=== PATIENT | male | born 1980 | race African-American/Black ===

== ENCOUNTER 2020-06-30 10:59 | Inpatient (IN) | payer MEDICAID, OTHER ==
[2020-06-30] VITALS (15 sets, daily range): BP systolic 133–197; BP diastolic 79–120
[~2020-06-30] VITALS: Ht 172.7 cm; Wt 91.9 kg
[2020-06-30] MEDS ORDERED: SODIUM CHLORIDE 0.9% 1,000 ML IVB ONE (11:30)
[2020-06-30 12:03] LABS: Basophils # (auto) 0 10 ^3/uL (0-0.2); Basophils % (auto) 0.1 % (0.0-2.0); Eosinophils # (auto) 0 10 ^3/uL (0-0.8); Eosinophils % (auto) 0.2 % (0.0-7.0); Hematocrit 36.7 % (41.0-53.0); Hemoglobin 12.2 g/dL (13.5-17.5); Lymphocytes # (auto) 0.4 10 ^3/uL (0.4-5.4); Lymphocytes % (auto) 3.5 % (10.0-50.0); Mean Corpuscular Hemoglobin 22.8 pg (28.0-32.0); Mean Corpuscular Hgb Conc. 33.2 g/dL (32.0-36.0); Mean Corpuscular Volume 68.7 fL (80.0-100.0); Monocytes # (auto) 1.3 10 ^3/uL (0-1.3); Monocytes % (auto) 10.7 % (0.0-12.0); Neutrophils # (auto) 10.6 10 ^3/uL (1.6-8.6); Neutrophils % (auto) 85.5 % (37.0-80.0); Nucleated Red Blood Cells % 0.1 %; Red Blood Cells 5.35 10^6/uL (4.5-5.90); Red Cell Distribution Width 16.8 % (11.8-14.3); White Blood Cell 12.5 10^3/uL (4.4-10.8)
[2020-06-30 12:05] LABS: Platelet Count (auto) 128 10^3/uL (140-450)
[2020-06-30 12:17] LABS: Albumin 3.8 g/dL (3.4-5.0); Calcium 7.8 mg/dL (8.5-10.1); Magnesium 3.8 mg/dL (1.6-2.6)
[2020-06-30 12:23] LABS: Bilirubin, Total 0.6 mg/dL (0.2-1.0)
[2020-06-30] MEDS ORDERED: hydrALAZINE HCL 20 MG/ML VL IV ONE ×2 (12:45→15:15)
[2020-06-30] MEDS ORDERED: ONDANSETRON HCL 4 MG/2 ML VIAL IV ONE (12:45)
[2020-06-30 12:49] LABS: BUN/Creatinine Ratio 6.5
[2020-06-30 12:54] LABS: Potassium 2.8 mmol/L (3.5-5.1)
[2020-06-30] MEDS ORDERED: SODIUM CHL 3% 500 ML IV ONE (13:00)
[2020-06-30] MEDS ORDERED: MORPHINE SULF INJ 2 MG/ML SYRINGE 1ML IV ONE (13:45)
[2020-06-30] MEDS: POTASSIUM CHL 20MEQ/100ML 100 ML IV SCH ×2 (13:57→15:28)
[2020-06-30 14:17] LABS: INR 1.06 (0.9-1.15); Partial Thromboplastin Time 29.3 sec (23.0-31.2)
[2020-06-30] MEDS ORDERED: cefTRIAXone 1GM/50ML D5W 50 ML IV ONE (15:15)
[2020-06-30] MEDS ORDERED: NITROGLYCERIN 0.4 MG SL TAB SL PRN (16:15)
[2020-06-30] MEDS ORDERED: ALPRAZolam 0.5 MG TAB PO PRN (16:15)
[2020-06-30] MEDS ORDERED: ACETAMINOPHEN 325 MG TAB PO PRN (16:15)
[2020-06-30] MEDS ORDERED: MORPHINE SULF INJ 2 MG/ML SYRINGE 1ML IV PRN (16:15)
[2020-06-30 16:43] LABS: Urine Bacteria FEW /hpf (None Seen); Urine Blood 2+ /uL (Negative); Urine Specific Gravity 1.011 (1.001-1.035); Urine WBC 1 /hpf (0 - 3)
[2020-06-30 16:59] LABS: Alcohol, Urine < 3.0 mg/dL (0-10); Amphetamine Screen, Urine NEGATIVE (NEGATIVE); Barbiturate Scree,Urine NEGATIVE (NEGATIVE); Benzodiazephine Screen, Urine NEGATIVE (NEGATIVE); Cannabinoid Screen, Urine POSITIVE (NEGATIVE); Cocaine Screen, Urine NEGATIVE (NEGATIVE); Opiate Scree,Urine NEGATIVE (NEGATIVE); Phencyclidine Screen, Urine NEGATIVE (NEGATIVE)
[2020-06-30] MEDS: HYDROmorphone HCL 2 MG/ML VL IV PRN ×3 (17:01→23:18)
[2020-06-30] MEDS ORDERED: PIPERACILLIN-TAZOB 2.25GM 50 ML IV SCH (18:00)
[2020-06-30 18:09] LABS: Calcium 7.5 mg/dL (8.5-10.1)
[2020-06-30] MEDS ORDERED: LABETALOL HCL 5 MG/ML 4ML SYRINGE IV ONE (18:15)
[2020-06-30 18:18] LABS: BUN/Creatinine Ratio 6.6
[2020-06-30 18:25] LABS: Potassium 2.7 mmol/L (3.5-5.1)
[2020-06-30] MEDS ORDERED: amLODIPine BESYLATE 5 MG TAB PO ONE (18:45)
[2020-06-30] MEDS ORDERED: POTASSIUM CHLORIDE 40 MEQ, LIDOCAINE 1% (LOCAL ANESTH.) 4 ML in SODIUM CHL 0.9% 250 ML IV ONE (18:45)
[2020-06-30] MEDS: hydrALAZINE HCL 20 MG/ML VL IV PRN (20:34)
[2020-06-30] MEDS: HYDROcodone-ACET 10/325MG TAB PO PRN (21:34)
[2020-06-30] MEDS: PIPERACILLIN-TAZOB 2.25GM 50 ML IV SCH (21:54)
[2020-06-30 21:59] LABS: Calcium 7.6 mg/dL (8.5-10.1)
[2020-06-30 22:07] LABS: BUN/Creatinine Ratio 7.1
[2020-07-01] VITALS (38 sets, daily range): BP systolic 110–183; BP diastolic 70–119
[2020-07-01] MEDS: HYDROmorphone HCL 2 MG/ML VL IV PRN ×5 (02:08→23:16)
[2020-07-01 02:35] LABS: Calcium 7.4 mg/dL (8.5-10.1)
[2020-07-01] MEDS: HYDROcodone-ACET 10/325MG TAB PO PRN ×2 (03:34→12:01)
[2020-07-01] MEDS ORDERED: SODIUM CHL 3% 500 ML IV ONE (03:45)
[2020-07-01 04:31] LABS: Basophils # (auto) 0.1 10 ^3/uL (0-0.2); Eosinophils # (auto) 0 10 ^3/uL (0-0.8); Eosinophils % (auto) 0.1 % (0.0-7.0); Lymphocytes # (auto) 0.4 10 ^3/uL (0.4-5.4); Neutrophils # (auto) 12.1 10 ^3/uL (1.6-8.6)
[2020-07-01 04:32] LABS: Basophils % (auto) 0.7 % (0.0-2.0); Hematocrit 31.5 % (41.0-53.0); Hemoglobin 10.5 g/dL (13.5-17.5); Lymphocytes % (auto) 3.1 % (10.0-50.0); Mean Corpuscular Hemoglobin 22.5 pg (28.0-32.0); Mean Corpuscular Hgb Conc. 33.4 g/dL (32.0-36.0); Mean Corpuscular Volume 67.4 fL (80.0-100.0); Monocytes # (auto) 1.6 10 ^3/uL (0-1.3); Monocytes % (auto) 11.1 % (0.0-12.0); Nucleated Red Blood Cells % 0.2 %; Platelet Count (auto) 139 10^3/uL (140-450); Red Blood Cells 4.67 10^6/uL (4.5-5.90); Red Cell Distribution Width 16.3 % (11.8-14.3); White Blood Cell 14.3 10^3/uL (4.4-10.8)
[2020-07-01 04:45] LABS: Calcium 7.6 mg/dL (8.5-10.1); Magnesium 3.2 mg/dL (1.6-2.6)
[2020-07-01 05:12] LABS: BUN/Creatinine Ratio 6.6; Potassium 2.8 mmol/L (3.5-5.1)
[2020-07-01] MEDS ORDERED: POTASSIUM CHL 20MEQ/100ML 100 ML IV ONE (05:30)
[2020-07-01] MEDS ORDERED: POTASSIUM CHL 20MEQ/100ML 200 ML IV ONE (05:32)
[2020-07-01] MEDS: PIPERACILLIN-TAZOB 2.25GM 50 ML IV SCH ×3 (05:53→21:43)
[2020-07-01] MEDS ORDERED: LIDOCAINE 2%HCL (LOCAL ANESTH.) INJ 20ML MDV ONE (09:35)
[2020-07-01] MEDS ORDERED: MIDAZOLAM HCL 1MG/1ML-2 ML VIAL ONE (09:43)
[2020-07-01] MEDS ORDERED: fentaNYL CITRATE 100 MCG/2 ML VL ONE (09:43)
[2020-07-01] MEDS ORDERED: HEPARIN SODIUM (PORCINE) 5000 UNITS/ML 1ML VIAL ONE (09:43)
[2020-07-01] MEDS: hydrALAZINE HCL 20 MG/ML VL IV PRN ×2 (09:59→23:15)
[2020-07-01] MEDS ORDERED: hydrALAZINE HCL 20 MG/ML VL ONE (10:21)
[2020-07-01] MEDS ORDERED: LIDOCAINE W/ EPINEPHRINE 2% INJ 20ML VIAL ONE (10:43)
[2020-07-01] MEDS: ASPirin 81 mg TAB PO SCH (12:00)
[2020-07-01] MEDS: amLODIPine BESYLATE 5 MG TAB PO SCH (12:00)
[2020-07-01] MEDS ORDERED: HEPARIN SODIUM (PORCINE) 5000 UNITS/ML 1ML VIAL IV ONE (12:00)
[2020-07-01] MEDS ORDERED: CALCIUM GLUC 1,000mg/50ml-NS 50 ML IV ONE (14:00)
[2020-07-01 16:10] LABS: Calcium 7.7 mg/dL (8.5-10.1)
[2020-07-01 16:17] LABS: BUN/Creatinine Ratio 6.8
[2020-07-01 16:21] LABS: Potassium 2.9 mmol/L (3.5-5.1)
[2020-07-01] MEDS: POTASSIUM CHL 20MEQ/100ML 100 ML IV SCH ×2 (17:27→19:00)
[2020-07-01] MEDS: ONDANSETRON HCL 4 MG/2 ML VIAL IV PRN (20:53)
[2020-07-01 21:13] LABS: Protein, Urine 381.4 mg/dL (0.0-11.9)
[2020-07-01 21:44] LABS: Urine Bacteria FEW /hpf (None Seen); Urine Blood 2+ /uL (Negative); Urine Mucus FEW (None Seen); Urine Specific Gravity 1.011 (1.001-1.035); Urine WBC 24 /hpf (0 - 3)
[2020-07-02] VITALS (13 sets, daily range): BP systolic 142–175; BP diastolic 85–104
[2020-07-02] MEDS: HYDROmorphone HCL 2 MG/ML VL IV PRN ×5 (02:33→20:23)
[2020-07-02] MEDS: PIPERACILLIN-TAZOB 2.25GM 50 ML IV SCH ×3 (05:17→21:29)
[2020-07-02] MEDS: hydrALAZINE HCL 20 MG/ML VL IV PRN (05:17)
[2020-07-02 06:00] LABS: Calcium 7.7 mg/dL (8.5-10.1); Potassium 3.1 mmol/L (3.5-5.1)
[2020-07-02 06:08] LABS: BUN/Creatinine Ratio 6.4; Uric Acid 10.4 mg/dL (3.5-7.2)
[2020-07-02] MEDS: ASPirin 81 mg TAB PO SCH (10:05)
[2020-07-02] MEDS: amLODIPine BESYLATE 5 MG TAB PO SCH (10:09)
[2020-07-02 11:28] LABS: Calcium 8.3 mg/dL (8.5-10.1)
[2020-07-02 11:37] LABS: BUN/Creatinine Ratio 6.2
[2020-07-02] MEDS: POTASSIUM CHL 20 Meq TABLET PO ONE ×3 (12:15→18:05)
[2020-07-02 14:26] LABS: Calcium 8.2 mg/dL (8.5-10.1)
[2020-07-02 14:58] LABS: BUN/Creatinine Ratio 6.5
[2020-07-02] MEDS: HYDROcodone-ACET 10/325MG TAB PO PRN (17:26)
[2020-07-02 18:17] LABS: Calcium 7.8 mg/dL (8.5-10.1)
[2020-07-02 18:25] LABS: BUN/Creatinine Ratio 6.4
[2020-07-02 22:33] LABS: Calcium 7.8 mg/dL (8.5-10.1); Potassium 3.1 mmol/L (3.5-5.1)
[2020-07-02 22:44] LABS: BUN/Creatinine Ratio 6.3
[2020-07-02] MEDS ORDERED: DOCUSATE SOD 100 MG CAP PO PRN ×2 (22:45→23:00)
[2020-07-02] MEDS ORDERED: TEMAZEPAM 15 MG CAP PO ONE (22:45)
[2020-07-03] MEDS: HYDROmorphone HCL 2 MG/ML VL IV PRN ×6 (04:49→23:10)
[2020-07-03] MEDS: hydrALAZINE HCL 20 MG/ML VL IV PRN ×2 (05:04→17:19)
[2020-07-03] MEDS: PIPERACILLIN-TAZOB 2.25GM 50 ML IV SCH ×3 (06:13→21:50)
[2020-07-03] MEDS: ASPirin 81 mg TAB PO SCH (08:18)
[2020-07-03 09:00] VITALS: BP 148/91
[2020-07-03 09:59] LABS: Hematocrit 28.2 % (41.0-53.0); Hemoglobin 9.1 g/dL (13.5-17.5); Red Cell Distribution Width 16.6 % (11.8-14.3)
[2020-07-03 10:00] LABS: Mean Corpuscular Hemoglobin 22.1 pg (28.0-32.0); Mean Corpuscular Hgb Conc. 32.2 g/dL (32.0-36.0); Mean Corpuscular Volume 68.6 fL (80.0-100.0); Platelet Count (auto) 138 10^3/uL (140-450); Red Blood Cells 4.11 10^6/uL (4.5-5.90); White Blood Cell 13.2 10^3/uL (4.4-10.8)
[2020-07-03] MEDS: amLODIPine BESYLATE 5 MG TAB PO SCH (10:00)
[2020-07-03 10:08] LABS: Albumin 3.3 g/dL (3.4-5.0); Calcium 8.4 mg/dL (8.5-10.1); Potassium 3.3 mmol/L (3.5-5.1)
[2020-07-03 10:16] LABS: BUN/Creatinine Ratio 6.2; Bilirubin, Total 0.6 mg/dL (0.2-1.0)
[2020-07-03 10:17] LABS: Basophils % (manual) 0 (0.0-2.0); Blast Cells 0; Metamyelocytes % 0; Myelocytes % 0; Promyelocytes % 0; Reactive Lymphocytes 0
[2020-07-03 12:01] LABS: Band Neutrophils % (manual) 1; Eosinophils % (manual) 1 (0-7); Lymphocytes % (manual) 7 (10.0-50.0); Monocytes % (manual) 9 (0-12)
[2020-07-03 16:55] VITALS: BP 166/100
[2020-07-03] MEDS ORDERED: SODIUM CHL 0.9% 1000 ML BAG XX ONE (17:30)
[2020-07-03] MEDS: ALBUTEROL SULF 2.5 MG/0.5ML(0.5%) NEB SOLN NEB PRN (18:00)
[2020-07-03 20:37] VITALS: BP 194/110
[2020-07-03] MEDS ORDERED: EPOETIN ALFA-EPBX 10,000 UNIT/1ML VIAL SC ONE (21:00)
[2020-07-03 22:00] VITALS: BP 153/91
[2020-07-04] MEDS: HYDROmorphone HCL 2 MG/ML VL IV PRN ×6 (02:25→23:53)
[2020-07-04 05:00] VITALS: BP 148/90
[2020-07-04] MEDS: PIPERACILLIN-TAZOB 2.25GM 50 ML IV SCH (05:13)
[2020-07-04 07:43] LABS: Basophils # (auto) 0.1 10 ^3/uL (0-0.2); Basophils % (auto) 0.6 % (0.0-2.0); Eosinophils # (auto) 0.1 10 ^3/uL (0-0.8); Eosinophils % (auto) 1.2 % (0.0-7.0); Hemoglobin 7.7 g/dL (13.5-17.5); Lymphocytes # (auto) 0.6 10 ^3/uL (0.4-5.4); Mean Corpuscular Hemoglobin 22.4 pg (28.0-32.0); Monocytes # (auto) 1.5 10 ^3/uL (0-1.3); Neutrophils # (auto) 9.1 10 ^3/uL (1.6-8.6)
[2020-07-04 07:44] LABS: Hematocrit 23.1 % (41.0-53.0); Lymphocytes % (auto) 5.4 % (10.0-50.0); Mean Corpuscular Hgb Conc. 33.2 g/dL (32.0-36.0); Mean Corpuscular Volume 67.5 fL (80.0-100.0); Neutrophils % (auto) 79.8 % (37.0-80.0); Nucleated Red Blood Cells % 0.2 %; Platelet Count (auto) 118 10^3/uL (140-450); Red Blood Cells 3.42 10^6/uL (4.5-5.90); Red Cell Distribution Width 16.9 % (11.8-14.3); White Blood Cell 11.3 10^3/uL (4.4-10.8)
[2020-07-04 08:17] LABS: Albumin 2.9 g/dL (3.4-5.0); BUN/Creatinine Ratio 5.7; Calcium 8.2 mg/dL (8.5-10.1); Potassium 3.1 mmol/L (3.5-5.1)
[2020-07-04 08:20] LABS: Bilirubin, Total 0.5 mg/dL (0.2-1.0); Total Protein 6.2 g/dL (6.4-8.2)
[2020-07-04 09:00] VITALS: BP_SYST 106; BP_SYST 163; BP_DIAS 107; BP_DIAS 71
[2020-07-04] MEDS: amLODIPine BESYLATE 5 MG TAB PO SCH (10:00)
[2020-07-04] MEDS: ASPirin 81 mg TAB PO SCH (10:00)
[2020-07-04] MEDS ORDERED: LIDOCAINE 2%HCL (LOCAL ANESTH.) INJ 20ML MDV ONE (11:25)
[2020-07-04 13:00] VITALS: BP 163/107
[2020-07-04 13:02] LABS: Hepatitis A Ab IgM Negative; Hepatitis B Core IgM Negative; Hepatitis B Surface Antigen Negative (Negative); Hepatitis C Antibody Negative (Negative)
[2020-07-04 17:00] VITALS: BP 157/98
[2020-07-04] MEDS: ALBUTEROL SULF 2.5 MG/0.5ML(0.5%) NEB SOLN NEB PRN (19:21)
[2020-07-04] MEDS: CALCIUM ACETATE 667 MG CAP PO SCH (19:25)
[2020-07-04] MEDS: AMPICILLIN & SULBACTAM SODIUM 3 GM in SODIUM CHL 0.9% 100 ML IV SCH (19:25)
[2020-07-04 22:00] VITALS: BP 141/104
[2020-07-05] MEDS: HYDROmorphone HCL 2 MG/ML VL IV PRN ×4 (03:03→12:44)
[2020-07-05 05:00] VITALS: BP 168/115
[2020-07-05] MEDS: HYDROcodone-ACET 10/325MG TAB PO PRN ×2 (05:19→12:29)
[2020-07-05] MEDS: hydrALAZINE HCL 20 MG/ML VL IV PRN (05:58)
[2020-07-05 05:59] LABS: Basophils # (auto) 0.1 10 ^3/uL (0-0.2); Eosinophils # (auto) 0.2 10 ^3/uL (0-0.8); Nucleated Red Blood Cells % 0.1 %
[2020-07-05 06:01] LABS: Basophils % (auto) 0.5 % (0.0-2.0); Hemoglobin 7.6 g/dL (13.5-17.5); Lymphocytes % (auto) 8.8 % (10.0-50.0); Mean Corpuscular Hemoglobin 22.6 pg (28.0-32.0); Mean Corpuscular Hgb Conc. 32.8 g/dL (32.0-36.0); Mean Corpuscular Volume 68.8 fL (80.0-100.0); Neutrophils % (auto) 79.7 % (37.0-80.0); Platelet Count (auto) 118 10^3/uL (140-450); Red Blood Cells 3.35 10^6/uL (4.5-5.90); White Blood Cell 11.3 10^3/uL (4.4-10.8)
[2020-07-05 06:23] LABS: BUN/Creatinine Ratio 5.2; Calcium 7.8 mg/dL (8.5-10.1); Magnesium 2.5 mg/dL (1.6-2.6)
[2020-07-05 06:25] LABS: Potassium 2.8 mmol/L (3.5-5.1)
[2020-07-05] MEDS ORDERED: SODIUM CHL 0.9% 1000 ML BAG XX ONE (07:00)
[2020-07-05] MEDS: CALCIUM ACETATE 667 MG CAP PO SCH ×3 (08:00→18:00)
[2020-07-05] MEDS: ONDANSETRON HCL 4 MG/2 ML VIAL IV PRN (08:42)
[2020-07-05 09:00] VITALS: BP 160/103
[2020-07-05] MEDS: ALBUTEROL SULF 2.5 MG/0.5ML(0.5%) NEB SOLN NEB PRN (10:29)
[2020-07-05] MEDS: ASPirin 81 mg TAB PO SCH (12:29)
[2020-07-05] MEDS: amLODIPine BESYLATE 5 MG TAB PO SCH (12:31)
[2020-07-05 13:00] VITALS: BP 138/74
[2020-07-05 16:17] VITALS: BP 150/100
[2020-07-05] MEDS: AMPICILLIN & SULBACTAM SODIUM 3 GM in SODIUM CHL 0.9% 100 ML IV SCH (16:45)
[2020-07-05] MEDS ORDERED: EPOETIN ALFA-EPBX 10,000 UNIT/1ML VIAL SC ONE (21:00)
[2020-07-06] MEDS ORDERED: LOSARTAN POTASSIUM 50 MG TAB PO SCH (10:00)
== END 2020-07-05 17:00 | disposition home health service (06) | DRG 469 ==
LOC: ER 10:59 → EDBD 10:59 → TELE 16:23 → ICU WEST 19:53 → TELE-WESTW 07-02 12:13
PROVIDERS: ADMIT Internal Medicine; ATTEND Internal Medicine
PROC: 0JH63XZ Insertion of Tunneled Vascular Access Device into Chest Subcutaneous Tissue and Fascia, Percutaneous Approach (ICD-10-PCS; principal; 2020-07-01)
PROC: 02H633Z Insertion of Infusion Device into Right Atrium, Percutaneous Approach (ICD-10-PCS; 2020-07-01)
PROC: B5181ZA Fluoroscopy of Superior Vena Cava using Low Osmolar Contrast, Guidance (ICD-10-PCS; 2020-07-01)
PROC: B548ZZA Ultrasonography of Superior Vena Cava, Guidance (ICD-10-PCS; 2020-07-01)
PROC: 5A1D70Z Performance of Urinary Filtration, Intermittent, Less than 6 Hours Per Day (ICD-10-PCS; 2020-07-01)
PROC: 5A1D70Z Performance of Urinary Filtration, Intermittent, Less than 6 Hours Per Day (ICD-10-PCS; 2020-07-03)
PROC: 5A1D70Z Performance of Urinary Filtration, Intermittent, Less than 6 Hours Per Day (ICD-10-PCS; 2020-07-05)
DX: N17.9 Acute kidney failure, unspecified (principal); E87.2 Acidosis; D69.6 Thrombocytopenia, unspecified; E87.4 Mixed disorder of acid-base balance; F11.20 Opioid dependence, uncomplicated; E87.1 Hypo-osmolality and hyponatremia; E86.0 Dehydration; I12.0 Hypertensive chronic kidney disease with stage 5 chronic kidney disease or end stage renal disease; N18.6 End stage renal disease; E86.1 Hypovolemia; T82.838A Hemorrhage due to vascular prosthetic devices, implants and grafts, initial encounter; K04.7 Periapical abscess without sinus; E87.6 Hypokalemia; M48.061 Spinal stenosis, lumbar region without neurogenic claudication; D50.0 Iron deficiency anemia secondary to blood loss (chronic); D63.1 Anemia in chronic kidney disease; E55.9 Vitamin D deficiency, unspecified; F12.90 Cannabis use, unspecified, uncomplicated; I16.1 Hypertensive emergency; M54.5 Low back pain; Z20.822 Contact with and (suspected) exposure to COVID-19; D72.829 Elevated white blood cell count, unspecified; A49.02 Methicillin resistant Staphylococcus aureus infection, unspecified site; K82.8 Other specified diseases of gallbladder; Z74.01 Bed confinement status; Z82.49 Family history of ischemic heart disease and other diseases of the circulatory system; Z91.19 Patient's noncompliance with other medical treatment and regimen; Z83.3 Family history of diabetes mellitus; Y84.1 Kidney dialysis as the cause of abnormal reaction of the patient, or of later complication, without mention of misadventure at the time of the procedure; Y92.238 Other place in hospital as the place of occurrence of the external cause
CPT/HCPCS: 36415; 36561; 70486; 71045; 72131; 74176; 76000; 76700; 76942; 77001; 80048; 80053; 80074; 80307; 81001; 82306; 82550; 82570; 83735; 83880; 84100; 84156; 84300; 84484; 84550; 85007; 85025; 85027; 85610; 85730; 87040; 87081; 87426; 90935; 93306; 94640; 96361; 96365; 96375; 99152; 99291; G0378; J0696; J1642; J2001; J2250; J2405; J2543; J3480; J3490

== ENCOUNTER 2020-07-19 05:21 | Inpatient (IN) | payer MEDICAID ==
[~2020-07-19] VITALS: Ht 172.7 cm; Wt 80.8 kg
[2020-07-19] MEDS ORDERED: ONDANSETRON HCL 4 MG/2 ML VIAL ONE (06:32)
[2020-07-19 06:42] LABS: Hematocrit 25.7 % (41.0-53.0); Hemoglobin 8.2 g/dL (13.5-17.5); Monocytes # (auto) 0.6 10 ^3/uL (0-1.3)
[2020-07-19 06:52] LABS: Basophils # (auto) 0.2 10 ^3/uL (0-0.2); Basophils % (auto) 2.3 % (0.0-2.0); Eosinophils # (auto) 0.1 10 ^3/uL (0-0.8); Eosinophils % (auto) 0.9 % (0.0-7.0); Lymphocytes # (auto) 0.8 10 ^3/uL (0.4-5.4); Lymphocytes % (auto) 11.5 % (10.0-50.0); Mean Corpuscular Hemoglobin 22.4 pg (28.0-32.0); Mean Corpuscular Hgb Conc. 31.8 g/dL (32.0-36.0); Mean Corpuscular Volume 70.6 fL (80.0-100.0); Monocytes % (auto) 9.1 % (0.0-12.0); Neutrophils # (auto) 5.4 10 ^3/uL (1.6-8.6); Neutrophils % (auto) 76.2 % (37.0-80.0); Nucleated Red Blood Cells % 0.2 %; Platelet Count (auto) 429 10^3/uL (140-450); Red Blood Cells 3.65 10^6/uL (4.5-5.90); Red Cell Distribution Width 19.7 % (11.8-14.3)
[2020-07-19 06:55] LABS: INR 1.09 (0.9-1.15); Partial Thromboplastin Time 28.8 sec (23.0-31.2)
[2020-07-19] MEDS ORDERED: LABETALOL HCL 5 MG/ML 4ML SYRINGE IV ONE ×2 (07:00→07:02)
[2020-07-19] MEDS ORDERED: MORPHINE SULFATE 4 MG/ML SYR/VIAL IV ONE (07:00)
[2020-07-19 07:05] LABS: Albumin 3.3 g/dL (3.4-5.0); Calcium 8.9 mg/dL (8.5-10.1); Magnesium 2.3 mg/dL (1.6-2.6)
[2020-07-19 07:11] LABS: BUN/Creatinine Ratio 1.9; Bilirubin, Total 0.4 mg/dL (0.2-1.0); Total Protein 7.2 g/dL (6.4-8.2)
[2020-07-19] MEDS ORDERED: HYDROmorphone HCL 2 MG/ML VL IV ONE (08:00)
[2020-07-19] MEDS ORDERED: ENOXAPARIN SOD 80 MG/0.8ML SYRINGE SC ONE (08:00)
[2020-07-19] MEDS ORDERED: ALBUTEROL SULF 2.5 MG/0.5ML(0.5%) NEB SOLN NEB ONE (08:00)
[2020-07-19] MEDS ORDERED: IPRATROPIUM BROM 0.5 MG/2.5ML INH SOL NEB ONE (08:00)
[2020-07-19] MEDS ORDERED: FUROSEMIDE 40 MG/4 ML VIAL IV ONE (08:00)
[2020-07-19] MEDS ORDERED: LORazepam 2MG/ML-1ML VIAL IV ONE (08:00)
[2020-07-19] MEDS ORDERED: amLODIPine BESYLATE 5 MG TAB PO ONE (10:30)
[2020-07-19] MEDS ORDERED: NITROGLYCERIN 0.4 MG SL TAB SL PRN (10:45)
[2020-07-19] MEDS ORDERED: HYDROcodone-ACET 5/325MG TAB PO PRN (10:45)
[2020-07-19] MEDS ORDERED: MORPHINE SULF INJ 2 MG/ML SYRINGE 1ML IV PRN (10:45)
[2020-07-19] MEDS ORDERED: ONDANSETRON HCL 4 MG/2 ML VIAL IV PRN (10:45)
[2020-07-19 10:51] VITALS: BP 192/139
[2020-07-19] MEDS: METOPROLOL TARTRATE 25 MG TAB PO SCH ×2 (10:53→22:01)
[2020-07-19] MEDS: POTASSIUM CHL 20 Meq TABLET PO ONE ×2 (10:53→11:00)
[2020-07-19] MEDS: hydrALAZINE HCL 20 MG/ML VL IV ONE ×2 (10:54→11:30)
[2020-07-19] MEDS: amLODIPine BESYLATE 5 MG TAB PO SCH (10:55)
[2020-07-19] MEDS ORDERED: SODIUM CHL 0.9% 1000 ML BAG XX ONE (12:30)
[2020-07-19] MEDS: MORPHINE SULF INJ 2 MG/ML SYRINGE 1ML IV PRN ×2 (13:38→20:45)
[2020-07-19] MEDS: hydrALAZINE HCL 20 MG/ML VL IV PRN ×3 (13:52→22:34)
[2020-07-19] MEDS: CARVEDILOL 3.125 MG TAB PO SCH ×2 (14:00→22:01)
[2020-07-19] MEDS ORDERED: hydrALAZINE HCL 20 MG/ML VL ONE (14:00)
[2020-07-19] MEDS ORDERED: CARVEDILOL 3.125 MG TAB ONE (14:00)
[2020-07-19] MEDS ORDERED: hydrALAZINE HCL 20 MG/ML VL IV ONE (14:15)
[2020-07-19] MEDS ORDERED: ENALAPRILAT 1.25 MG/ML-1ML VIAL IV PRN (14:30)
[2020-07-19] MEDS ORDERED: HEPARIN SODIUM (PORCINE) 5000 UNITS/ML 1ML VIAL ONE (14:31)
[2020-07-19] MEDS: ALBUTEROL SULF 2.5 MG/0.5ML(0.5%) NEB SOLN NEB PRN (14:42)
[2020-07-19] MEDS ORDERED: IOHEXOL 350 MG/ML 100ML IJ ONE (16:10)
[2020-07-19] MEDS: HYOSCYAMINE SULF 0.125 MG ODT TAB PO PRN (16:39)
[2020-07-19] MEDS: hydrALAZINE HCL 10 MG TAB PO SCH ×2 (16:49→18:14)
[2020-07-19] MEDS: HYDROcodone-ACET 10/325MG TAB PO PRN (18:13)
[2020-07-19 18:20] LABS: Basophils # (auto) 0.2 10 ^3/uL (0-0.2); Basophils % (auto) 2.1 % (0.0-2.0); Eosinophils # (auto) 0.1 10 ^3/uL (0-0.8); Eosinophils % (auto) 0.9 % (0.0-7.0); Hematocrit 27.1 % (41.0-53.0); Hemoglobin 8.5 g/dL (13.5-17.5); Lymphocytes # (auto) 1.2 10 ^3/uL (0.4-5.4); Lymphocytes % (auto) 13.6 % (10.0-50.0); Mean Corpuscular Hemoglobin 22.5 pg (28.0-32.0); Mean Corpuscular Hgb Conc. 31.6 g/dL (32.0-36.0); Mean Corpuscular Volume 71.3 fL (80.0-100.0); Monocytes # (auto) 0.9 10 ^3/uL (0-1.3); Monocytes % (auto) 9.7 % (0.0-12.0); Neutrophils # (auto) 6.5 10 ^3/uL (1.6-8.6); Neutrophils % (auto) 73.7 % (37.0-80.0); Nucleated Red Blood Cells % 0.1 %; Platelet Count (auto) 455 10^3/uL (140-450); Red Cell Distribution Width 19.5 % (11.8-14.3); White Blood Cell 8.8 10^3/uL (4.4-10.8)
[2020-07-19 18:27] LABS: Albumin 3.2 g/dL (3.4-5.0); Calcium 8.6 mg/dL (8.5-10.1); Potassium 3.8 mmol/L (3.5-5.1)
[2020-07-19] MEDS: ALBUTEROL SULF 2.5 MG/0.5ML(0.5%) NEB SOLN NEB SCH (18:31)
[2020-07-19 18:32] LABS: BUN/Creatinine Ratio 1.6; Bilirubin, Total 0.6 mg/dL (0.2-1.0); Total Protein 7.4 g/dL (6.4-8.2)
[2020-07-19] MEDS: METOPROLOL TARTRATE 1MG/1ML-5ML VIAL IV PRN (19:05)
[2020-07-19] MEDS ORDERED: EPOETIN ALFA-EPBX 10,000 UNIT/1ML VIAL SC ONE (21:00)
[2020-07-19] MEDS ORDERED: MORPHINE SULF INJ 2 MG/ML SYRINGE 1ML IV ONE (21:15)
[2020-07-19] MEDS ORDERED: ONDANSETRON HCL 4 MG/2 ML VIAL IV ONE (21:15)
[2020-07-19] MEDS ORDERED: CARVEDILOL 3.125 MG TAB PO SCH (22:00)
[2020-07-20] MEDS: hydrALAZINE HCL 10 MG TAB PO SCH ×4 (00:30→23:41)
[2020-07-20] MEDS: HYDROcodone-ACET 10/325MG TAB PO PRN ×3 (00:44→20:41)
[2020-07-20] MEDS: ALBUTEROL SULF 2.5 MG/0.5ML(0.5%) NEB SOLN NEB PRN (02:18)
[2020-07-20 03:17] LABS: Urine Bacteria FEW /hpf (None Seen); Urine Blood TRACE /uL (Negative); Urine WBC 97 /hpf (0 - 3)
[2020-07-20] MEDS: METOPROLOL TARTRATE 1MG/1ML-5ML VIAL IV PRN (03:28)
[2020-07-20] MEDS: MORPHINE SULF INJ 2 MG/ML SYRINGE 1ML IV PRN ×2 (03:45→15:45)
[2020-07-20] MEDS: HYOSCYAMINE SULF 0.125 MG ODT TAB PO PRN (05:27)
[2020-07-20] MEDS: ALBUTEROL SULF 2.5 MG/0.5ML(0.5%) NEB SOLN NEB SCH ×4 (06:40→19:05)
[2020-07-20] MEDS ORDERED: LACTULOSE 20Gm/30ML SOLN ONE (08:26)
[2020-07-20] MEDS: cefTRIAXone 1GM/50ML D5W 50 ML IV SCH (08:39)
[2020-07-20] MEDS: AZITHROMYCIN 500MG/ 250ML 250 ML IV SCH (08:40)
[2020-07-20] MEDS: METOPROLOL TARTRATE 25 MG TAB PO SCH (08:41)
[2020-07-20] MEDS: CARVEDILOL 3.125 MG TAB PO SCH ×2 (08:41→21:45)
[2020-07-20] MEDS: LACTULOSE 20Gm/30ML SOLN PO PRN ×2 (08:43→21:45)
[2020-07-20 17:00] VITALS: BP 145/99
[2020-07-20] MEDS: HYDROmorphone HCL 2 MG TAB PO PRN (21:53)
[2020-07-20 22:00] VITALS: BP 152/93
[2020-07-20] MEDS ORDERED: AMOX250C3 PO (23:34)
[2020-07-20] MEDS ORDERED: CLON0.1T PO (23:34)
[2020-07-20] MEDS ORDERED: ALBU1TAB2 IN (23:34)
[2020-07-20] MEDS ORDERED: POTA10TA51 PO (23:34)
[2020-07-20] MEDS ORDERED: OMEP20TA PO (23:34)
[2020-07-20] MEDS ORDERED: POLY33504 PO (23:34)
[2020-07-20] MEDS ORDERED: HYDR1TAB97 PO (23:34)
[2020-07-20] MEDS ORDERED: AMLO-489 PO (23:34)
[2020-07-21] MEDS: HYDROmorphone HCL 2 MG TAB PO PRN ×4 (02:27→13:29)
[2020-07-21 05:00] VITALS: BP 172/103
[2020-07-21] MEDS: hydrALAZINE HCL 10 MG TAB PO SCH ×2 (05:10→12:08)
[2020-07-21] MEDS ORDERED: SODIUM CHLORIDE 0.9 % NEB SOLN 3ML NEB ONE ×2 (05:59→11:36)
[2020-07-21] MEDS: HYOSCYAMINE SULF 0.125 MG ODT TAB PO PRN ×2 (06:23→12:08)
[2020-07-21] MEDS ORDERED: SODIUM CHL 0.9% 1000 ML BAG XX ONE (07:15)
[2020-07-21] MEDS ORDERED: ALBUAER3 IN (07:35)
[2020-07-21] MEDS ORDERED: NALO1TAB PO (07:35)
[2020-07-21] MEDS ORDERED: AMLO-489 PO (07:35)
[2020-07-21] MEDS ORDERED: DOXY-338 PO (07:35)
[2020-07-21] MEDS ORDERED: HYDR10TA26 PO (07:35)
[2020-07-21] MEDS ORDERED: CAR125T PO (07:35)
[2020-07-21] MEDS: ALBUTEROL SULF 2.5 MG/0.5ML(0.5%) NEB SOLN NEB SCH ×2 (07:56→11:52)
[2020-07-21 08:26] VITALS: BP 184/120
[2020-07-21 08:42] LABS: Basophils # (auto) 0.1 10 ^3/uL (0-0.2); Hemoglobin 9.2 g/dL (13.5-17.5); Nucleated Red Blood Cells % 0.2 %; White Blood Cell 8.4 10^3/uL (4.4-10.8)
[2020-07-21 08:44] LABS: Basophils % (auto) 1.3 % (0.0-2.0); Eosinophils # (auto) 0.1 10 ^3/uL (0-0.8); Eosinophils % (auto) 1.7 % (0.0-7.0); Hematocrit 28.5 % (41.0-53.0); Lymphocytes # (auto) 1.4 10 ^3/uL (0.4-5.4); Lymphocytes % (auto) 16.5 % (10.0-50.0); Mean Corpuscular Hemoglobin 22.7 pg (28.0-32.0); Mean Corpuscular Hgb Conc. 32.2 g/dL (32.0-36.0); Mean Corpuscular Volume 70.5 fL (80.0-100.0); Monocytes % (auto) 11.5 % (0.0-12.0); Neutrophils # (auto) 5.8 10 ^3/uL (1.6-8.6); Platelet Count (auto) 546 10^3/uL (140-450); Red Blood Cells 4.05 10^6/uL (4.5-5.90)
[2020-07-21 08:50] LABS: Red Cell Distribution Width 20.1 % (11.8-14.3)
[2020-07-21] MEDS: cefTRIAXone 1GM/50ML D5W 50 ML IV SCH (09:43)
[2020-07-21] MEDS: amLODIPine BESYLATE 5 MG TAB PO SCH (09:43)
[2020-07-21] MEDS: AZITHROMYCIN 500MG/ 250ML 250 ML IV SCH (09:46)
[2020-07-21] MEDS ORDERED: CARVEDILOL 12.5 MG TAB PO SCH (10:00)
[2020-07-21 12:43] VITALS: BP 153/102
[2020-07-21 13:16] VITALS: BP 153/102
[2020-07-21] MEDS ORDERED: EPOETIN ALFA-EPBX 10,000 UNIT/1ML VIAL SC ONE (21:00)
== END 2020-07-21 16:37 | disposition home health service (06) | DRG 254 ==
LOC: EDBD 05:21 → ER 05:21 → TELE 10:33 → TELE-EAST 07-20 16:00
PROVIDERS: ADMIT Internal Medicine; ATTEND Internal Medicine
PROC: 5A1D70Z Performance of Urinary Filtration, Intermittent, Less than 6 Hours Per Day (ICD-10-PCS; principal; 2020-07-19)
PROC: 05HF33Z Insertion of Infusion Device into Left Cephalic Vein, Percutaneous Approach (ICD-10-PCS; 2020-07-19)
PROC: B54NZZA Ultrasonography of Left Upper Extremity Veins, Guidance (ICD-10-PCS; 2020-07-19)
PROC: 5A1D70Z Performance of Urinary Filtration, Intermittent, Less than 6 Hours Per Day (ICD-10-PCS; 2020-07-21)
DX: K59.09 Other constipation (principal); I13.2 Hypertensive heart and chronic kidney disease with heart failure and with stage 5 chronic kidney disease, or end stage renal disease; J18.9 Pneumonia, unspecified organism; N18.6 End stage renal disease; I50.9 Heart failure, unspecified; F11.20 Opioid dependence, uncomplicated; I16.1 Hypertensive emergency; Z20.822 Contact with and (suspected) exposure to COVID-19; G89.4 Chronic pain syndrome; G40.909 Epilepsy, unspecified, not intractable, without status epilepticus; J45.909 Unspecified asthma, uncomplicated; N40.0 Benign prostatic hyperplasia without lower urinary tract symptoms; Z80.42 Family history of malignant neoplasm of prostate; Z82.49 Family history of ischemic heart disease and other diseases of the circulatory system; Z68.27 Body mass index [BMI] 27.0-27.9, adult; Z83.3 Family history of diabetes mellitus; Z91.19 Patient's noncompliance with other medical treatment and regimen; Z99.2 Dependence on renal dialysis
CPT/HCPCS: 36415; 71045; 71275; 74176; 76775; 80053; 81001; 82784; 83516; 83735; 84154; 84484; 85025; 85610; 85730; 86255; 87081; 87086; 87426; 90935; 93005; 93306; 94640; 96372; 96374; 96375; G0378; J0696; J1642; J2405; J3490

== ENCOUNTER 2020-08-16 13:53 | Inpatient (IN) | payer MEDICAID ==
[~2020-08-16] VITALS: Ht 172.7 cm; Wt 77.1 kg
[~2020-08-16 13:53] MED LIST: ALBU1TAB2 IN; ALBUAER3 IN; AMLO-489 PO; CAR125T PO; CLON0.1T PO; DOXY-338 PO; HYDR10TA26 PO; HYDR1TAB97 PO; NALO1TAB PO; OMEP20TA PO; POLY33504 PO; POTA10TA51 PO
[2020-08-16] MEDS ORDERED: ONDANSETRON HCL 4 MG/2 ML VIAL IV ONE (14:15)
[2020-08-16] MEDS ORDERED: PIPERACILLIN-TAZOB 3.375GM 100 ML IV ONE (16:15)
[2020-08-16] MEDS ORDERED: MORPHINE SULFATE 4 MG/ML SYR/VIAL IV ONE (16:45)
[2020-08-16] MEDS ORDERED: MORPHINE SULFATE 4 MG/ML SYR/VIAL ONE (16:45)
[2020-08-16 16:55] LABS: Basophils # (auto) 0.1 10 ^3/uL (0-0.2); Basophils % (auto) 0.6 % (0.0-2.0); Eosinophils # (auto) 0 10 ^3/uL (0-0.8); Eosinophils % (auto) 0.1 % (0.0-7.0); Hematocrit 27.5 % (41.0-53.0); Monocytes # (auto) 1.1 10 ^3/uL (0-1.3); Nucleated Red Blood Cells % 0.2 %
[2020-08-16 16:58] LABS: Hemoglobin 9.1 g/dL (13.5-17.5); Lymphocytes # (auto) 3.4 10 ^3/uL (0.4-5.4); Mean Corpuscular Hemoglobin 22.9 pg (28.0-32.0); Mean Corpuscular Volume 69.3 fL (80.0-100.0); Neutrophils # (auto) 13.3 10 ^3/uL (1.6-8.6); Neutrophils % (auto) 74.3 % (37.0-80.0); Platelet Count (auto) 135 10^3/uL (140-450); Red Blood Cells 3.97 10^6/uL (4.5-5.90); White Blood Cell 17.9 10^3/uL (4.4-10.8)
[2020-08-16 17:04] LABS: Red Cell Distribution Width 23.9 % (11.8-14.3)
[2020-08-16 17:11] LABS: Albumin 2.9 g/dL (3.4-5.0); Calcium 8.1 mg/dL (8.5-10.1); Potassium 4.2 mmol/L (3.5-5.1)
[2020-08-16 17:15] LABS: Bilirubin, Total 1.2 mg/dL (0.2-1.0); Total Protein 6.4 g/dL (6.4-8.2)
[2020-08-16] MEDS ORDERED: HYDROmorphone HCL 2 MG/ML VL IV ONE (17:30)
[2020-08-16] MEDS ORDERED: ENOXAPARIN SOD 80 MG/0.8ML SYRINGE SC ONE (17:30)
[2020-08-16] MEDS ORDERED: NITROGLYCERIN 0.4 MG SL TAB SL PRN (18:00)
[2020-08-16] MEDS ORDERED: ACETAMINOPHEN 325 MG TAB PO PRN (18:00)
[2020-08-16] MEDS: ENOXAPARIN SOD 80 MG/0.8ML SYRINGE SC SCH (18:30)
[2020-08-16] MEDS ORDERED: METOPROLOL TARTRATE 25 MG TAB PO ONE (19:30)
[2020-08-16] MEDS: HYDROmorphone HCL 2 MG/ML VL IV PRN (19:54)
[2020-08-16] MEDS: ONDANSETRON HCL 4 MG/2 ML VIAL IV PRN (19:55)
[2020-08-16] MEDS: METOPROLOL TARTRATE 25 MG TAB PO SCH (22:42)
[2020-08-16] MEDS: ATORVASTATIN 20 MG TAB PO SCH (22:42)
[2020-08-16] MEDS: HYDROcodone-ACET 10/325MG TAB PO PRN (22:43)
[2020-08-17] VITALS (75 sets, daily range): BP systolic 114–195; BP diastolic 10–123
[2020-08-17] MEDS: ONDANSETRON HCL 4 MG/2 ML VIAL IV PRN (01:38)
[2020-08-17] MEDS: HYDROmorphone HCL 2 MG/ML VL IV PRN ×6 (01:39→22:01)
[2020-08-17 04:22] LABS: Hematocrit 23.9 % (41.0-53.0); Hemoglobin 7.8 g/dL (13.5-17.5); Mean Corpuscular Hemoglobin 22.3 pg (28.0-32.0); Mean Corpuscular Hgb Conc. 32.4 g/dL (32.0-36.0); Mean Corpuscular Volume 68.9 fL (80.0-100.0); Platelet Count (auto) 138 10^3/uL (140-450); Red Blood Cells 3.47 10^6/uL (4.5-5.90)
[2020-08-17 04:27] LABS: Red Cell Distribution Width 23.2 % (11.8-14.3)
[2020-08-17 04:29] LABS: Basophils % (manual) 0 (0.0-2.0); Blast Cells 0; Eosinophils % (manual) 0 (0-7); Metamyelocytes % 0; Myelocytes % 0; Promyelocytes % 0; Reactive Lymphocytes 0
[2020-08-17 04:36] LABS: Albumin 2.5 g/dL (3.4-5.0); Calcium 7.9 mg/dL (8.5-10.1); Magnesium 2.2 mg/dL (1.6-2.6); Potassium 4.8 mmol/L (3.5-5.1)
[2020-08-17 04:42] LABS: BUN/Creatinine Ratio 5.4; Bilirubin, Total 0.7 mg/dL (0.2-1.0); Total Protein 5.3 g/dL (6.4-8.2)
[2020-08-17 05:23] LABS: Band Neutrophils % (manual) 1; Lymphocytes % (manual) 7 (10.0-50.0); Monocytes % (manual) 4 (0-12)
[2020-08-17] MEDS: MORPHINE SULF INJ 2 MG/ML SYRINGE 1ML IV PRN ×2 (08:44→17:00)
[2020-08-17] MEDS: HYDROcodone-ACET 10/325MG TAB PO PRN ×2 (09:11→20:03)
[2020-08-17] MEDS ORDERED: diphenhdrAMINE HCL 50 MG/1 ML VL IV ONE (09:30)
[2020-08-17] MEDS ORDERED: SODIUM CHL 0.9% 1000 ML BAG XX ONE (09:30)
[2020-08-17] MEDS: ASPirin 81 mg TAB PO SCH (09:31)
[2020-08-17] MEDS ORDERED: amLODIPine BESYLATE 5 MG TAB PO SCH (10:00)
[2020-08-17] MEDS ORDERED: PIPERACILLIN-TAZOB 2.25GM 50 ML IV SCH (12:00)
[2020-08-17] MEDS: amLODIPine BESYLATE 5 MG TAB PO SCH (12:27)
[2020-08-17] MEDS: METOPROLOL TARTRATE 25 MG TAB PO SCH ×2 (12:27→22:02)
[2020-08-17] MEDS: hydrALAZINE HCL 25 MG TAB PO SCH ×2 (13:46→22:02)
[2020-08-17] MEDS ORDERED: FLEET ENEMA(ADULT) 135 ML PR ONE (17:15)
[2020-08-17] MEDS: ENOXAPARIN SOD 80 MG/0.8ML SYRINGE SC SCH (17:36)
[2020-08-17] MEDS: hydrALAZINE HCL 20 MG/ML VL IV PRN (18:34)
[2020-08-17] MEDS: PIPERACILLIN-TAZOB 2.25GM 50 ML IV SCH (20:06)
[2020-08-17] MEDS ORDERED: EPOETIN ALFA-EPBX 10,000 UNIT/1ML VIAL SC ONE (21:00)
[2020-08-17] MEDS: ATORVASTATIN 20 MG TAB PO SCH (22:01)
[2020-08-18] VITALS (11 sets, daily range): BP systolic 127–168; BP diastolic 79–107
[2020-08-18] MEDS: HYDROcodone-ACET 10/325MG TAB PO PRN ×2 (00:06→04:29)
[2020-08-18] MEDS: HYDROmorphone HCL 2 MG/ML VL IV PRN ×5 (02:08→23:01)
[2020-08-18 04:13] LABS: BUN/Creatinine Ratio 5.3; Calcium 7.8 mg/dL (8.5-10.1); Potassium 3.9 mmol/L (3.5-5.1)
[2020-08-18] MEDS: PIPERACILLIN-TAZOB 2.25GM 50 ML IV SCH ×3 (04:29→14:00)
[2020-08-18] MEDS: hydrALAZINE HCL 25 MG TAB PO SCH ×3 (06:16→22:13)
[2020-08-18] MEDS ORDERED: GASTROGRAFIN 120 ML SOL ONE (09:15)
[2020-08-18] MEDS: amLODIPine BESYLATE 5 MG TAB PO SCH (10:00)
[2020-08-18] MEDS: ASPirin 81 mg TAB PO SCH (10:00)
[2020-08-18] MEDS: METOPROLOL TARTRATE 25 MG TAB PO SCH ×2 (10:00→22:13)
[2020-08-18] MEDS ORDERED: SEVE800T8 PO (10:58)
[2020-08-18] MEDS ORDERED: PANTOPRAZOLE 40 MG/10 ML VIAL INJ IV ONE (13:30)
[2020-08-18] MEDS: ENOXAPARIN SOD 80 MG/0.8ML SYRINGE SC SCH (17:56)
[2020-08-18] MEDS: hydrALAZINE HCL 20 MG/ML VL IV PRN (18:36)
[2020-08-18] MEDS: ONDANSETRON HCL 4 MG/2 ML VIAL IV PRN (19:41)
[2020-08-18] MEDS: ATORVASTATIN 20 MG TAB PO SCH (22:13)
[2020-08-19] MEDS: PIPERACILLIN-TAZOB 2.25GM 50 ML IV SCH ×3 (03:28→13:00)
[2020-08-19] MEDS: HYDROmorphone HCL 2 MG/ML VL IV PRN ×2 (04:26→09:15)
[2020-08-19 05:00] VITALS: BP 160/110
[2020-08-19] MEDS: hydrALAZINE HCL 25 MG TAB PO SCH ×2 (05:17→14:00)
[2020-08-19 05:21] LABS: Hemoglobin 7.2 g/dL (13.5-17.5); Mean Corpuscular Hemoglobin 22.9 pg (28.0-32.0); Mean Corpuscular Volume 67.5 fL (80.0-100.0); Platelet Count (auto) 147 10^3/uL (140-450); Red Blood Cells 3.12 10^6/uL (4.5-5.90); White Blood Cell 15.3 10^3/uL (4.4-10.8)
[2020-08-19 05:33] LABS: Red Cell Distribution Width 23.5 % (11.8-14.3)
[2020-08-19 05:35] LABS: Basophils % (manual) 0 (0.0-2.0); Blast Cells 0; Eosinophils % (manual) 0 (0-7); Metamyelocytes % 0; Myelocytes % 0; Promyelocytes % 0; Reactive Lymphocytes 0
[2020-08-19 05:38] LABS: Potassium 3.9 mmol/L (3.5-5.1)
[2020-08-19 05:43] LABS: BUN/Creatinine Ratio 5.8
[2020-08-19 07:52] LABS: Band Neutrophils % (manual) 2; Lymphocytes % (manual) 10 (10.0-50.0); Monocytes % (manual) 4 (0-12)
[2020-08-19] MEDS: ONDANSETRON HCL 4 MG/2 ML VIAL IV PRN (08:09)
[2020-08-19 08:42] VITALS: BP 149/91
[2020-08-19] MEDS: amLODIPine BESYLATE 5 MG TAB PO SCH (09:13)
[2020-08-19] MEDS: ASPirin 81 mg TAB PO SCH (09:13)
[2020-08-19] MEDS: METOPROLOL TARTRATE 25 MG TAB PO SCH (09:14)
[2020-08-19] MEDS ORDERED: SODIUM CHL 0.9% 1000 ML BAG XX ONE (09:45)
[2020-08-19] MEDS ORDERED: PANTOPRAZOLE 40 MG/10 ML VIAL INJ IV SCH (10:00)
[2020-08-19] MEDS ORDERED: METOPROLOL TARTRATE 25 MG TAB PO SCH ×2 (10:00→22:00)
[2020-08-19 12:15] VITALS: BP 149/91
[2020-08-19 12:30] VITALS: BP 150/94
[2020-08-19] MEDS: HYDROcodone-ACET 10/325MG TAB PO PRN (13:25)
[2020-08-19] MEDS ORDERED: EPOETIN ALFA-EPBX 10,000 UNIT/1ML VIAL SC ONE (21:00)
== END 2020-08-19 14:10 | disposition home health service (06) | DRG 199 ==
LOC: ER 13:53 → EDBD 13:53 → TELE 17:50 → ICU WEST 23:15 → TELE-CENTR 08-18 20:05
PROVIDERS: ADMIT Internal Medicine; ATTEND Internal Medicine
PROC: 05HA33Z Insertion of Infusion Device into Left Brachial Vein, Percutaneous Approach (ICD-10-PCS; principal; 2020-08-16)
PROC: 5A1D70Z Performance of Urinary Filtration, Intermittent, Less than 6 Hours Per Day (ICD-10-PCS; 2020-08-17)
PROC: 5A1D70Z Performance of Urinary Filtration, Intermittent, Less than 6 Hours Per Day (ICD-10-PCS; 2020-08-19)
DX: I16.1 Hypertensive emergency (principal); I50.43 Acute on chronic combined systolic (congestive) and diastolic (congestive) heart failure; N18.6 End stage renal disease; R18.8 Other ascites; K50.90 Crohn's disease, unspecified, without complications; K52.9 Noninfective gastroenteritis and colitis, unspecified; I13.2 Hypertensive heart and chronic kidney disease with heart failure and with stage 5 chronic kidney disease, or end stage renal disease; Z91.013 Allergy to seafood; Z20.822 Contact with and (suspected) exposure to COVID-19; D63.1 Anemia in chronic kidney disease; G89.29 Other chronic pain; I25.10 Atherosclerotic heart disease of native coronary artery without angina pectoris; J45.909 Unspecified asthma, uncomplicated; K59.00 Constipation, unspecified; Z80.0 Family history of malignant neoplasm of digestive organs; Z82.49 Family history of ischemic heart disease and other diseases of the circulatory system; Z83.3 Family history of diabetes mellitus; Z91.14 Patient's other noncompliance with medication regimen; Z99.2 Dependence on renal dialysis; D72.829 Elevated white blood cell count, unspecified
CPT/HCPCS: 36415; 36600; 71045; 74176; 74250; 80048; 80053; 82805; 83605; 83690; 83735; 83880; 84484; 85007; 85025; 85027; 87040; 87081; 87426; 96365; 96375; 99291; C9113; G0378; J1642; J2405; J2543

== ENCOUNTER 2020-10-07 06:41 | Inpatient (IN) | payer MEDICAID ==
[~2020-10-07] VITALS: Ht 172.7 cm; Wt 81.2 kg
[~2020-10-07 06:41] MED LIST changes: -DOXY-338 PO; -HYDR10TA26 PO; -POTA10TA51 PO; +SEVE800T8 PO
[2020-10-07] MEDS ORDERED: LABETALOL HCL 5 MG/ML 4ML SYRINGE IV ONE (07:00)
[2020-10-07] MEDS ORDERED: FUROSEMIDE 40 MG/4 ML VIAL IV ONE (07:00)
[2020-10-07 07:37] LABS: Hemoglobin 11.9 g/dL (13.5-17.5); Mean Corpuscular Hemoglobin 23.9 pg (28.0-32.0); Mean Corpuscular Volume 72.5 fL (80.0-100.0); Red Blood Cells 4.96 10^6/uL (4.5-5.90); Red Cell Distribution Width 19.8 % (11.8-14.3); White Blood Cell 11.4 10^3/uL (4.4-10.8)
[2020-10-07 07:39] LABS: Band Neutrophils % (manual) 0; Basophils % (manual) 0 (0.0-2.0); Blast Cells 0; Metamyelocytes % 0; Myelocytes % 0; Promyelocytes % 0; Reactive Lymphocytes 0
[2020-10-07 07:53] LABS: Albumin 4.1 g/dL (3.4-5.0); Calcium 9.3 mg/dL (8.5-10.1); Potassium 4.3 mmol/L (3.5-5.1)
[2020-10-07 07:57] LABS: BUN/Creatinine Ratio 2.9; Bilirubin, Total 0.6 mg/dL (0.2-1.0); Total Protein 8.1 g/dL (6.4-8.2)
[2020-10-07] MEDS ORDERED: MORPHINE SULFATE 4 MG/ML SYR/VIAL IV ONE (08:00)
[2020-10-07] MEDS ORDERED: ONDANSETRON HCL 4 MG/2 ML VIAL IV ONE ×2 (08:00→11:45)
[2020-10-07 09:06] LABS: Eosinophils % (manual) 1 (0-7); Lymphocytes % (manual) 7 (10.0-50.0); Monocytes % (manual) 7 (0-12)
[2020-10-07] MEDS ORDERED: cloNIDine HCL 0.1 MG TAB PO PRN (10:00)
[2020-10-07] MEDS ORDERED: amLODIPine BESYLATE 5 MG TAB PO SCH (10:00)
[2020-10-07] MEDS: METOPROLOL TARTRATE 25 MG TAB PO SCH ×2 (10:14→23:37)
[2020-10-07] MEDS ORDERED: SODIUM CHL 0.9% 1000 ML BAG XX ONE (10:45)
[2020-10-07] MEDS ORDERED: LORazepam 2MG/ML-1ML VIAL IV ONE (12:45)
[2020-10-07] MEDS ORDERED: HYDROmorphone HCL 2 MG/ML VL IV ONE (12:45)
[2020-10-07] MEDS ORDERED: ASPirin 81 mg TAB PO SCH (13:15)
[2020-10-07] MEDS ORDERED: NITROGLYCERIN 0.4 MG SL TAB SL PRN (13:15)
[2020-10-07] MEDS ORDERED: ACETAMINOPHEN 325 MG TAB PO PRN (13:15)
[2020-10-07] MEDS ORDERED: HYDROcodone-ACET 5/325MG TAB PO PRN (13:15)
[2020-10-07] MEDS ORDERED: ONDANSETRON HCL 4 MG/2 ML VIAL IV PRN (13:15)
[2020-10-07] MEDS ORDERED: MORPHINE SULF INJ 2 MG/ML SYRINGE 1ML IV PRN ×2 (13:15)
[2020-10-07] MEDS ORDERED: ATORVASTATIN 20 MG TAB PO SCH (22:00)
[2020-10-08] VITALS: BP 191/131
== END 2020-10-08 00:01 | disposition left against medical advice (07) | DRG 425 ==
LOC: ER 06:41 → EDBD 06:41 → TELE 13:09
PROVIDERS: ADMIT Internal Medicine; ATTEND Internal Medicine
PROC: 5A1D70Z Performance of Urinary Filtration, Intermittent, Less than 6 Hours Per Day (ICD-10-PCS; principal; 2020-10-07)
DX: E87.70 Fluid overload, unspecified (principal); J96.01 Acute respiratory failure with hypoxia; I13.2 Hypertensive heart and chronic kidney disease with heart failure and with stage 5 chronic kidney disease, or end stage renal disease; I16.0 Hypertensive urgency; J45.909 Unspecified asthma, uncomplicated; F12.90 Cannabis use, unspecified, uncomplicated; Z53.29 Procedure and treatment not carried out because of patient's decision for other reasons; I50.9 Heart failure, unspecified; Z20.822 Contact with and (suspected) exposure to COVID-19; N18.6 End stage renal disease; Z80.0 Family history of malignant neoplasm of digestive organs; Z82.49 Family history of ischemic heart disease and other diseases of the circulatory system; Z83.3 Family history of diabetes mellitus; Z91.15 Patient's noncompliance with renal dialysis; Z91.19 Patient's noncompliance with other medical treatment and regimen; Z99.2 Dependence on renal dialysis; Z91.013 Allergy to seafood
CPT/HCPCS: 36415; 71045; 80053; 83880; 84484; 85007; 85027; 87426; 90935; 93005; 96374; 96375; 96376; 99291; G0378; J1642; J2405; J3490

== ENCOUNTER 2020-12-14 19:00 | Emergency (ER) | payer MEDICAID ==
[~2020-12-14] VITALS: Ht 172.7 cm; Wt 81.6 kg
[2020-12-14] MEDS ORDERED: ACETAMINOPHEN 325 MG TAB PO ONE (20:00)
[2020-12-14] MEDS ORDERED: HEPARIN DRIP/D5W 100UNITS/ML 250 ML IV SCH (20:15)
[2020-12-14] MEDS ORDERED: HEPARIN SODIUM (PORCINE) 5000 UNITS/ML 1ML VIAL IV ONE (21:00)
[2020-12-14 21:08] LABS: Basophils # (auto) 0.1 10 ^3/uL (0-0.2); Basophils % (auto) 0.8 % (0.0-2.0); Eosinophils # (auto) 0.1 10 ^3/uL (0-0.8); Eosinophils % (auto) 1.8 % (0.0-7.0); Hematocrit 33.6 % (41.0-53.0); Hemoglobin 10.7 g/dL (13.5-17.5); Lymphocytes # (auto) 1.3 10 ^3/uL (0.4-5.4); Lymphocytes % (auto) 20.2 % (10.0-50.0); Mean Corpuscular Hemoglobin 22.3 pg (28.0-32.0); Mean Corpuscular Volume 69.8 fL (80.0-100.0); Monocytes % (auto) 15.8 % (0.0-12.0); Neutrophils % (auto) 61.4 % (37.0-80.0); Red Blood Cells 4.82 10^6/uL (4.5-5.90); White Blood Cell 6.4 10^3/uL (4.4-10.8)
[2020-12-14 21:11] LABS: Albumin 3.2 g/dL (3.4-5.0); Calcium 8.6 mg/dL (8.5-10.1); Magnesium 2.8 mg/dL (1.6-2.6); Potassium 3.4 mmol/L (3.5-5.1)
[2020-12-14 21:15] LABS: Red Cell Distribution Width 21.6 % (11.8-14.3)
[2020-12-14 21:19] LABS: BUN/Creatinine Ratio 2.9; Bilirubin, Total 0.4 mg/dL (0.2-1.0); Total Protein 7.1 g/dL (6.4-8.2)
[2020-12-14 21:24] LABS: Partial Thromboplastin Time 25.3 sec (23.6-33.0)
[2020-12-14 21:45] VITALS: BP 161/93
[2020-12-14] MEDS ORDERED: KETOROLAC TROMETH 30 MG/ML 1ML VIAL IV ONE (22:15)
[2020-12-14] MEDS ORDERED: OMEPRAZOLE 20MG/10ML ORAL SUSP PO ONE (22:15)
[2020-12-15] MEDS ORDERED: ACETAMINOPHEN 325 MG TAB PO ONE (00:45)
[2020-12-15] MEDS ORDERED: LABETALOL HCL 200 MG TAB PO ONE (01:00)
[2020-12-15] MEDS ORDERED: diphenhdrAMINE HCL 25 MG CAP PO ONE (01:30)
== END 2020-12-15 02:30 | disposition left against medical advice (07) ==
LOC: EDBD 19:00 → EDUNIT# 19:00 → ER 19:03
DX: I16.0 Hypertensive urgency (principal); R07.89 Other chest pain; I12.0 Hypertensive chronic kidney disease with stage 5 chronic kidney disease or end stage renal disease; N18.6 End stage renal disease; J45.909 Unspecified asthma, uncomplicated; I25.10 Atherosclerotic heart disease of native coronary artery without angina pectoris; Z99.2 Dependence on renal dialysis; Z86.73 Personal history of transient ischemic attack (TIA), and cerebral infarction without residual deficits; Z79.899 Other long term (current) drug therapy; Z91.013 Allergy to seafood; Z20.822 Contact with and (suspected) exposure to COVID-19
CPT/HCPCS: 36415; 71045; 80053; 83735; 83880; 84443; 84484; 85025; 85379; 85610; 85730; 87426; 93005; 96365; 96366; 96368; 96376; 99285; J1644; J1885

== ENCOUNTER 2021-02-09 07:59 | Emergency (ER) | payer MEDICAID ==
[~2021-02-09] VITALS: Ht 172.7 cm; Wt 72.6 kg
[2021-02-09 08:45] LABS: Basophils # (auto) 0.1 10 ^3/uL (0-0.2); Eosinophils # (auto) 0.2 10 ^3/uL (0-0.8); Hematocrit 19.8 % (41.0-53.0); Lymphocytes # (auto) 1.1 10 ^3/uL (0.4-5.4); Mean Corpuscular Hemoglobin 22.6 pg (28.0-32.0); Mean Corpuscular Hgb Conc. 32.2 g/dL (32.0-36.0); Monocytes # (auto) 0.8 10 ^3/uL (0-1.3)
[2021-02-09 08:47] LABS: Basophils % (auto) 1.4 % (0.0-2.0); Eosinophils % (auto) 2.6 % (0.0-7.0); Lymphocytes % (auto) 12.2 % (10.0-50.0); Mean Corpuscular Volume 70.3 fL (80.0-100.0); Monocytes % (auto) 8.6 % (0.0-12.0); Neutrophils # (auto) 6.6 10 ^3/uL (1.6-8.6); Neutrophils % (auto) 75.2 % (37.0-80.0); Nucleated Red Blood Cells % 0.2 %; Red Blood Cells 2.81 10^6/uL (4.5-5.90); White Blood Cell 8.8 10^3/uL (4.4-10.8)
[2021-02-09 08:58] LABS: Red Cell Distribution Width 20.7 % (11.8-14.3)
[2021-02-09 09:00] LABS: Hemoglobin 6.4 g/dL (13.5-17.5)
[2021-02-09 09:01] LABS: Calcium 8.9 mg/dL (8.5-10.1); Potassium 4.3 mmol/L (3.5-5.1)
[2021-02-09 09:10] LABS: BUN/Creatinine Ratio 2.7; Bilirubin, Total 0.5 mg/dL (0.2-1.0); Total Protein 7.4 g/dL (6.4-8.2)
[2021-02-09 09:36] LABS: INR 1.12 (0.9-1.15)
[2021-02-09] MEDS ORDERED: ONDANSETRON HCL 4 MG/2 ML VIAL IV ONE (09:45)
[2021-02-09] MEDS ORDERED: HYDROmorphone HCL 2 MG/ML VL IV ONE ×2 (09:45→12:30)
[2021-02-09 14:25] VITALS: BP 183/118
[2021-02-09 14:40] VITALS: BP 201/126
[2021-02-09 14:55] VITALS: BP 198/130
[2021-02-09] MEDS ORDERED: amLODIPine BESYLATE 5 MG TAB PO ONE (15:00)
[2021-02-09 15:30] VITALS: BP 166/128
[2021-02-09 16:53] VITALS: BP 197/125
[2021-02-09 16:55] VITALS: BP 197/125
== END 2021-02-09 16:52 | disposition home or self-care (01) ==
LOC: ER 07:59
DX: D64.9 Anemia, unspecified (principal); I12.0 Hypertensive chronic kidney disease with stage 5 chronic kidney disease or end stage renal disease; N18.6 End stage renal disease; Z99.2 Dependence on renal dialysis; Z20.822 Contact with and (suspected) exposure to COVID-19
CPT/HCPCS: 36415; 36430; 71045; 80053; 84484; 85025; 85610; 86850; 86900; 86901; 86920; 87426; 93005; 96374; 96375; 96376; 99285; J1170; J2405; P9016

== ENCOUNTER 2021-04-24 09:16 | Inpatient (IN) | payer MEDICARE, MEDICAID ==
[~2021-04-24] VITALS: Ht 172.7 cm; Wt 77.7 kg
[2021-04-24] MEDS ORDERED: amLODIPine BESYLATE 5 MG TAB PO ONE (13:30)
[2021-04-24] MEDS ORDERED: FUROSEMIDE 40 MG/4 ML VIAL IV ONE (15:15)
[2021-04-24 17:01] LABS: Basophils # (auto) 0.1 10 ^3/uL (0-0.2); Eosinophils # (auto) 0.1 10 ^3/uL (0-0.8); Mean Corpuscular Volume 74.1 fL (80.0-100.0); Monocytes # (auto) 0.7 10 ^3/uL (0-1.3); Monocytes % (auto) 13.9 % (0.0-12.0); Neutrophils # (auto) 3.1 10 ^3/uL (1.6-8.6)
[2021-04-24 17:03] LABS: Basophils % (auto) 1.5 % (0.0-2.0); Hematocrit 20.4 % (41.0-53.0); Lymphocytes % (auto) 20.4 % (10.0-50.0); Mean Corpuscular Hemoglobin 23.9 pg (28.0-32.0); Mean Corpuscular Hgb Conc. 32.2 g/dL (32.0-36.0); Neutrophils % (auto) 62.2 % (37.0-80.0); Nucleated Red Blood Cells % 0.1 %; Red Blood Cells 2.76 10^6/uL (4.5-5.90); Red Cell Distribution Width 18.3 % (11.8-14.3)
[2021-04-24 17:13] LABS: Hemoglobin 6.6 g/dL (13.5-17.5)
[2021-04-24 17:21] LABS: Albumin 3.1 g/dL (3.4-5.0); Calcium 7.9 mg/dL (8.5-10.1); Potassium 3.5 mmol/L (3.5-5.1)
[2021-04-24 17:26] LABS: BUN/Creatinine Ratio 3.2; Bilirubin, Total 0.3 mg/dL (0.2-1.0); Total Protein 6.2 g/dL (6.4-8.2)
[2021-04-24] MEDS ORDERED: FERROUS SULFATE 325mg EC TAB PO ONE (17:30)
[2021-04-24] MEDS ORDERED: IOHEXOL 350 MG/ML 100ML IJ ONE (17:32)
[2021-04-24] MEDS ORDERED: NITROGLYCERIN 0.4 MG SL TAB SL PRN (17:45)
[2021-04-24] MEDS ORDERED: MORPHINE SULFATE INJECTION 2 MG/ML SYRG IV PRN (17:45)
[2021-04-24] MEDS ORDERED: B-COMPLEX W/ C & FOLIC ACID(NEPHROVITE TAB) PO ONE (19:15)
[2021-04-24] MEDS ORDERED: ONDANSETRON HCL 4 MG/2 ML VIAL IV PRN (19:15)
[2021-04-24] MEDS ORDERED: IPRATROPIUM BROM 0.5 MG/2.5ML INH SOL NEB ONE (19:15)
[2021-04-24] MEDS ORDERED: LABETALOL HCL 5 MG/ML 4ML SYRINGE IV PRN (19:15)
[2021-04-24] MEDS ORDERED: HYDROcodone-ACET 5/325MG TAB PO ONE (19:15)
[2021-04-24] MEDS ORDERED: LACTULOSE 20Gm/30ML SOLN PO PRN (19:15)
[2021-04-24] MEDS ORDERED: DOCUSATE SOD 100 MG CAP PO PRN (19:15)
[2021-04-24] MEDS ORDERED: HYDROcodone-ACET 5/325MG TAB PO PRN (19:15)
[2021-04-24] MEDS ORDERED: LORazepam 0.5 MG TAB PO PRN (19:15)
[2021-04-24 20:09] LABS: Magnesium 1.9 mg/dL (1.6-2.6); Phosphorus 5.6 mg/dL (2.5-4.90)
[2021-04-24] MEDS: hydrALAZINE HCL 20 MG/ML VL IV PRN (21:23)
[2021-04-24 22:00] VITALS: BP 160/100
[2021-04-24] MEDS ORDERED: IPRATROPIUM BROM 0.5 MG/2.5ML INH SOL NEB SCH (22:00)
[2021-04-24 23:00] VITALS: BP 160/100
[2021-04-24] MEDS: PANTOPRAZOLE 40 MG/10 ML VIAL INJ IV SCH (23:18)
[2021-04-24] MEDS: ATORVASTATIN 20 MG TAB PO SCH (23:19)
[2021-04-24] MEDS: MORPHINE SULFATE INJECTION 2 MG/ML SYRG IV PRN (23:38)
[2021-04-25] VITALS (10 sets, daily range): BP systolic 150–187; BP diastolic 92–119
[2021-04-25] MEDS: LABETALOL HCL 5 MG/ML ML 20ML VIAL IV PRN ×4 (00:14→22:24)
[2021-04-25 02:25] LABS: INR 1.1 (0.9-1.15); Partial Thromboplastin Time 27.5 sec (23.6-33.0)
[2021-04-25] MEDS: hydrALAZINE HCL 20 MG/ML VL IV PRN ×2 (05:05→20:06)
[2021-04-25] MEDS: HYDROcodone-ACET 5/325MG TAB PO PRN ×2 (05:28→14:08)
[2021-04-25] MEDS ORDERED: FUROSEMIDE 20 MG/2 ML VIAL IV SCH (06:00)
[2021-04-25 06:46] LABS: Albumin 3.1 g/dL (3.4-5.0); Basophils # (auto) 0.1 10 ^3/uL (0-0.2); Eosinophils # (auto) 0.2 10 ^3/uL (0-0.8); Lymphocytes # (auto) 1.1 10 ^3/uL (0.4-5.4); Monocytes # (auto) 0.6 10 ^3/uL (0-1.3); Potassium 3.7 mmol/L (3.5-5.1); White Blood Cell 5.7 10^3/uL (4.4-10.8)
[2021-04-25 06:49] LABS: Basophils % (auto) 1.1 % (0.0-2.0); Eosinophils % (auto) 2.7 % (0.0-7.0); Hematocrit 20.2 % (41.0-53.0); Lymphocytes % (auto) 20.1 % (10.0-50.0); Mean Corpuscular Hemoglobin 24.2 pg (28.0-32.0); Mean Corpuscular Hgb Conc. 32.6 g/dL (32.0-36.0); Neutrophils # (auto) 3.7 10 ^3/uL (1.6-8.6); Neutrophils % (auto) 65.1 % (37.0-80.0); Red Blood Cells 2.73 10^6/uL (4.5-5.90)
[2021-04-25 06:55] LABS: % Iron Saturation 15.3 % (20-55)
[2021-04-25 07:16] LABS: BUN/Creatinine Ratio 3.3; Bilirubin, Total 0.3 mg/dL (0.2-1.0); CRP High Sensitivity 0.17 mg/dL (< 0.3); Calcium 8.1 mg/dL (8.5-10.1); Magnesium 1.8 mg/dL (1.6-2.6); Phosphorus 6.4 mg/dL (2.5-4.90); Total Protein 6.1 g/dL (6.4-8.2); Uric Acid 6.6 mg/dL (3.5-7.2)
[2021-04-25 07:56] LABS: Hemoglobin 6.6 g/dL (13.5-17.5); Mean Corpuscular Volume 74.2 fL (80.0-100.0); Red Cell Distribution Width 18.4 % (11.8-14.3)
[2021-04-25 08:27] LABS: INR 1.07 (0.9-1.15); Partial Thromboplastin Time 27.9 sec (23.6-33.0)
[2021-04-25] MEDS: SEVELAMER 800 MG TAB PO SCH ×3 (08:29→17:31)
[2021-04-25] MEDS: cefTRIAXone 1GM/50ML D5W 50 ML IV SCH (08:39)
[2021-04-25] MEDS: MORPHINE SULFATE INJECTION 2 MG/ML SYRG IV PRN ×2 (08:41→20:07)
[2021-04-25] MEDS ORDERED: hydrALAZINE HCL 25 MG TAB PO SCH (10:00)
[2021-04-25] MEDS: PANTOPRAZOLE 40 MG/10 ML VIAL INJ IV SCH ×2 (10:18→21:53)
[2021-04-25] MEDS: B-COMPLEX W/ C & FOLIC ACID(NEPHROVITE TAB) PO SCH (10:19)
[2021-04-25] MEDS: LABETALOL HCL 200 MG TAB PO SCH ×2 (10:20→22:00)
[2021-04-25] MEDS: hydrALAZINE HCL 25 MG TAB PO SCH ×3 (12:56→22:00)
[2021-04-25] MEDS ORDERED: diphenhdrAMINE HCL 25 MG CAP PO PRN (15:45)
[2021-04-25] MEDS: SUCRALFATE 1 GM TAB PO SCH ×2 (17:31→22:00)
[2021-04-25] MEDS: ATORVASTATIN 20 MG TAB PO SCH (22:00)
[2021-04-25] MEDS: IPRATROPIUM BROM 0.5 MG/2.5ML INH SOL NEB PRN (22:20)
[2021-04-25 23:04] LABS: Hemoglobin 7.7 g/dL (13.5-17.5)
[2021-04-25 23:07] LABS: Hematocrit 24.5 % (41.0-53.0)
[2021-04-26] MEDS: LABETALOL HCL 5 MG/ML ML 20ML VIAL IV PRN ×3 (00:44→06:11)
[2021-04-26] MEDS: MORPHINE SULFATE INJECTION 2 MG/ML SYRG IV PRN ×3 (02:58→20:28)
[2021-04-26] MEDS ORDERED: LABETALOL HCL 5 MG/ML ML 20ML VIAL IV ONE (05:48)
[2021-04-26] MEDS: IPRATROPIUM BROM 0.5 MG/2.5ML INH SOL NEB PRN ×3 (05:59→18:07)
[2021-04-26] MEDS: hydrALAZINE HCL 25 MG TAB PO SCH ×3 (06:00→20:17)
[2021-04-26] MEDS ORDERED: SODIUM CHL 0.9% 1000 ML BAG XX ONE (07:00)
[2021-04-26] MEDS: SUCRALFATE 1 GM TAB PO SCH ×4 (07:00→21:09)
[2021-04-26] MEDS: SEVELAMER 800 MG TAB PO SCH ×3 (08:00→17:43)
[2021-04-26] MEDS ORDERED: LIDOCAINE VISCOUS 2% 15ML UD ONE (08:43)
[2021-04-26] MEDS ORDERED: MIDAZOLAM HCL 5 MG/ML-1ML VIAL ONE (08:44)
[2021-04-26] MEDS ORDERED: diphenhdrAMINE HCL 50 MG/1 ML VL ONE (08:44)
[2021-04-26] MEDS ORDERED: fentaNYL CITRATE 100 MCG/2 ML VL ONE (08:44)
[2021-04-26] MEDS ORDERED: SODIUM CHLORIDE LOCK 10 ML ONE (08:45)
[2021-04-26 09:00] VITALS: BP 182/106
[2021-04-26] MEDS ORDERED: NIFE90TA49 PO (09:39)
[2021-04-26] MEDS ORDERED: PANT40T PO (09:39)
[2021-04-26] MEDS ORDERED: SUCR1TAB22 OR (09:39)
[2021-04-26] MEDS ORDERED: FERR-7 PO (09:39)
[2021-04-26] MEDS ORDERED: NIFEdipine ER 30 MG TAB PO SCH (10:00)
[2021-04-26] MEDS: cefTRIAXone 1GM/50ML D5W 50 ML IV SCH (10:20)
[2021-04-26] MEDS: PANTOPRAZOLE 40 MG/10 ML VIAL INJ IV SCH ×2 (10:21→21:10)
[2021-04-26] MEDS: B-COMPLEX W/ C & FOLIC ACID(NEPHROVITE TAB) PO SCH (10:21)
[2021-04-26] MEDS: LABETALOL HCL 200 MG TAB PO SCH ×2 (10:23→21:12)
[2021-04-26 13:00] VITALS: BP 209/120
[2021-04-26 17:00] VITALS: BP 169/103
[2021-04-26] MEDS: hydrALAZINE HCL 20 MG/ML VL IV PRN (17:44)
[2021-04-26] MEDS: HYDROcodone-ACET 5/325MG TAB PO PRN (17:44)
[2021-04-26] MEDS: ATORVASTATIN 20 MG TAB PO SCH (21:10)
[2021-04-26 22:00] VITALS: BP 175/102
[2021-04-27] MEDS: HYDROcodone-ACET 5/325MG TAB PO PRN (01:02)
[2021-04-27] MEDS: hydrALAZINE HCL 25 MG TAB PO SCH (03:56)
[2021-04-27] MEDS: MORPHINE SULFATE INJECTION 2 MG/ML SYRG IV PRN (04:04)
[2021-04-27 05:00] VITALS: BP 150/85
[2021-04-27] MEDS: SUCRALFATE 1 GM TAB PO SCH (07:11)
[2021-04-27 08:39] VITALS: BP 175/103
== END 2021-04-27 10:33 | disposition left against medical advice (07) | DRG 291 ==
LOC: ER 09:24 → TELE 17:35 → TELE-CENTR 22:30
PROVIDERS: ADMIT Hospitalist; ATTEND Family Medicine
PROC: 05H933Z Insertion of Infusion Device into Right Brachial Vein, Percutaneous Approach (ICD-10-PCS; 2021-04-24)
PROC: B54MZZA Ultrasonography of Right Upper Extremity Veins, Guidance (ICD-10-PCS; 2021-04-24)
PROC: 30233N1 Transfusion of Nonautologous Red Blood Cells into Peripheral Vein, Percutaneous Approach (ICD-10-PCS; principal; 2021-04-25)
PROC: 5A1D70Z Performance of Urinary Filtration, Intermittent, Less than 6 Hours Per Day (ICD-10-PCS; 2021-04-26)
DX: I13.2 Hypertensive heart and chronic kidney disease with heart failure and with stage 5 chronic kidney disease, or end stage renal disease (principal); N18.6 End stage renal disease; I50.43 Acute on chronic combined systolic (congestive) and diastolic (congestive) heart failure; K92.2 Gastrointestinal hemorrhage, unspecified; I16.1 Hypertensive emergency; N39.0 Urinary tract infection, site not specified; D63.8 Anemia in other chronic diseases classified elsewhere; E11.22 Type 2 diabetes mellitus with diabetic chronic kidney disease; Z99.2 Dependence on renal dialysis; I25.5 Ischemic cardiomyopathy; J44.9 Chronic obstructive pulmonary disease, unspecified; Z98.61 Coronary angioplasty status; F12.90 Cannabis use, unspecified, uncomplicated; F17.200 Nicotine dependence, unspecified, uncomplicated; E78.5 Hyperlipidemia, unspecified; Z20.822 Contact with and (suspected) exposure to COVID-19; Z53.29 Procedure and treatment not carried out because of patient's decision for other reasons; Z79.899 Other long term (current) drug therapy; Z82.49 Family history of ischemic heart disease and other diseases of the circulatory system; Z83.3 Family history of diabetes mellitus; Z85.038 Personal history of other malignant neoplasm of large intestine; Z86.73 Personal history of transient ischemic attack (TIA), and cerebral infarction without residual deficits; Z80.0 Family history of malignant neoplasm of digestive organs; Z91.013 Allergy to seafood
CPT/HCPCS: 36415; 36600; 71045; 80053; 80061; 82805; 83036; 83540; 83550; 83615; 83735; 83880; 83970; 84100; 84484; 84550; 85014; 85018; 85025; 85379; 85610; 85652; 85730; 86141; 86850; 86900; 86901; 86920; 87040; 87081; 87426; 90935; 93005; 93970; 94640; 96374; C9113; G0378; J0696; J1642; J2250; J2405

== ENCOUNTER 2022-02-26 08:36 | Emergency (ER) | payer MEDICARE, MEDICAID ==
[~2022-02-26] VITALS: Ht 172.7 cm; Wt 74.5 kg
[~2022-02-26 08:36] MED LIST changes: +FERR-7 PO; +NIFE90TA49 PO; +PANT40T PO; +SUCR1TAB22 OR
[2022-02-26 12:07] LABS: Basophils # (auto) 0.1 10 ^3/uL (0-0.2); Eosinophils # (auto) 0.2 10 ^3/uL (0-0.8); Eosinophils % (auto) 1.8 % (0.0-7.0); Hemoglobin 9.4 g/dL (13.5-17.5); Monocytes # (auto) 0.8 10 ^3/uL (0-1.3); Nucleated Red Blood Cells % 0.2 %
[2022-02-26 12:09] LABS: Basophils % (auto) 0.6 % (0.0-2.0); Hematocrit 29.9 % (41.0-53.0); Lymphocytes # (auto) 1.3 10 ^3/uL (0.4-5.4); Lymphocytes % (auto) 14.1 % (10.0-50.0); Mean Corpuscular Hemoglobin 24.3 pg (28.0-32.0); Mean Corpuscular Hgb Conc. 31.4 g/dL (32.0-36.0); Mean Corpuscular Volume 77.3 fL (80.0-100.0); Monocytes % (auto) 8.1 % (0.0-12.0); Neutrophils % (auto) 75.4 % (37.0-80.0); Red Blood Cells 3.87 10^6/uL (4.5-5.90); White Blood Cell 9.3 10^3/uL (4.4-10.8)
[2022-02-26 12:22] LABS: Red Cell Distribution Width 20.2 % (11.8-14.3)
[2022-02-26 12:25] LABS: Albumin 3.8 g/dL (3.4-5.0); BUN/Creatinine Ratio 3.3; Calcium 8.5 mg/dL (8.5-10.1); Potassium 4.2 mmol/L (3.5-5.1)
[2022-02-26 12:28] LABS: Bilirubin, Total 0.4 mg/dL (0.2-1.0); Total Protein 7.2 g/dL (6.4-8.2)
[2022-02-26 13:40] LABS: INR 1.08 (0.9-1.15); Partial Thromboplastin Time 25.4 sec (24.6-33.4)
[2022-02-26 14:45] VITALS: BP 162/99
== END 2022-02-26 16:16 | disposition home or self-care (01) ==
LOC: ER 08:36
DX: I13.2 Hypertensive heart and chronic kidney disease with heart failure and with stage 5 chronic kidney disease, or end stage renal disease (principal); I50.9 Heart failure, unspecified; N18.6 End stage renal disease; D63.1 Anemia in chronic kidney disease; D64.89 Other specified anemias; J45.909 Unspecified asthma, uncomplicated; F12.90 Cannabis use, unspecified, uncomplicated; Z98.890 Other specified postprocedural states; Z91.013 Allergy to seafood; Z79.899 Other long term (current) drug therapy; Z86.73 Personal history of transient ischemic attack (TIA), and cerebral infarction without residual deficits; Z99.2 Dependence on renal dialysis
CPT/HCPCS: 36415; 80053; 85025; 85610; 85730; 86850; 86900; 86901

== ENCOUNTER 2024-03-21 10:15 | Inpatient (IN) | payer MEDICARE, MEDICAID ==
[2024-03-21] VITALS (7 sets, daily range): BP systolic 162–163; BP diastolic 96–141; PULSE 90–110; RESP 18–20; TEMP 97.4; O2SAT 96–100
[~2024-03-21] VITALS: Ht 172.7 cm; Wt 82.2 kg
[~2024-03-21 10:15] MED LIST changes: -AMLO-489 PO; +AMLO1TAB22 PO; -CAR125T PO; +CARV-216 PO; -NIFE90TA49 PO; +NIFE90TA75 PO; -SUCR1TAB22 OR; +SUCR1TAB31 OR
[2024-03-21] MEDS: hydrALAZINE HCL 20 MG/ML VL IV ONE (10:30)
[2024-03-21] MEDS: PANTOPRAZOLE 40 MG in SODIUM CHL 0.9% 100 ML IV ONE (10:30)
--- NOTE | 2024-03-21 10:34 | ED.PDOC ---
History of Present Illness HPI Comments 44 y/o M, with a Hx of anemia, asthma, CHF, COPD, ESRD w/HD T//SAT, HTN, epileptic seizures, TIA, and alcohol and marijuana use, is BIBA for c/o abdominal pain, nausea, vomiting, diarrhea, and blood-streaked stools, today. Per EMS report, patient endorses on having symptoms that have been progressively worsening since unprovoked onset that began, initially, with diarrhea, 3x days ago. Patient reported on pain being diffused and non-radiating and having to use the toilet, frequently, and noticing the blood in his stools being "bright red" in appearance. He was also noted by EMS to have been hypertensive on scene, with a blood pressure of 204/140, that the patient, himself, along with family endorses on being his usual blood pressure range. Patient also reported to have missed his 10AM Saturday HD appointment, today, due to aforementioned symptoms bothering him. He reports no additional relevant or pertinent Hx, such as sick contact, spoiled food intake, or recent substance use. Patient denies having any hematemesis, constipation, urinary symptoms, fever, chills, or other associated symptoms or modifiers at this time. Time Seen by MD: 10:20 Primary Care Provider: JASWANT Reviewed Notes: Nurses Notes, [employer] Resource Teacher Notes, Medications, Allergies Allergies: Coded Allergies: Shellfish Allergy (Verified Allergy, Unknown, 07/20/20) Home Meds Active Scripts Pantoprazole Sodium Sesquihydr (Pantoprazole Sodium) 40 Mg Tab, 40 MG PO DAILY, #30 TAB Prov:NANO COELHO MD 04/26/21 Sucralfate (CARAFATE) 1 Gm Tab, 1 GM OR QID for 14 Days, #56 TAB Prov:NANO COELHO MD 04/26/21 Ferrous Sulfate (Iron) 325 Mg Tab, 325 MG PO BID, #180 TAB Prov:NANO COELHO MD 04/26/21 Nifedipine (Nifedipine Er) 90 Mg Tab, 1 TAB PO DAILY, #90 TAB 1 Refill Prov:NANO COELHO MD 04/26/21 Naloxegol Oxalate (Movantik) 12.5 Mg Tab, 12.5 MG PO DAILY, #14 TAB Prov:YOLY GARCIA MD 07/21/20 Carvedilol (COREG) 12.5 Mg Tab, 12.5 MG PO BID, #60 TAB Prov:YOLY GARCIA MD 07/21/20 Albuterol Sulfate (VENTOLIN MDI) 90 Mcg Ih, 90 MCG IN Q6HPRN PRN, #1 INHALER Prov:YOLY GARCIA MD 07/21/20 Amlodipine Besylate (Amlodipine Besylate) 5 Mg Tab, 10 MG PO DAILY for 30 Days, #30 TAB Prov:YOLY GARCIA MD 07/21/20 Reported Medications Sevelamer Carbonate (Renvela) 800 Mg Tab, 2 TAB PO TID, #540 TAB 3 Refills 08/18/20 Albuterol Sulfate (Albuterol) 4 Mg Tab, IN, INHALER 07/20/20 Polyethylene Glycol (MIRALAX 17GM PWD) 17 Gm Pw, 17 GRAMS PO DAILY, #527 GRAMS 07/20/20 Omeprazole (Gnp Omeprazole) 20 Mg Tab, 40 MG PO, TAB 07/20/20 Clonidine Hydrochloride (Clonidine Hcl) 0.1 Mg Tab, 0.1 MG PO BID for 30 Days, MG 07/20/20 Hydrocodone-Acetaminophen (Hydrocodone/Acetaminophen 5-325 mg) 1 Tab Tab, 1 TAB PO Q8HPRN, TAB 07/20/20 Information Source: Patient, Emergency Med Personnel Mode of Arrival: EMS Severity: Moderate Timing: Days Duration: Since onset Prehospital treatment: 12 Lead EKG, Dough [place] Past Medical History PAST MEDICAL HISTORY: Anemia, Asthma, CHF, COPD, ESRD (w/HD T//SAT), HTN, Seizures (epilepsy ), TIA Surgical History (Other): gary catheter Family History Family History: Reviewed,noncontributory to illness, Family hx of HTN Social History Smoker: Non-Smoker Alcohol: Rarely Drugs: Marijuana Lives In: Home Gastrointestinal: reports: abdominal pain, blood streaked bowels, diarrhea, nausea, vomiting All Other Systems: Reviewed and Negative (negative unless otherwise stated above or in HPI) Physical Exam General Appearance: No Apparent Distress, Normal HEENT: Normal ENT Inspection, Pharynx Normal, TMs Normal Neck: Full Range of Motion, Non-Tender, Normal, Normal Inspection Respiratory: Chest Non-Tender, Lungs Clear, No Accessory Muscle Use, No Respiratory Distress, Normal Breath Sounds Cardiovascular: No Edema, No JVD, No Murmur, No Gallop, Normal Peripheral Pulses, Regular Rate/Rhythm Breast Exam: Deferred Gastrointestinal: Diffuse (tenderness to palpation ), No Organomegaly, No Pulsatile Mass, Normal Bowel Sounds, Soft, Tenderness (diffused abdomen ) Genitalia: Deferred Pelvic: Deferred Rectal: Deferred Extremities: No calf tenderness, Normal capillary refill, Normal inspection, Normal range of motion, Non-tender, No pedal edema Musculoskeletal : Apperance: Normal Neurologic: Alert, geriatric social worker II-XII nml as Tested, No Motor Deficits, Normal Affect, Normal Mood, No Sensory Deficits Cerebellar Function: Normal Reflexes: Normal Skin: Dry, Normal Color, Warm Lymphatic: No Adenopathy Was a procedure done? Was a procedure done?: No EKG EKG : Pulse Rate (adult): 100 Lester: Normal Cardiac Rhythm: NSR Block: None Hypertrophy: LVH ST: Normal Differential Dx Considerations may include: gastritis, gastroenteritis, GERD, lower GI bleed, hemorrhoids, dehydration, electrolyte imbalance, acute abdomen X-Ray, Labs, Meds, VS Vital Signs Date Time Temp Pulse Resp B/P (MAP) Pulse Ox O2 Delivery O2 Flow Rate FiO2 03/21/24 12:59 86 160/99 (119) 100 03/21/24 12:39 88 14 171/93 (119) 100 03/21/24 12:25 110 14 213/130 03/21/24 12:00 103 20 98 Room Air* 0 21 03/21/24 12:00 103 16 217/136 (163) 97 03/21/24 11:34 116 19 189/134 03/21/24 10:41 98.7 10 18 184/161 (169) 100 98.7 03/21/24 10:41 119 17 100 Room Air 03/21/24 10:40 Room Air* 0 21 03/21/24 10:33 100 03/21/24 10:30 189/134 03/21/24 10:26 98.0 108 18 204/140 (161) 100 03/21/24 10:26 100 Lab Test 03/21/24 13:55 03/21/24 10:50 Range/Units Troponin I High Sensitivity 405 *H 438 *H </=54 ng/L White Blood Count 16.0 H 4.4-10.8 10^3/uL Red Blood Count 5.18 4.5-5.90 10^6/uL Hemoglobin 12.0 L 13.5-17.5 g/dL Hematocrit 36.8 L 41.0-53.0 % Mean Corpuscular Volume 71.0 L 80.0-100.0 fL Mean Corpuscular Hemoglobin 23.1 L 28.0-32.0 pg Mean Corpuscular Hemoglobin Concent 32.6 32.0-36.0 g/dL Red Cell Distribution Width 16.9 H 11.8-14.3 % Platelet Count 201 140-450 10^3/uL Mean Platelet Volume 9.3 6.9-10.8 fL Neutrophils (%) (Auto) 84.5 H 37.0-80.0 % Lymphocytes (%) (Auto) 8.2 L 10.0-50.0 % Monocytes (%) (Auto) 7.1 0.0-12.0 % Eosinophils (%) (Auto) 0.0 0.0-7.0 % Basophils (%) (Auto) 0.2 0.0-2.0 % Neutrophils # (Auto) 13.5 H 1.6-8.6 10 ^3/uL Lymphocytes # (Auto) 1.3 0.4-5.4 10 ^3/uL Monocytes # (Auto) 1.1 0-1.3 10 ^3/uL Eosinophils # (Auto) 0 0-0.8 10 ^3/uL Basophils # (Auto) 0 0-0.2 10 ^3/uL Nucleated Red Blood Cells 0.4 % Platelet Estimate [place] Large Platelets Few Hypochromasia (manual) Slight Anisocytosis (manual) Slight Microcytosis Slight Prothrombin Time 11.9 H 9.3-11.8 sec Prothrombin Time INR 1.13 0.9-1.15 Activated Partial Thromboplast Time 26.5 24.5-34.5 SEC Sodium Level 138 136-145 mmol/L Potassium Level 3.8 3.5-5.1 mmol/L Chloride Level 93 L 98-107 mmol/L Carbon Dioxide Level 19 L 20-31 mmol/L Anion Gap 26 H 5-15 Blood Urea Nitrogen 78 H 9-23 mg/dL Creatinine 14.78 *H 0.700-1.30 mg/dL Glomerular Filtration Rate Calc 4 >90 mL/min BUN/Creatinine Ratio 5.3 L 10.0-20.0 Serum Glucose 110 H 74-106 mg/dL Calcium Level 9.3 8.7-10.4 mg/dL Total Bilirubin 0.4 0.2-1.0 mg/dL Aspartate Amino Transferase (AST) 36 13-40 U/L Alanine Aminotransferase (ALT) 16 7-40 U/L Alkaline Phosphatase 186 H 46-116 U/L Total Protein 9.9 H 5.7-8.2 g/dL Albumin 6.0 H 3.2-4.8 g/dL Lipase 41 12-53 U/L Current Medications Medications (Trade) Dose Ordered Sig/Ramila Route Start Time Stop Time Status Last Admin Metoclopramide HCl (Reglan Injection) 10 mg ONCE ONCE IV 03/21/24 10:30 03/21/24 10:31 DC 03/21/24 11:34 Hydromorphone HCl (Dilaudid Injection) 1 mg ONCE ONCE IV 03/21/24 10:30 03/21/24 10:31 DC 03/21/24 11:34 Hydromorphone HCl (Dilaudid Injection) 1 mg ONCE ONCE IM 03/21/24 12:30 03/21/24 12:31 DC 03/21/24 12:25 [place] [id number] Ph: [phone] DIAGNOSTIC IMAGING Diagnostic Imaging Report : [id number] Signed PATIENT: LORI TELLO ACCT: [id number] UNIT: [id number] : 1980 LOC: ER ROOM / BED: / AGE / SEX: 44 / M ADM STATUS: REG ER SERVICE 1024 ORDERING PHYSICIAN: JOSE ROBERTO JACKSON MD PROCEDURE(s): ABPLIV - CT AB PEL WITH IV CON ONLY REASON: Abd pain, hematochezia ORDER NUMBER(s): [id number], ACCESSION NUMBER(s): [id number] EXAM: CT Abdomen and Pelvis With Intravenous Contrast CLINICAL INDICATION: Abd pain, hematochezia TECHNIQUE: Axial computed tomography images of the abdomen and pelvis with intravenous contrast. This CT exam was performed using one or more of the following dose reduction techniques: automated exposure control, adjustment of the mA and/or kV according to patient size, and/or use of iterative reconstruction technique. RADIATION DOSE: CTDlvol= 10 mGy, DLP= 468.27 mGy-cm COMPARISON: None FINDINGS: LUNG BASES: Unremarkable. No mass. No consolidation. ABDOMEN: LIVER: Hepatomegaly. GALLBLADDER AND BILE DUCTS: Unremarkable. No calcified stones. No ductal dilation. PANCREAS: Unremarkable. No mass. No ductal dilation. SPLEEN: Unremarkable. No splenomegaly. ADRENALS: Unremarkable. No mass. KIDNEYS AND URETERS: Bilateral renal cysts. No stones within either kidney. No hydronephrosis. STOMACH AND BOWEL: Mild Constipation. No obstruction. No mucosal thickening. PELVIS: APPENDIX: Normal appendix. BLADDER: Unremarkable. No mass. REPRODUCTIVE: Unremarkable as visualized. ABDOMEN and PELVIS: INTRAPERITONEAL SPACE: Unremarkable. No free air. No significant fluid co llection. BONES/JOINTS: No acute fracture. No dislocation. SOFT TISSUES: Umbilical hernia containing fat. VASCULATURE: Scattered calcified atherosclerotic disease of aorta. No abdominal aortic aneurysm. LYMPH NODES: Unremarkable. No enlarged lymph nodes. OTHER FINDINGS: . . IMPRESSION: 1. No obstructive uropathy. 2. Umbilical hernia containing fat. ATED BY: TAMARA STEPHENSON MD DICTATED DATE/TIME: 03/21/24 1156 SIGNED BY: TAMARA STEPHENSON MD SIGNED DATE/TIME: 03/21/24 1156 CC: Time of 1ST Reevaluation: 10:50 Reevaluation 1ST: Unchanged Patient Education/Counseling: Diagnosis, Treatment Family Education/Counseling: No Family Present Departure 1 Departure Time of Disposition: 16:37 Impression: Primary Impression: Abdominal pain Additional Impressions: Hematochezia Accelerated hypertension Chronic kidney disease on chronic dialysis Disposition: ADMITTED INPATIENT Admit to: Tele Condition: Guarded Critical Care Note Critical Care Time?: Yes (45 min-critical care time only) Critical care comment: CRITICAL CARE TIME: 45 minutes Treatments/Evaluations: Close monitoring and treatment of unstable vital signs, cardiorespiratory, and neurologic status, while maintaining tight balance of fluid, respiratory, and cardiac interventions. This time includes discussing the case with the patient and the patients family. This time does not include all procedures stated elsewhere in this record. This time also includes reviewing old records, labs and radiological studies. This time includes examining and re- examining the patient. Additionally, this time also includes arranging care with admitting and consulting physicians. Stability Stability form required: No Heart Score Heart Score: Heart Score Response (Comments) Value History Highly Suspicious 2 EKG Normal 0 Age 45-64 1 Risk Factors >3 or Hx ASHD 2 Troponin N/A 0 Total 5 I personally scribed for JOSE ROBERTO JACKSON MD ([facility] on 03/21/24 at 10:33. Electronically submitted by Rajiv Alfredo ([email or web address]). I personally scribed for JOSE ROBERTO JACKSON MD ([facility]) on 03/21/24 at 13:09. Electronically submitted by Rajiv Alfredo ([email or web address]). I personally scribed for JOSE ROBERTO JACKSON MD ([facility]) on 03/21/24 at 14:12. Electronically submitted by Rajiv Alfredo ([email or web address]). JOSE ROBERTO JACKSON MD Mar 21, 2024 10:33
[2024-03-21] MEDS: IOHEXOL 300 MG/ML 100ML BOTTLE IJ ONE (11:34)
[2024-03-21] MEDS: HYDROmorphone HCL 2 MG/ML VL/or syr IV ONE ×2 (11:34→23:29)
[2024-03-21] MEDS: METOCLOPRAMIDE HCL 5MG/ml INJ 2ml VIAL IV ONE (11:34)
[2024-03-21 11:55] LABS: Basophils # (auto) 0 10 ^3/uL (0-0.2); Basophils % (auto) 0.2 % (0.0-2.0); Eosinophils # (auto) 0 10 ^3/uL (0-0.8); Hematocrit 36.8 % (41.0-53.0); Lymphocytes # (auto) 1.3 10 ^3/uL (0.4-5.4); Lymphocytes % (auto) 8.2 % (10.0-50.0); Mean Corpuscular Hemoglobin 23.1 pg (28.0-32.0); Mean Corpuscular Hgb Conc. 32.6 g/dL (32.0-36.0); Monocytes # (auto) 1.1 10 ^3/uL (0-1.3); Monocytes % (auto) 7.1 % (0.0-12.0); Neutrophils # (auto) 13.5 10 ^3/uL (1.6-8.6); Neutrophils % (auto) 84.5 % (37.0-80.0); Nucleated Red Blood Cells % 0.4 %; Platelet Count (auto) 201 10^3/uL (140-450); Red Blood Cells 5.18 10^6/uL (4.5-5.90); Red Cell Distribution Width 16.9 % (11.8-14.3)
--- NOTE | 2024-03-21 11:58 | DVH ---
EXAM: CT Abdomen and Pelvis With Intravenous Contrast CLINICAL INDICATION: Abd pain, hematochezia TECHNIQUE: Axial computed tomography images of the abdomen and pelvis with intravenous contrast. [facility] CT exam was performed using one or more of the following dose reduction techniques: automated exp osure control, adjustment of the mA and/or kV according to patient size, and/or use of iterative abdirashid nstruction technique. RADIATION DOSE: CTDlvol= 10 mGy, DLP= 468.27 mGy-cm COMPARISON: None FINDINGS: LUNG BASES: Unremarkable. No mass. No consolidation. ABDOMEN: LIVER: Hepatomegaly. GALLBLADDER AND BILE DUCTS: Unremarkable. No calcified stones. No ductal dilation. PANCREAS: Unremarkable. No mass. No ductal dilation. SPLEEN: Unremarkable. No splenomegaly. ADRENALS: Unremarkable. No mass. KIDNEYS AND URETERS: Bilateral renal cysts. No stones within either kidney. No hydronephrosis. STOMACH AND BOWEL: Mild Constipation. No obstruction. No mucosal thickening. PELVIS: APPENDIX: Normal appendix. BLADDER: Unremarkable. No mass. REPRODUCTIVE: Unremarkable as visualized. ABDOMEN and PELVIS: INTRAPERITONEAL SPACE: Unremarkable. No free air. No significant fluid collection. BONES/JOINTS: No acute fracture. No dislocation. SOFT TISSUES: Umbilical hernia containing fat. VASCULATURE: Scattered calcified atherosclerotic disease of aorta. No abdominal aortic aneurysm. LYMPH NODES: Unremarkable. No enlarged lymph nodes. OTHER FINDINGS: . . IMPRESSION: 1. No obstructive uropathy. 2. Umbilical hernia containing fat.
[2024-03-21 12:00] LABS: INR 1.13 (0.9-1.15); Partial Thromboplastin Time 26.5 SEC (24.5-34.5); Prothrombin Time 11.9 sec (9.3-11.8)
[2024-03-21 12:13] LABS: Anisocytosis Slight; Hypochromia Slight; Large Platelets FEW; Platelet Estimate Adequa
[2024-03-21] MEDS: HYDROmorphone HCL 2 MG/ML VL/or syr IM ONE (12:25)
[2024-03-21 12:42] LABS: Anion Gap 26 (5-15); BUN/Creatinine Ratio 5.3 (10.0-20.0); Potassium 3.8 mmol/L (3.5-5.1); Sodium 138 mmol/L (136-145)
[2024-03-21] MEDS: HYDROMORPHONE HCL 1 MG/ML INJ IV ONE (12:43)
[2024-03-21 12:46] LABS: Carbon Dioxide 19 mmol/L (20-31); Chloride 93 mmol/L (98-107)
[2024-03-21 12:47] LABS: Blood Urea Nitrogen 78 mg/dL (9-23); Glucose 110 mg/dL (74-106)
[2024-03-21 12:48] LABS: Alkaline Phosphatase 186 U/L (46-116); Aspartate Aminotransferase 36 U/L (13-40)
[2024-03-21 12:49] LABS: Alanine Aminotransferase 16 U/L (7-40); Bilirubin, Total 0.4 mg/dL (0.2-1.0); Calcium 9.3 mg/dL (8.7-10.4); Lipase 41 U/L (12-53); Total Protein 9.9 g/dL (5.7-8.2)
[2024-03-21] MEDS: FLEET MINERAL OIL ENEMA 133 ML PR ONE (16:45)
[2024-03-21] MEDS ORDERED: NITROGLYCERIN 0.4 MG SL TAB SL PRN (17:30)
[2024-03-21] MEDS ORDERED: SODIUM CHLORIDE 0.9% 1,000 ML IV SCH (17:30)
--- NOTE | 2024-03-21 17:33 | DVHHP2 ---
History of Present Illness Reason for Visit: Abdominal pain History of Present Illness Marbin Buckner is a 44-year-old male with past medical history of hypertension, hyperlipidemia, COPD, asthma, CKD, CHF, TIA, anemia, seizures, and end-stage renal disease on HD (//) who presents to the ED for abdominal pain, nausea, vomiting, diarrhea, blood-streaked stools, constipation x3 days. Patient also reports that he has chest pain 5/10 it pressure-like and constant. Patient reports that it does not radiate anywhere. Patient reports that he missed his dialysis today because of the symptoms. Patient denies shortness of breath, fever, chills, recent sick contacts, recent travels, lightheadedness, dizziness, and headaches. 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 Heme/Onc: Anemia NOS Renal/: Chronic renal failure Past Medical History TIA Past Surgical History: None Family History: Hypertension, Other (Mom with hypertension) Smoke: No ALCOHOL: occassional Drugs: Marijuana Lives: with Family Domestic Violence: Neg Review of Systems Constitutional: No: Fever, Chills, Sweats, Weakness, Malaise, Other Eyes: No: Pain, Vision change, Conjunctivae inflammation, Eyelid inflammation, Other, Redness ENT: No: Ear pain, Ear discharge, Nose pain, Nose discharge, Nose congestion, Mouth pain, Mouth swelling, Throat pain, Throat swelling, Other Respiratory: No: Cough, Dry, Shortness of breath, SOB with excertion, Wheezing, Hemoptysis, Pleuritic Pain, Sputum, Wheezing, Other Cardiovascular: Chest Pain; No: Palpitations, Orthopnea, Paroxysmal Noc. Dyspnea, Edema, Lt Headedness, Other Gastrointestinal: Nausea, Vomiting, Abdominal Pain, Diarrhea, Constipation, Hematochezia; No: Melena, Other Genitourinary: No Dysuria, No Frequency, No Incontinence, No Hematuria, No Retention, No Other Musculoskeletal: No: other, neck pain, shoulder pain, arm pain, back pain, hand pain, leg pain, foot pain Skin: No: Rash, Lesions, Jaundice, Bruising, Other Neurological: No: Weakness, Numbness, Incoordination, Change in speech, Confusion, Seizures, Other Allergies: Coded Allergies: Shellfish Allergy (Verified Allergy, Unknown, 07/20/20) Medications Current Medications Medications Dose Ordered Sig/Ramila Route Start Time Stop Time Status Last Admin Dose Admin Albuterol 2.5 mg Q4HPRN PRN NEB 03/21/24 17:30 UNV Ipratropium [place] 0.5 mg Q4HPRN PRN NEB 03/21/24 17:30 UNV Sodium Chloride 1,000 ml @ 75 mls/hr [id number] IV 03/21/24 17:30 UNV Acetaminophen 650 mg Q6HP PRN PO 03/21/24 17:30 UNV Ondansetron HCl 4 mg Q4HP PRN IV 03/21/24 17:30 UNV Nitroglycerin 0.4 mg Q5MINP PRN SL 03/21/24 17:30 UNV Morphine Sulfate 2 mg Q30M PRN IV 03/21/24 17:30 UNV Exam Vital Signs Vital Signs Date Time Temp Pulse Resp B/P (MAP) Pulse Ox O2 Delivery O2 Flow Rate FiO2 03/21/24 12:59 86 160/99 (119) 100 03/21/24 12:39 14 03/21/24 12:00 Room Air* 0 21 03/21/24 10:41 98.7 98.7 General Appearance: Alert, Oriented X3, Cooperative, No acute distress HEENT: Atraumatic, PERRLA, EOMI, Mucous membr. moist/pink Respiratory: Normal air movement Cardiovascular: Normal S1, Normal S2, No murmurs Abdominal: Soft Extremities: No clubbing, No cyanosis, No edema, Normal pulses, No tenderness/swelling Skin: No rashes, No breakdown, No significant lesion Neuro: Normal gait, Normal speech, Strength at 5/5 X4 ext, Normal tone, Sensation intact Psych/Mental Status: Mental status NL, Mood NL Labs/Xrays Labs Test 03/21/24 13:55 03/21/24 10:50 Range/Units Troponin I High Sensitivity 405 *H </=54 ng/L White Blood Count 16.0 H 4.4-10.8 10^3/uL Red Blood Count 5.18 4.5-5.90 10^6/uL Hemoglobin 12.0 L 13.5-17.5 g/dL Hematocrit 36.8 L 41.0-53.0 % Mean Corpuscular Volume 71.0 L 80.0-100.0 fL Mean Corpuscular Hemoglobin 23.1 L 28.0-32.0 pg Mean Corpuscular Hemoglobin Concent 32.6 32.0-36.0 g/dL Red Cell Distribution Width 16.9 H 11.8-14.3 % Platelet Count 201 140-450 10^3/uL Mean Platelet Volume 9.3 6.9-10.8 fL Neutrophils (%) (Auto) 84.5 H 37.0-80.0 % Lymphocytes (%) (Auto) 8.2 L 10.0-50.0 % Monocytes (%) (Auto) 7.1 0.0-12.0 % Eosinophils (%) (Auto) 0.0 0.0-7.0 % Basophils (%) (Auto) 0.2 0.0-2.0 % Neutrophils # (Auto) 13.5 H 1.6-8.6 10 ^3/uL Lymphocytes # (Auto) 1.3 0.4-5.4 10 ^3/uL Monocytes # (Auto) 1.1 0-1.3 10 ^3/uL Eosinophils # (Auto) 0 0-0.8 10 ^3/uL Basophils # (Auto) 0 0-0.2 10 ^3/uL Nucleated Red Blood Cells 0.4 % Platelet Estimate [place] Large Platelets Few Hypochromasia (manual) Slight Anisocytosis (manual) Slight Microcytosis Slight Prothrombin Time 11.9 H 9.3-11.8 sec Prothrombin Time INR 1.13 0.9-1.15 Activated Partial Thromboplast Time 26.5 24.5-34.5 SEC Sodium Level 138 136-145 mmol/L Potassium Level 3.8 3.5-5.1 mmol/L Chloride Level 93 L 98-107 mmol/L Carbon Dioxide Level 19 L 20-31 mmol/L Anion Gap 26 H 5-15 Blood Urea Nitrogen 78 H 9-23 mg/dL Creatinine 14.78 *H 0.700-1.30 mg/dL Glomerular Filtration Rate Calc 4 >90 mL/min BUN/Creatinine Ratio 5.3 L 10.0-20.0 Serum Glucose 110 H 74-106 mg/dL Calcium Level 9.3 8.7-10.4 mg/dL Total Bilirubin 0.4 0.2-1.0 mg/dL Aspartate Amino Transferase (AST) 36 13-40 U/L Alanine Aminotransferase (ALT) 16 7-40 U/L Alkaline Phosphatase 186 H 46-116 U/L Total Protein 9.9 H 5.7-8.2 g/dL Albumin 6.0 H 3.2-4.8 g/dL Lipase 41 12-53 U/L EXAM: CT Abdomen and Pelvis With Intravenous Contrast CLINICAL INDICATION: Abd pain, hematochezia TECHNIQUE: Axial computed tomography images of the abdomen and pelvis with intravenous contrast. This CT exam was performed using one or more of the following dose reduction techniques: automated exposure control, adjustment of the mA and/or kV according to patient size, and/or use of iterative reconstruction technique. RADIATION DOSE: CTDlvol= 10 mGy, DLP= 468.27 mGy-cm COMPARISON: None FINDINGS: LUNG BASES: Unremarkable. No mass. No consolidation. ABDOMEN: LIVER: Hepatomegaly. GALLBLADDER AND BILE DUCTS: Unremarkable. No calcified stones. No ductal dilation. PANCREAS: Unremarkable. No mass. No ductal dilation. SPLEEN: Unremarkable. No splenomegaly. ADRENALS: Unremarkable. No mass. KIDNEYS AND URETERS: Bilateral renal cysts. No stones within either kidney. No hydronephrosis. STOMACH AND BOWEL: Mild Constipation. No obstruction. No mucosal thickening. PELVIS: APPENDIX: Normal appendix. BLADDER: Unremarkable. No mass. REPRODUCTIVE: Unremarkable as visualized. ABDOMEN and PELVIS: INTRAPERITONEAL SPACE: Unremarkable. No free air. No significant fluid collection. BONES/JOINTS: No acute fracture. No dislocation. SOFT TISSUES: Umbilical hernia containing fat. VASCULATURE: Scattered calcified atherosclerotic disease of aorta. No abdominal aortic aneurysm. LYMPH NODES: Unremarkable. No enlarged lymph nodes. OTHER FINDINGS: . . IMPRESSION: 1. No obstructive uropathy. 2. Umbilical hernia containing fat. Assessment/Plan Assessment/Plan Assessment/Plan: Intractable abdominal pain rule out GI bleed Atypical chest pain rule out ACS End-stage renal disease on HD (T/TH/S) Leukocytosis Elevated creatinine Elevated ALP Anion gap open Elevated troponins Hydralazine given ER UA Sodium phos Dilaudid Protonix Reglan Enema ordered in ED RBC more EKG Type and screen PT/PTT CT abdomen pelvis noted UA Lipase Lipid TCH UDS Echo Respiratory treatments ACS protocol Statin FABIÁN Hold anti coags patient bleeding Last echo on 07/02/20 EF 55-60% IV antibiotics - Zosyn Cardiology consult GI consult Nephro consult Antiemetics Pain management Stool occult Blood cultures Stool bacterial culture A.m. labs Labs Chronic hypertension Continue home meds Chronic hyperlipidemia Continue home medication chronic COPD Chronic asthma Respiratory treatments p.r.n. Chronic CHF Continue home medications History of TIA History of seizure Monitor FEN/PPX NPO Hep-Lock DVT prophylaxis not indicated patient bleeding DVT ppx Protonix Admit to telemetry Discussed plan of care with patient and nurse Home medications reconciled Plan discussed with: Patient My Orders Orders - CARY WALSH DIRECTOR HARDWARE Procedure Category Date Status Time * Cardiology Consult CONS 03/21/24 Transmitted 17:18 Electrocardigram EKG 03/21/24 Transmitted 17:18 *[facility] CONS 03/21/24 Transmitted -[place] 17:18 Albuterol Medneb PHA 03/21/24 Logged (Ventolin Medneb) 17:30 Ipratropium Medneb PHA 03/21/24 Logged (Atrovent Medneb) 17:30 Echo 2d Mode Cardiac US 03/21/24 Transmitted DOP 17:18 * [facility] Legal Adviser CONS 03/21/24 Transmitted 17:18 Lipid Panel LAB 03/21/24 Transmitted 17:18 Thyroid Stimulating LAB 03/21/24 Transmitted Hormone 17:18 Drug Screen LAB 03/21/24 Transmitted 17:18 Admit ADMIT 03/21/24 Transmitted 17:18 Code Status CODE 03/21/24 Transmitted 17:18 Turbinated Bone Grinder SUMANTH 03/21/24 Transmitted 17:18 Sodium Chloride 0.9% PHA 03/21/24 Logged 17:30 Acetaminophen Tablet PHA 03/21/24 Logged (Tylenol Tablet) 17:30 Complete Blood Count LAB 03/22/24 Verified 04:00 Comprehensive LAB 03/22/24 Verified Metabolic Panel 04:00 Ondansetron Hcl PHA 03/21/24 Logged (Zofran) 17:30 Electrocardigram EKG 03/22/24 Transmitted 04:00 Troponin-I Hs LAB 03/21/24 Transmitted 17:18 Cardiac SUMANTH 03/21/24 Transmitted Rehabilitation - Outpa Nitroglycerin PHA 03/21/24 Logged Sublingual (Ntrostat 17:30 Morphine Sulfate PHA 03/21/24 Transmitted Injection 17:30 Stat Ekg For Chest [facility]AN[facility] 03/21/24 Transmitted Pain 17:18 Notify Of Changes [facility]AN[facility] 03/21/24 Transmitted From Base 17:18 Sap Portal Developer For SUMANTH 03/21/24 Transmitted 24 Hours 17:18 Emergency Dysrhythmia [facility]ANTH 03/21/24 Transmitted Protocol 17:18 Rhythm Strips Once [facility]ANTH 03/21/24 Transmitted Every Shift 17:18 Oxygen By Nasal RT 03/21/24 Transmitted Cannula 17:18 Npo (Nothing By DIET 03/21/24 Transmitted Mouth) Diet Dinner Atorvastatin (Lipitor) PHA 03/21/24 Transmitted 22:00 Atorvastatin (Lipitor) PHA 03/21/24 Transmitted 17:30 Date of Service: Mar 21, 2024 Billing Provider: CARY WALSH Common Visit Codes: [id number] INP/OBS CARE (HIGH) CARY WALSH Mar 21, 2024 17:33
[2024-03-21 18:18] LABS: LDL Cholesterol 89 mg/dL (< 100)
[2024-03-21 18:19] LABS: Cholesterol 183 mg/dL (< 200)
[2024-03-21 18:23] LABS: HDL Cholesterol 61 mg/dL (40-59); Triglycerides 174 mg/dL (< 150)
[2024-03-21] MEDS: ATORVASTATIN 20 MG TAB PO ONE (19:02)
[2024-03-21] MEDS: PIPERACILLIN-TAZOB 3.375GM 100 ML IV ONE (19:03)
[2024-03-21] MEDS: ALBUTEROL SULF 2.5 MG/0.5ML(0.5%) NEB SOLN NEB PRN (19:48)
[2024-03-21] MEDS: IPRATROPIUM BROM 0.5 MG/2.5ML INH SOL NEB PRN (19:48)
[2024-03-21] MEDS: MORPHINE SULFATE INJ 2 MG/ml SYRG IV PRN (20:45)
[2024-03-21] MEDS: KETOROLAC TROMETH 30 MG/ML 1ML VIAL IV ONE (20:45)
[2024-03-21] MEDS: ONDANSETRON HCL 4 MG/2 ML VIAL IV PRN (20:47)
[2024-03-21] MEDS: DOCUSATE SOD 100 MG CAP PO ONE (23:25)
[2024-03-21] MEDS: PANTOPRAZOLE 40 MG/10 ML VIAL INJ IV SCH (23:30)
[2024-03-22] VITALS (12 sets, daily range): BP systolic 142–203; BP diastolic 74–120; PULSE 65–113; RESP 17–19; TEMP 97.7–98.4; O2SAT 92–100
[2024-03-22] MEDS: hydrALAZINE HCL 20 MG/ML VL IV PRN (00:03)
[2024-03-22] MEDS: ACETAMINOPHEN 325 MG TAB PO PRN (01:12)
--- NOTE | 2024-03-22 01:50 | ECG ---
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
[2024-03-22] MEDS: PIPERACILLIN-TAZOB 3.375GM 100 ML IV SCH (04:55)
--- NOTE | 2024-03-22 13:34 | DVHPN2 ---
Reviewed: Care Plan, H&P, Labs, Medications, Previous Orders, Radiology Changes from previous H/P or p: No Changes Eyes: No Pain, No Vision change, No Conjunctivae inflammation, No Eyelid inflammation, No Other, No Redness ENT: No Ear pain, No Ear discharge, No Nose pain, No Nose discharge, No Nose congestion, No Mouth pain, No Mouth swelling, No Throat pain, No Throat swelling, No Other Cardiovascular: Chest Pain; No Palpitations, No Orthopnea, No Paroxysmal Noc. Dyspnea, No Edema, No Lt Headedness, No Other Respiratory: No Cough, No Dry, No Shortness of breath, No SOB with excertion, No Wheezing, No Hemoptysis, No Pleuritic Pain, No Sputum, No Other Gastrointestinal: Nausea, Vomiting, Abdominal Pain, Diarrhea, Constipation; No Melena; Hematochezia; No Other Genitourinary: No Dysuria, No Frequency, No Incontinence, No Hematuria, No Retention, No Other Musculoskeletal: No other, No neck pain, No shoulder pain, No arm pain, No back pain, No hand pain, No leg pain, No foot pain Skin: No Rash, No Lesions, No Jaundice, No Bruising, No Other Objective Vitals Vital Signs Date Time Temp Pulse Resp B/P (MAP) Pulse Ox O2 Delivery O2 Flow Rate FiO2 03/22/24 10:00 94 Nasal Cannula* 3 32 03/22/24 08:49 183/87 03/22/24 08:30 97.9 65 17 97.9 Intake/Output Intake and Output 03/22/24 07:00 Intake Total 30 ml Balance 30 ml Intake Oral 30 ml # Voids 1 Medications Current Medications Medications Dose Ordered Sig/Ramila Route Start Time Stop Time Status Last Admin Dose Admin Albuterol 2.5 mg Q4HPRN PRN NEB 03/21/24 17:30 03/21/24 19:48 2.5 MG Ipratropium [place] 0.5 mg Q4HPRN PRN NEB 03/21/24 17:30 03/21/24 19:48 0.5 MG Acetaminophen 650 mg Q6HP PRN PO 03/21/24 17:30 03/22/24 11:22 650 MG Ondansetron HCl 4 mg Q4HP PRN IV 03/21/24 17:30 03/21/24 20:47 4 MG Nitroglycerin 0.4 mg Q5MINP PRN SL 03/21/24 17:30 Morphine Sulfate 2 mg Q30M PRN IV 03/21/24 17:30 03/21/24 20:45 2 MG Atorvastatin Calcium 10 mg HS PO 03/22/24 22:00 Piperacillin Sod/ Tazobactam Sod 100 ml @ 25 mls/hr Q12H IV 03/22/24 06:00 03/22/24 04:55 25 MLS/HR Pantoprazole Sodium 40 mg BID IV 03/21/24 22:00 03/21/24 23:30 40 MG Hydralazine HCl 10 mg Q6HP PRN IV 03/21/24 23:45 03/22/24 08:49 10 MG Laboratory Results Laboratory Tests 03/21/24 10:50 Lipid panel Test 03/21/24 13:55 Cholesterol Level 183 mg/dL (< 200) HDL Cholesterol 61 mg/dL (40-59) H Triglycerides Level 174 mg/dL (< 150) H HgA1c, TSH Test 03/21/24 13:55 Thyroid Stimulating Hormone (TSH) 1.70 uIU/mL (0.55-4.78) Labs and/or images reviewed: Labs reviewed by me, Image(s) reviewed by me Assessment/Plan Assessment/Plan Intractable abdominal pain with the melena: Rule out GI bleed, consult for Dr. Blayne Desir Atypical chest pain rule out acute coronary syndrome ESRD on hemodialysis Sepsis Elevated creatinine Elevated liver function tests Ruled hypertension Hypercholesterolemia COPD exacerbation Asthma Acute CHF exacerbation History of seizures History of TIA Time spent 65 minutes Patient is full code Advanced care planning time 20 minutes Plan discussed with: Patient Date of Service: Mar 22, 2024 Billing Provider: NANO COELHO MD Common Visit Codes: [id number] CARE 30-74 MIN NANO COELHO MD Mar 22, 2024 13:34
--- NOTE | 2024-03-22 13:36 | DVHINCON2 ---
Date of service: Mar 22, [address] To Reason for Consultation Abdominal pain some blood-streaked stools with constipation History of Present Illness This 43-year-old male with a history of hypertension hyperlipidemia COPD asthma renal failure on dialysis presented with complaints of abdominal pain which was severe diffuse with constipation and blood-streaked stools a few spots. Denied any hematemesis or melena patient has some abdominal pain as well as chest pains. Patient has history of marijuana abuse and alcohol abuse. Had colonoscopy done in the same in [facility] a few months ago as per the patient which was negative Past Medical History CHF hypertension hyper lipidemia Past Surgical History None Family History: Colon cancer Grandfather Diabetes mellitus G8 MOTHER Hypertension G8 MOTHER Family History Noncontributory Social History Smoking as well as drinking smokes marijuana also Allergies: Coded Allergies: Shellfish Allergy (Verified Allergy, Unknown, 07/20/20) Home Meds Active Scripts Pantoprazole Sodium Sesquihydr (Pantoprazole Sodium) 40 Mg Tab, 40 MG PO DAILY, #30 TAB Prov:NANO COELHO MD 04/26/21 Sucralfate (CARAFATE) 1 Gm Tab, 1 GM OR QID for 14 Days, #56 TAB Prov:NANO COELHO MD 04/26/21 Ferrous Sulfate (Iron) 325 Mg Tab, 325 MG PO BID, #180 TAB Prov:NANO COELHO MD 04/26/21 Nifedipine (Nifedipine Er) 90 Mg Tab, 1 TAB PO DAILY, #90 TAB 1 Refill Prov:NANO COELHO MD 04/26/21 Naloxegol Oxalate (Movantik) 12.5 Mg Tab, 12.5 MG PO DAILY, #14 TAB Prov:YOLY GARCIA MD 07/21/20 Carvedilol (COREG) 12.5 Mg Tab, 12.5 MG PO BID, #60 TAB Prov:YOLY GARCIA MD 07/21/20 Albuterol Sulfate (VENTOLIN MDI) 90 Mcg Ih, 90 MCG IN Q6HPRN PRN, #1 INHALER Prov:YOLY GARCIA MD 07/21/20 Amlodipine Besylate (Amlodipine Besylate) 5 Mg Tab, 10 MG PO DAILY for 30 Days, #30 TAB Prov:YOLY GARCIA MD 07/21/20 Reported Medications Sevelamer Carbonate (Renvela) 800 Mg Tab, 2 TAB PO TID, #540 TAB 3 Refills 08/18/20 Albuterol Sulfate (Albuterol) 4 Mg Tab, IN, INHALER 07/20/20 Polyethylene Glycol (MIRALAX 17GM PWD) 17 Gm Pw, 17 GRAMS PO DAILY, #527 GRAMS 07/20/20 Omeprazole (Gnp Omeprazole) 20 Mg Tab, 40 MG PO, TAB 07/20/20 Clonidine Hydrochloride (Clonidine Hcl) 0.1 Mg Tab, 0.1 MG PO BID for 30 Days, MG 07/20/20 Hydrocodone-Acetaminophen (Hydrocodone/Acetaminophen 5-325 mg) 1 Tab Tab, 1 TAB PO Q8HPRN, TAB 07/20/20 Current Medications Current Medications Medications (Trade) Dose Ordered Sig/Ramila Route PRN Reason Start Time Stop Time Status Last Admin Albuterol (Ventolin Medneb) 2.5 mg Q4HPRN PRN NEB SHORTNESS OF BREATH 03/21/24 17:30 03/21/24 19:48 Ipratropium [place] (Atrovent Medneb) 0.5 mg Q4HPRN PRN NEB SHORTNESS OF BREATH 03/21/24 17:30 03/21/24 19:48 Sodium Chloride 1,000 ml @ 75 mls/hr [id number] IV 03/21/24 17:30 03/21/24 17:46 DC Acetaminophen (Tylenol Tablet) 650 mg Q6HP PRN PO MILD PAIN (1-3 PAIN SCALE) 03/21/24 17:30 03/22/24 11:22 Ondansetron HCl (Zofran) 4 mg Q4HP PRN IV NAUSEA / VOMITING 03/21/24 17:30 03/21/24 20:47 Nitroglycerin (Ntrostat Sublingual) 0.4 mg Q5MINP PRN SL FOR CHEST PAIN 03/21/24 17:30 Morphine Sulfate 2 mg Q30M PRN IV FOR CHEST PAIN 03/21/24 17:30 03/21/24 20:45 Atorvastatin Calcium (Lipitor) 10 mg HS PO 03/22/24 22:00 Piperacillin Sod/ Tazobactam Sod 100 ml @ 25 mls/hr Q12H IV 03/22/24 06:00 03/22/24 04:55 Pantoprazole Sodium (Protonix) 40 mg BID IV 03/21/24 22:00 03/21/24 23:30 Hydralazine HCl (Apresoline Injection) 10 mg Q6HP PRN IV SBP>150 03/21/24 23:45 03/22/24 08:49 Review of Systems Noncontributory Vital Signs Vital Signs Date Time Temp Pulse Resp B/P (MAP) Pulse Ox O2 Delivery O2 Flow Rate FiO2 03/22/24 10:00 94 Nasal Cannula* 3 32 03/22/24 08:49 183/87 03/22/24 08:30 97.9 65 17 97.9 Physical Exam Originally built and nourished male in no acute distress vital signs stable HEENT examination mild pallor no icterus neck was supple no lymphadenopathy no thyromegaly Lungs clear Cardiovascular examination unremarkable Abdomen is soft but generalized mild tenderness no rigidity no guarding no masses Bowel sounds normal Extremities no edema Neuro grossly intact Labs/Diagnostic Data Labs showed the stool occult blood is negative [place] [id number] lipase and LFTs are unremarkable Labs Test 03/21/24 18:00 03/21/24 13:55 03/21/24 10:50 Range/Units Stool Occult Blood Negative Negative Stool Occult Blood Sample #3 Negative Troponin I High Sensitivity 405 *H </=54 ng/L Triglycerides Level 174 H < 150 mg/dL Cholesterol Level 183 < 200 mg/dL LDL Cholesterol 89 < 100 mg/dL HDL Cholesterol 61 H 40-59 mg/dL Thyroid Stimulating Hormone (TSH) 1.70 0.55-4.78 uIU/mL White Blood Count 16.0 H 4.4-10.8 10^3/uL Red Blood Count 5.18 4.5-5.90 10^6/uL Hemoglobin 12.0 L 13.5-17.5 g/dL Hematocrit 36.8 L 41.0-53.0 % Mean Corpuscular Volume 71.0 L 80.0-100.0 fL Mean Corpuscular Hemoglobin 23.1 L 28.0-32.0 pg Mean Corpuscular Hemoglobin Concent 32.6 32.0-36.0 g/dL Red Cell Distribution Width 16.9 H 11.8-14.3 % Platelet Count 201 140-450 10^3/uL Mean Platelet Volume 9.3 6.9-10.8 fL Neutrophils (%) (Auto) 84.5 H 37.0-80.0 % Lymphocytes (%) (Auto) 8.2 L 10.0-50.0 % Monocytes (%) (Auto) 7.1 0.0-12.0 % Eosinophils (%) (Auto) 0.0 0.0-7.0 % Basophils (%) (Auto) 0.2 0.0-2.0 % Neutrophils # (Auto) 13.5 H 1.6-8.6 10 ^3/uL Lymphocytes # (Auto) 1.3 0.4-5.4 10 ^3/uL Monocytes # (Auto) 1.1 0-1.3 10 ^3/uL Eosinophils # (Auto) 0 0-0.8 10 ^3/uL Basophils # (Auto) 0 0-0.2 10 ^3/uL Nucleated Red Blood Cells 0.4 % Platelet Estimate [place] Large Platelets Few Hypochromasia (manual) Slight Anisocytosis (manual) Slight Microcytosis Slight Prothrombin Time 11.9 H 9.3-11.8 sec Prothrombin Time INR 1.13 0.9-1.15 Activated Partial Thromboplast Time 26.5 24.5-34.5 SEC Sodium Level 138 136-145 mmol/L Potassium Level 3.8 3.5-5.1 mmol/L Chloride Level 93 L 98-107 mmol/L Carbon Dioxide Level 19 L 20-31 mmol/L Anion Gap 26 H 5-15 Blood Urea Nitrogen 78 H 9-23 mg/dL Creatinine 14.78 *H 0.700-1.30 mg/dL Glomerular Filtration Rate Calc 4 >90 mL/min BUN/Creatinine Ratio 5.3 L 10.0-20.0 Serum Glucose 110 H 74-106 mg/dL Calcium Level 9.3 8.7-10.4 mg/dL Total Bilirubin 0.4 0.2-1.0 mg/dL Aspartate Amino Transferase (AST) 36 13-40 U/L Alanine Aminotransferase (ALT) 16 7-40 U/L Alkaline Phosphatase 186 H 46-116 U/L Total Protein 9.9 H 5.7-8.2 g/dL Albumin 6.0 H 3.2-4.8 g/dL Lipase 41 12-53 U/L Assessment 43-year-old with a history of hypertension hyperlipidemia COPD on renal dialysis for seen at chronic kidney disease 69 with complaints of constipation abdominal pain some little blood stool in the stools. To flexor alcohol as well as marijuana physical examination mild nonspecific tenderness stool for occult blood is negative white count is slightly increased Possibility of constipation with possible mild diverticulitis also can not be excluded CT scan CT scan done without contrast showed no gross abnormality except for small umbilical hernia Symptoms are possibly from chronic constipation and possible diverticulosis. Some mild early diverticulitis Plan/Recommendation If symptoms persist may need further evaluation including repeating the CT scan with oral contrast and even endoscopic workup if necessary if significant bleeding. Time being we will recommend symptomatic treatment and some antibiotics as necessary Thank you Dr. Blayne Liang discussed with: Patient KERRY MINOR MD Mar 22, 2024 13:36
--- NOTE | 2024-03-22 14:22 | DVHINCON2 ---
Date Seen: Mar 22, 2024 Referring Physician Zuleika Reason for Consultation Elevated troponin History of Present Illness 44-year-old male with PMH for HTN, COPD, HLD, HFpEF, ESRD on HD presents to the hospital with abdominal pain and lower back pain with nausea and diarrhea. Patient was also stating having constipation for 3 days with some bright red blood noted when he tried to go. Upon evaluation in the ER, troponin noted to be elevated trending 438, 405. Patient after assessing did not note that he did have some chest pain that was substernal, nonradiating, sharp in nature, intermittent. EKG reviewed and shows sinus tachycardia at 100 beats per minute, no acute ST and T-wave abnormality, some early repolarization pattern noted anteriorly. Past Medical History HTN HFpEF ESRD on HD TIA HLD Past Surgical History Denies previous cardiac surgeries Family History: Colon cancer Grandfather Diabetes mellitus G8 MOTHER Hypertension G8 MOTHER Social History Denies alcohol, or tobacco use. Does use marijuana. Denies any other illicit drug use Allergies: Coded Allergies: Shellfish Allergy (Verified Allergy, Unknown, 07/20/20) Home Meds Active Scripts Pantoprazole Sodium Sesquihydr (Pantoprazole Sodium) 40 Mg Tab, 40 MG PO DAILY, #30 TAB Prov:NANO COELHO MD 04/26/21 Sucralfate (CARAFATE) 1 Gm Tab, 1 GM OR QID for 14 Days, #56 TAB Prov:NANO COELHO MD 04/26/21 Ferrous Sulfate (Iron) 325 Mg Tab, 325 MG PO BID, #180 TAB Prov:NANO COELHO MD 04/26/21 Nifedipine (Nifedipine Er) 90 Mg Tab, 1 TAB PO DAILY, #90 TAB 1 Refill Prov:NANO COELHO MD 04/26/21 Naloxegol Oxalate (Movantik) 12.5 Mg Tab, 12.5 MG PO DAILY, #14 TAB Prov:YOLY GARCIA MD 07/21/20 Carvedilol (COREG) 12.5 Mg Tab, 12.5 MG PO BID, #60 TAB Prov:YOLY GARCIA MD 07/21/20 Albuterol Sulfate (VENTOLIN MDI) 90 Mcg Ih, 90 MCG IN Q6HPRN PRN, #1 INHALER Prov:YOLY GARCIA MD 07/21/20 Amlodipine Besylate (Amlodipine Besylate) 5 Mg Tab, 10 MG PO DAILY for 30 Days, #30 TAB Prov:YOLY GARCIA MD 07/21/20 Reported Medications Sevelamer Carbonate (Renvela) 800 Mg Tab, 2 TAB PO TID, #540 TAB 3 Refills 08/18/20 Albuterol Sulfate (Albuterol) 4 Mg Tab, IN, INHALER 07/20/20 Polyethylene Glycol (MIRALAX 17GM PWD) 17 Gm Pw, 17 GRAMS PO DAILY, #527 GRAMS 07/20/20 Omeprazole (Gnp Omeprazole) 20 Mg Tab, 40 MG PO, TAB 07/20/20 Clonidine Hydrochloride (Clonidine Hcl) 0.1 Mg Tab, 0.1 MG PO BID for 30 Days, MG 07/20/20 Hydrocodone-Acetaminophen (Hydrocodone/Acetaminophen 5-325 mg) 1 Tab Tab, 1 TAB PO Q8HPRN, TAB 07/20/20 Current Medications Current Medications Medications (Trade) Dose Ordered Sig/Ramila Route PRN Reason Start Time Stop Time Status Last Admin Albuterol (Ventolin Medneb) 2.5 mg Q4HPRN PRN NEB SHORTNESS OF BREATH 03/21/24 17:30 03/21/24 19:48 Ipratropium [place] (Atrovent Medneb) 0.5 mg Q4HPRN PRN NEB SHORTNESS OF BREATH 03/21/24 17:30 03/21/24 19:48 Sodium Chloride 1,000 ml @ 75 mls/hr [id number] IV 03/21/24 17:30 03/21/24 17:46 DC Acetaminophen (Tylenol Tablet) 650 mg Q6HP PRN PO MILD PAIN (1-3 PAIN SCALE) 03/21/24 17:30 03/22/24 11:22 Ondansetron HCl (Zofran) 4 mg Q4HP PRN IV NAUSEA / VOMITING 03/21/24 17:30 03/21/24 20:47 Nitroglycerin (Ntrostat Sublingual) 0.4 mg Q5MINP PRN SL FOR CHEST PAIN 03/21/24 17:30 Morphine Sulfate 2 mg Q30M PRN IV FOR CHEST PAIN 03/21/24 17:30 03/21/24 20:45 Atorvastatin Calcium (Lipitor) 10 mg HS PO 03/22/24 22:00 Piperacillin Sod/ Tazobactam Sod 100 ml @ 25 mls/hr Q12H IV 03/22/24 06:00 03/22/24 04:55 Pantoprazole Sodium (Protonix) 40 mg BID IV 03/21/24 22:00 03/21/24 23:30 Hydralazine HCl (Apresoline Injection) 10 mg Q6HP PRN IV SBP>150 03/21/24 23:45 03/22/24 08:49 Review of Systems Constitutional: No: Fever, Chills, Sweats, , Other positive: Weakness, Malaise Eyes: No: Pain, Vision change, Conjunctivae inflammation, Eyelid inflammation, Other, Redness ENT: No: Ear pain, Ear discharge, Nose pain, Nose discharge, Nose congestion, Mouth pain, Mouth swelling, Throat pain, Throat swelling, Other Respiratory: No: Cough, Dry, Shortness of breath, SOB with exertion, Wheezing, Hemoptysis, Pleuritic Pain, Sputum, Wheezing, Other Cardiovascular: ; No: Palpitations, Orthopnea, Paroxysmal Noc. Dyspnea, Edema, Lt Headedness, Other positive: Chest Pain Gastrointestinal: No: Nausea, Vomiting, , Hematochezia, Other positive: Abdominal Pain, Diarrhea, Constipation, Melena Genitourinary: No Dysuria, No Frequency, No Incontinence, No Hematuria, No Retention, No Other Musculoskeletal: neck pain; No: other, shoulder pain, arm pain, hand pain, leg pain, foot pain positive: back pain, Skin: No: Rash, Lesions, Jaundice, Bruising, Other Neurological: Other (Dizziness, headache.); No: Weakness, Numbness, Incoordination, Change in speech, Confusion, Seizures Vital Signs Vital Signs Date Time Temp Pulse Resp B/P (MAP) Pulse Ox O2 Delivery O2 Flow Rate FiO2 03/22/24 13:00 98.1 79 19 166/99 (121) 94 98.1 03/22/24 10:00 Nasal Cannula* 3 32 Physical Exam General appearance: Ill-appearing, in mild acute distress. HEENT: Exam shows: Normocephalic, atraumatic, PERRLA, EOMI Neck: Supple, no bruits Chest: Equal chest excursion bilaterally. Breath sounds normal-no rales or wheezes. Heart: Rhythm: Regular rate; no murmur or gallop Abdomen: Exam shows: Soft, nontender, nondistended Musculoskeletal: No clubbing, no cyanosis, no lower extremity edema Dermatology: Skin warm, moist. Neurological: Exam shows: Alert and oriented x3-4, normal speech Available prior records, labs, EKG, rhythm strips reviewed and interpreted Labs/Diagnostic Data Labs Test 03/21/24 18:00 03/21/24 13:55 03/21/24 10:50 Range/Units Stool Occult Blood Negative Negative Stool Occult Blood Sample #3 Negative Troponin I High Sensitivity 405 *H </=54 ng/L Triglycerides Level 174 H < 150 mg/dL Cholesterol Level 183 < 200 mg/dL LDL Cholesterol 89 < 100 mg/dL HDL Cholesterol 61 H 40-59 mg/dL Thyroid Stimulating Hormone (TSH) 1.70 0.55-4.78 uIU/mL White Blood Count 16.0 H 4.4-10.8 10^3/uL Red Blood Count 5.18 4.5-5.90 10^6/uL Hemoglobin 12.0 L 13.5-17.5 g/dL Hematocrit 36.8 L 41.0-53.0 % Mean Corpuscular Volume 71.0 L 80.0-100.0 fL Mean Corpuscular Hemoglobin 23.1 L 28.0-32.0 pg Mean Corpuscular Hemoglobin Concent 32.6 32.0-36.0 g/dL Red Cell Distribution Width 16.9 H 11.8-14.3 % Platelet Count 201 140-450 10^3/uL Mean Platelet Volume 9.3 6.9-10.8 fL Neutrophils (%) (Auto) 84.5 H 37.0-80.0 % Lymphocytes (%) (Auto) 8.2 L 10.0-50.0 % Monocytes (%) (Auto) 7.1 0.0-12.0 % Eosinophils (%) (Auto) 0.0 0.0-7.0 % Basophils (%) (Auto) 0.2 0.0-2.0 % Neutrophils # (Auto) 13.5 H 1.6-8.6 10 ^3/uL Lymphocytes # (Auto) 1.3 0.4-5.4 10 ^3/uL Monocytes # (Auto) 1.1 0-1.3 10 ^3/uL Eosinophils # (Auto) 0 0-0.8 10 ^3/uL Basophils # (Auto) 0 0-0.2 10 ^3/uL Nucleated Red Blood Cells 0.4 % Platelet Estimate [place] Large Platelets Few Hypochromasia (manual) Slight Anisocytosis (manual) Slight Microcytosis Slight Prothrombin Time 11.9 H 9.3-11.8 sec Prothrombin Time INR 1.13 0.9-1.15 Activated Partial Thromboplast Time 26.5 24.5-34.5 SEC Sodium Level 138 136-145 mmol/L Potassium Level 3.8 3.5-5.1 mmol/L Chloride Level 93 L 98-107 mmol/L Carbon Dioxide Level 19 L 20-31 mmol/L Anion Gap 26 H 5-15 Blood Urea Nitrogen 78 H 9-23 mg/dL Creatinine 14.78 *H 0.700-1.30 mg/dL Glomerular Filtration Rate Calc 4 >90 mL/min BUN/Creatinine Ratio 5.3 L 10.0-20.0 Serum Glucose 110 H 74-106 mg/dL Calcium Level 9.3 8.7-10.4 mg/dL Total Bilirubin 0.4 0.2-1.0 mg/dL Aspartate Amino Transferase (AST) 36 13-40 U/L Alanine Aminotransferase (ALT) 16 7-40 U/L Alkaline Phosphatase 186 H 46-116 U/L Total Protein 9.9 H 5.7-8.2 g/dL Albumin 6.0 H 3.2-4.8 g/dL Lipase 41 12-53 U/L Assessment Elevated troponin Atypical chest pain Abdominal pain, lower back pain Suspected GI bleed ESRD on HD Hypertensive urgency Mild acute on chronic HFpEF Plan/Recommendation * Continue trending troponin. Likely demand ischemia in setting of hypertensive urgency. Follow up echo. Atypical chest pain. EKG negative for acute ischemic changes. Continue on statin. Patient not a candidate for continued ischemic workup at this time in setting of possible GI bleed. Ischemic workup likely outpatient once cleared by GI. * HD per Nephrology. * GI on board, continue monitoring H&H. * Continue statin * Restarted on home BP regimen for blood pressure control, if not tolerating p.o. continue IV p.r.n.'s. Case Discussed with Dr Mckeon. Continued blood pressure management. Follow up echo. Continue trending troponin. Not started on anticoagulation therapy setting of possible GI bleed. Follow up GI recs. Critical care, time spent: 42 minutes This medical document was created using an electronic medical record system with voice recognition software and computerized dictation system. Although this document has been carefully reviewed, there might still be some phonetic and typographical errors. Occasional wrong-word or ``sound-alike substitutions may have occurred due to the inherent limitations of voice recognition software. These areas are purely typographical due to imperfections of the software programs and do not reflect any compromise in the patient's medical care. Please read the chart carefully and recognize, using context, where these substitutions have occurred. Thank you for allowing me to participate in the management of this patient. The treatment plan was discussed with and agreed upon by patient/family including requesting consultants and ordering of imaging/procedures. Plan discussed with: Patient NYHA Physical activity limitations: Class2(Slight)fatigue,sob Date of Service: Mar 22, 2024 Billing Provider: ROS KHALIL Cardiology Common Codes: [id number] INP/OBS CARE (High), [id number] CARE 30-74 MIN ROS KHALIL Mar 22, 2024 14:22
[2024-03-22] MEDS: OXYCODONE W/ ACETAMINOPHEN 5/325MG TABLET PO PRN (14:54)
--- NOTE | 2024-03-22 17:10 | DVHINCON2 ---
Date of service: Mar 22, [address] Coelho Reason for Consultation ESRD History of Present Illness Anthony Buckner is a 44-year-old male with known history of ESRD on maintenance hemodialysis presents for further evaluation and management of abdominal pain. He was seen in his room awake alert conversant and was reporting significant abdominal discomfort. He denies recent hematochezia, hemoptysis, fever, oliver rrhea. Past Medical History ESRD Hypertension Anemia Allergies: Coded Allergies: Shellfish Allergy (Verified Allergy, Unknown, 07/20/20) Home Meds Active Scripts Pantoprazole Sodium Sesquihydr (Pantoprazole Sodium) 40 Mg Tab, 40 MG PO DAILY, #30 TAB Prov:NANO COELHO MD 04/26/21 Sucralfate (CARAFATE) 1 Gm Tab, 1 GM OR QID for 14 Days, #56 TAB Prov:NANO COELHO MD 04/26/21 Ferrous Sulfate (Iron) 325 Mg Tab, 325 MG PO BID, #180 TAB Prov:NANO COELHO MD 04/26/21 Nifedipine (Nifedipine Er) 90 Mg Tab, 1 TAB PO DAILY, #90 TAB 1 Refill Prov:NANO COELHO MD 04/26/21 Naloxegol Oxalate (Movantik) 12.5 Mg Tab, 12.5 MG PO DAILY, #14 TAB Prov:YOLY GARCIA MD 07/21/20 Carvedilol (COREG) 12.5 Mg Tab, 12.5 MG PO BID, #60 TAB Prov:YOLY GARCIA MD 07/21/20 Albuterol Sulfate (VENTOLIN MDI) 90 Mcg Ih, 90 MCG IN Q6HPRN PRN, #1 INHALER Prov:YOLY GARCIA MD 07/21/20 Amlodipine Besylate (Amlodipine Besylate) 5 Mg Tab, 10 MG PO DAILY for 30 Days, #30 TAB Prov:YOLY GARCIA MD 07/21/20 Reported Medications Sevelamer Carbonate (Renvela) 800 Mg Tab, 2 TAB PO TID, #540 TAB 3 Refills 08/18/20 Albuterol Sulfate (Albuterol) 4 Mg Tab, IN, INHALER 07/20/20 Polyethylene Glycol (MIRALAX 17GM PWD) 17 Gm Pw, 17 GRAMS PO DAILY, #527 GRAMS 07/20/20 Omeprazole (Gnp Omeprazole) 20 Mg Tab, 40 MG PO, TAB 07/20/20 Clonidine Hydrochloride (Clonidine Hcl) 0.1 Mg Tab, 0.1 MG PO BID for 30 Days, MG 07/20/20 Hydrocodone-Acetaminophen (Hydrocodone/Acetaminophen 5-325 mg) 1 Tab Tab, 1 TAB PO Q8HPRN, TAB 07/20/20 Current Medications Current Medications Medications (Trade) Dose Ordered Sig/Ramila Route PRN Reason Start Time Stop Time Status Last Admin Albuterol (Ventolin Medneb) 2.5 mg Q4HPRN PRN NEB SHORTNESS OF BREATH 03/21/24 17:30 03/21/24 19:48 Ipratropium [place] (Atrovent Medneb) 0.5 mg Q4HPRN PRN NEB SHORTNESS OF BREATH 03/21/24 17:30 03/21/24 19:48 Sodium Chloride 1,000 ml @ 75 mls/hr [id number] IV 03/21/24 17:30 03/21/24 17:46 DC Acetaminophen (Tylenol Tablet) 650 mg Q6HP PRN PO MILD PAIN (1-3 PAIN SCALE) 03/21/24 17:30 03/22/24 11:22 Ondansetron HCl (Zofran) 4 mg Q4HP PRN IV NAUSEA / VOMITING 03/21/24 17:30 03/21/24 20:47 Nitroglycerin (Ntrostat Sublingual) 0.4 mg Q5MINP PRN SL FOR CHEST PAIN 03/21/24 17:30 Morphine Sulfate 2 mg Q30M PRN IV FOR CHEST PAIN 03/21/24 17:30 03/21/24 20:45 Atorvastatin Calcium (Lipitor) 10 mg HS PO 03/22/24 22:00 Piperacillin Sod/ Tazobactam Sod 100 ml @ 25 mls/hr Q12H IV 03/22/24 06:00 03/22/24 04:55 Pantoprazole Sodium (Protonix) 40 mg BID IV 03/21/24 22:00 03/21/24 23:30 Hydralazine HCl (Apresoline Injection) 10 mg Q6HP PRN IV SBP>150 03/21/24 23:45 03/22/24 08:49 Oxycodone/ Acetaminophen (Percocet 5/ 325MG Tablet) 2 tab Q6HP PRN PO SEVERE PAIN (7-10 PAIN SCALE) 03/22/24 15:00 03/22/24 14:54 Family History: Colon cancer Grandfather Diabetes mellitus G8 MOTHER Hypertension G8 MOTHER Review of Systems as per history of present illness otherwise all systems are reviewed and are noncontributory H&P Exam Vital Signs/I&O Vital Sign Date Time Temp Pulse Resp B/P (MAP) Pulse Ox O2 Delivery O2 Flow Rate FiO2 03/22/24 13:00 98.1 79 19 166/99 (121) 94 98.1 03/22/24 10:00 Nasal Cannula 3.0 03/22/24 10:00 32 Intake and Output 03/21/24 03/22/24 19:00 07:00 Intake Total 30 ml Balance 30 ml Intake Oral 30 ml # Voids 1 Physical Exam gen: Speaking complete sentences, reporting abdominal discomfort, grimacing intermittently. heent: mmm lungs: cta cvs: no rub abd: bowel sounds diminished slightly, patient without peritoneal signs ext: no edema skin: no appreciable petechiae neuro: Awake and alert Labs/Diagnostic Data Labs/Diagnostic Data Laboratory Tests Test 03/21/24 18:00 03/21/24 13:55 03/21/24 10:50 Range/Units Stool Occult Blood Negative Negative Stool Occult Blood Sample #3 Negative Troponin I High Sensitivity 405 *H 438 *H </=54 ng/L Triglycerides Level 174 H < 150 mg/dL Cholesterol Level 183 < 200 mg/dL LDL Cholesterol 89 < 100 mg/dL HDL Cholesterol 61 H 40-59 mg/dL Thyroid Stimulating Hormone (TSH) 1.70 0.55-4.78 uIU/mL White Blood Count 16.0 H 4.4-10.8 10^3/uL Red Blood Count 5.18 4.5-5.90 10^6/uL Hemoglobin 12.0 L 13.5-17.5 g/dL Hematocrit 36.8 L 41.0-53.0 % Mean Corpuscular Volume 71.0 L 80.0-100.0 fL Mean Corpuscular Hemoglobin 23.1 L 28.0-32.0 pg Mean Corpuscular Hemoglobin Concent 32.6 32.0-36.0 g/dL Red Cell Distribution Width 16.9 H 11.8-14.3 % Platelet Count 201 140-450 10^3/uL Mean Platelet Volume 9.3 6.9-10.8 fL Neutrophils (%) (Auto) 84.5 H 37.0-80.0 % Lymphocytes (%) (Auto) 8.2 L 10.0-50.0 % Monocytes (%) (Auto) 7.1 0.0-12.0 % Eosinophils (%) (Auto) 0.0 0.0-7.0 % Basophils (%) (Auto) 0.2 0.0-2.0 % Neutrophils # (Auto) 13.5 H 1.6-8.6 10 ^3/uL Lymphocytes # (Auto) 1.3 0.4-5.4 10 ^3/uL Monocytes # (Auto) 1.1 0-1.3 10 ^3/uL Eosinophils # (Auto) 0 0-0.8 10 ^3/uL Basophils # (Auto) 0 0-0.2 10 ^3/uL Nucleated Red Blood Cells 0.4 % Platelet Estimate [place] Large Platelets Few Hypochromasia (manual) Slight Anisocytosis (manual) Slight Microcytosis Slight Prothrombin Time 11.9 H 9.3-11.8 sec Prothrombin Time INR 1.13 0.9-1.15 Activated Partial Thromboplast Time 26.5 24.5-34.5 SEC Sodium Level 138 136-145 mmol/L Potassium Level 3.8 3.5-5.1 mmol/L Chloride Level 93 L 98-107 mmol/L Carbon Dioxide Level 19 L 20-31 mmol/L Anion Gap 26 H 5-15 Blood Urea Nitrogen 78 H 9-23 mg/dL Creatinine 14.78 *H 0.700-1.30 mg/dL Glomerular Filtration Rate Calc 4 >90 mL/min BUN/Creatinine Ratio 5.3 L 10.0-20.0 Serum Glucose 110 H 74-106 mg/dL Calcium Level 9.3 8.7-10.4 mg/dL Total Bilirubin 0.4 0.2-1.0 mg/dL Aspartate Amino Transferase (AST) 36 13-40 U/L Alanine Aminotransferase (ALT) 16 7-40 U/L Alkaline Phosphatase 186 H 46-116 U/L Total Protein 9.9 H 5.7-8.2 g/dL Albumin 6.0 H 3.2-4.8 g/dL Lipase 41 12-53 U/L Assessment IMP: 1) ESRD on dialysis 2) abdominal pain - CT imaging notable for an umbilical hernia, no appreciable free air or signs of perforation. 3) anemia 4) hypertension 5) seizure disorder REC: - Dialysis 03/23 - No heparin - [facility] - Will continue follow as inpatient And evaluate daily for [employer] needs. Thank you for the consultation. Plan discussed with: Patient BENY MICHAUD MD Mar 22, 2024 17:10
[2024-03-22 19:27] LABS: Basophils # (auto) 0 10 ^3/uL (0-0.2); Eosinophils # (auto) 0 10 ^3/uL (0-0.8); Hematocrit 39.6 % (41.0-53.0); Hemoglobin 12.4 g/dL (13.5-17.5); Lymphocytes # (auto) 1.5 10 ^3/uL (0.4-5.4); Lymphocytes % (auto) 7.4 % (10.0-50.0); Mean Corpuscular Hemoglobin 23.3 pg (28.0-32.0); Mean Corpuscular Hgb Conc. 31.3 g/dL (32.0-36.0); Mean Corpuscular Volume 74.4 fL (80.0-100.0); Monocytes # (auto) 1.7 10 ^3/uL (0-1.3); Monocytes % (auto) 8.5 % (0.0-12.0); Neutrophils # (auto) 16.4 10 ^3/uL (1.6-8.6); Neutrophils % (auto) 84.1 % (37.0-80.0); Platelet Count (auto) 198 10^3/uL (140-450); Red Blood Cells 5.32 10^6/uL (4.5-5.90); Red Cell Distribution Width 17.3 % (11.8-14.3); White Blood Cell 19.6 10^3/uL (4.4-10.8)
[2024-03-22 19:37] LABS: Alanine Aminotransferase 25 U/L (7-40); Anion Gap 31 (5-15); Glucose 93 mg/dL (74-106)
[2024-03-22 20:05] LABS: Carbon Dioxide 13 mmol/L (20-31); Chloride 87 mmol/L (98-107); Potassium 5.5 mmol/L (3.5-5.1); Sodium 131 mmol/L (136-145)
[2024-03-22 20:06] LABS: Albumin 5.6 g/dL (3.2-4.8); Alkaline Phosphatase 184 U/L (46-116); Aspartate Aminotransferase 59 U/L (13-40); Bilirubin, Total 0.2 mg/dL (0.2-1.0); Calcium 7.2 mg/dL (8.7-10.4); Total Protein 9.1 g/dL (5.7-8.2)
[2024-03-22 20:08] LABS: Blood Urea Nitrogen 125 mg/dL (9-23)
[2024-03-22] MEDS: DOCUSATE SOD 100 MG CAP PO PRN (22:14)
[2024-03-22] MEDS: ATORVASTATIN 20 MG TAB PO SCH (22:14)
--- NOTE | 2024-03-22 22:20 | DVHINCON2 ---
Date Seen: Mar 22, 2024 Referring Physician Zuleika Reason for Consultation Elevated troponin History of Present Illness This is a 44-year-old male with PMH of HTN, COPD, HLD, HFpEF, ESRD on HD presents to the ED with complaints of abdominal pain and lower back pain with nausea and diarrhea. Patient also reports constipation for 3 days with some bright red blood noted when he tried to have a BM Upon evaluation in the ED, tr oponin noted to be elevated trending 438, 405. Patient after assessing did not note that he did have some chest pain that was substernal, nonradiating, sharp in nature, intermittent. EKG reviewed and shows sinus tachycardia at 100 beats per minute, no acute ST and T-wave abnormality, some early repolarization pattern noted anteriorly. Patient was admitted to the hospital. I am asked to consult on this patient. Family History: Colon cancer Grandfather Diabetes mellitus G8 MOTHER Hypertension G8 MOTHER Allergies: Coded Allergies: Shellfish Allergy (Verified Allergy, Unknown, 07/20/20) Home Meds Active Scripts Pantoprazole Sodium Sesquihydr (Pantoprazole Sodium) 40 Mg Tab, 40 MG PO DAILY, #30 TAB Prov:NANO COELHO MD 04/26/21 Sucralfate (CARAFATE) 1 Gm Tab, 1 GM OR QID for 14 Days, #56 TAB Prov:NANO COELHO MD 04/26/21 Ferrous Sulfate (Iron) 325 Mg Tab, 325 MG PO BID, #180 TAB Prov:NANO COELHO MD 04/26/21 Nifedipine (Nifedipine Er) 90 Mg Tab, 1 TAB PO DAILY, #90 TAB 1 Refill Prov:NANO COELHO MD 04/26/21 Naloxegol Oxalate (Movantik) 12.5 Mg Tab, 12.5 MG PO DAILY, #14 TAB Prov:YOLY GARCIA MD 07/21/20 Carvedilol (COREG) 12.5 Mg Tab, 12.5 MG PO BID, #60 TAB Prov:YOLY GARCIA MD 07/21/20 Albuterol Sulfate (VENTOLIN MDI) 90 Mcg Ih, 90 MCG IN Q6HPRN PRN, #1 INHALER Prov:YOLY GARCIA MD 07/21/20 Amlodipine Besylate (Amlodipine Besylate) 5 Mg Tab, 10 MG PO DAILY for 30 Days, #30 TAB Prov:YOLY GARCIA MD 07/21/20 Reported Medications Sevelamer Carbonate (Renvela) 800 Mg Tab, 2 TAB PO TID, #540 TAB 3 Refills 08/18/20 Albuterol Sulfate (Albuterol) 4 Mg Tab, IN, INHALER 07/20/20 Polyethylene Glycol (MIRALAX 17GM PWD) 17 Gm Pw, 17 GRAMS PO DAILY, #527 GRAMS 07/20/20 Omeprazole (Gnp Omeprazole) 20 Mg Tab, 40 MG PO, TAB 07/20/20 Clonidine Hydrochloride (Clonidine Hcl) 0.1 Mg Tab, 0.1 MG PO BID for 30 Days, MG 07/20/20 Hydrocodone-Acetaminophen (Hydrocodone/Acetaminophen 5-325 mg) 1 Tab Tab, 1 TAB PO Q8HPRN, TAB 07/20/20 Current Medications Current Medications Medications (Trade) Dose Ordered Sig/Ramila Route PRN Reason Start Time Stop Time Status Last Admin Atorvastatin Calcium (Lipitor) 10 mg HS PO 03/22/24 22:00 Piperacillin Sod/ Tazobactam Sod 100 ml @ 25 mls/hr Q12H IV 03/22/24 06:00 03/22/24 04:55 Pantoprazole Sodium (Protonix) 40 mg BID IV 03/21/24 22:00 03/21/24 23:30 Hydralazine HCl (Apresoline Injection) 10 mg Q6HP PRN IV SBP>150 03/21/24 23:45 03/22/24 08:49 Oxycodone/ Acetaminophen (Percocet 5/ 325MG Tablet) 2 tab Q6HP PRN PO SEVERE PAIN (7-10 PAIN SCALE) 03/22/24 15:00 03/22/24 14:54 Review of Systems Constitutional: No: Fever, Chills, Sweats, , Other positive: Weakness, Malaise Eyes: No: Pain, Vision change, Conjunctivae inflammation, Eyelid inflammation, Other, Redness ENT: No: Ear pain, Ear discharge, Nose pain, Nose discharge, Nose congestion, Mouth pain, Mouth swelling, Throat pain, Throat swelling, Other Respiratory: No: Cough, Dry, Shortness of breath, SOB with exertion, Wheezing, Hemoptysis, Pleuritic Pain, Sputum, Wheezing, Other Cardiovascular: ; No: Palpitations, Orthopnea, Paroxysmal Noc. Dyspnea, Edema, Lt Headedness, Other positive: Chest Pain Gastrointestinal: No: Nausea, Vomiting, , Hematochezia, Other positive: Ab dominal Pain, Diarrhea, Constipation, Melena Genitourinary: No Dysuria, No Frequency, No Incontinence, No Hematuria, No Retention, No Other Musculoskeletal: neck pain; No: other, shoulder pain, arm pain, hand pain, leg pain, foot pain positive: back pain, Skin: No: Rash, Lesions, Jaundice, Bruising, Other Neurological: Other (Dizziness, headache.); No: Weakness, Numbness, Incoordination, Change in speech, Confusion, Seizures Vital Signs Vital Signs Date Time Temp Pulse Resp B/P (MAP) Pulse Ox O2 Delivery O2 Flow Rate FiO2 03/22/24 16:45 97.7 67 17 159/88 (111) 93 97.7 03/22/24 10:00 Nasal Cannula 3.0 03/22/24 10:00 32 Physical Exam GENERAL: Awake, alert, oriented. Ill-appearing. LUNGS: Clear. CARDIOVASCULAR: Heart sounds are good. ABDOMEN: Soft. Labs/Diagnostic Data Labs Test 03/21/24 18:00 03/21/24 13:55 03/21/24 10:50 Range/Units Stool Occult Blood Negative Negative Stool Occult Blood Sample #3 Negative Troponin I High Sensitivity 405 *H </=54 ng/L Triglycerides Level 174 H < 150 mg/dL Cholesterol Level 183 < 200 mg/dL LDL Cholesterol 89 < 100 mg/dL HDL Cholesterol 61 H 40-59 mg/dL Thyroid Stimulating Hormone (TSH) 1.70 0.55-4.78 uIU/mL White Blood Count 16.0 H 4.4-10.8 10^3/uL Red Blood Count 5.18 4.5-5.90 10^6/uL Hemoglobin 12.0 L 13.5-17.5 g/dL Hematocrit 36.8 L 41.0-53.0 % Mean Corpuscular Volume 71.0 L 80.0-100.0 fL Mean Corpuscular Hemoglobin 23.1 L 28.0-32.0 pg Mean Corpuscular Hemoglobin Concent 32.6 32.0-36.0 g/dL Red Cell Distribution Width 16.9 H 11.8-14.3 % Platelet Count 201 140-450 10^3/uL Mean Platelet Volume 9.3 6.9-10.8 fL Neutrophils (%) (Auto) 84.5 H 37.0-80.0 % Lymphocytes (%) (Auto) 8.2 L 10.0-50.0 % Monocytes (%) (Auto) 7.1 0.0-12.0 % Eosinophils (%) (Auto) 0.0 0.0-7.0 % Basophils (%) (Auto) 0.2 0.0-2.0 % Neutrophils # (Auto) 13.5 H 1.6-8.6 10 ^3/uL Lymphocytes # (Auto) 1.3 0.4-5.4 10 ^3/uL Monocytes # (Auto) 1.1 0-1.3 10 ^3/uL Eosinophils # (Auto) 0 0-0.8 10 ^3/uL Basophils # (Auto) 0 0-0.2 10 ^3/uL Nucleated Red Blood Cells 0.4 % Platelet Estimate [place] Large Platelets Few Hypochromasia (manual) Slight Anisocytosis (manual) Slight Microcytosis Slight Prothrombin Time 11.9 H 9.3-11.8 sec Prothrombin Time INR 1.13 0.9-1.15 Activated Partial Thromboplast Time 26.5 24.5-34.5 SEC Sodium Level 138 136-145 mmol/L Potassium Level 3.8 3.5-5.1 mmol/L Chloride Level 93 L 98-107 mmol/L Carbon Dioxide Level 19 L 20-31 mmol/L Anion Gap 26 H 5-15 Blood Urea Nitrogen 78 H 9-23 mg/dL Creatinine 14.78 *H 0.700-1.30 mg/dL Glomerular Filtration Rate Calc 4 >90 mL/min BUN/Creatinine Ratio 5.3 L 10.0-20.0 Serum Glucose 110 H 74-106 mg/dL Calcium Level 9.3 8.7-10.4 mg/dL Total Bilirubin 0.4 0.2-1.0 mg/dL Aspartate Amino Transferase (AST) 36 13-40 U/L Alanine Aminotransferase (ALT) 16 7-40 U/L Alkaline Phosphatase 186 H 46-116 U/L Total Protein 9.9 H 5.7-8.2 g/dL Albumin 6.0 H 3.2-4.8 g/dL Lipase 41 12-53 U/L Assessment Elevated troponin. Atypical chest pain. Abdominal pain, lower back pain. Suspected GI bleed. ESRD on HD. Hypertensive urgency. Mild acute on chronic HFpEF. Plan/Recommendation I agree with your ongoing assessment and care of plan. Patient has been seen by Jasvir Gould NP on my behalf, him and I discussed the plan with the patient. Trend troponin. Continued blood pressure management. Follow up echo. Continue on statin. Patient not a candidate for continued ischemic workup at this time in setting of possible GI bleed. Ischemic workup likely outpatient once cleared by GI. Follow up GI recs. EKG negative for acute ischemic changes. HD per Nephrology. Additional plan as per the hospital course. Plan discussed with: Patient NYHA Physical activity limitations: Class2(Slight)fatigue,sob Date of Service: Mar 22, 2024 Billing Provider: PRAVEEN CASTRO MD Cardiology Common Codes: [id number] INP/OBS CARE (High), [id number] CARE 30-74 MIN PRAVEEN CASTRO MD Mar 22, 2024 18:12
[2024-03-23] VITALS (10 sets, daily range): BP systolic 90–201; BP diastolic 60–98; PULSE 75–102; RESP 17–20; TEMP 97–98.7; O2SAT 90–100
[2024-03-23] MEDS: LABETALOL HCL 20 MG/4 ML VL IV ONE (01:04)
[2024-03-23] MEDS ORDERED: SODIUM CHL 0.9% 1000 ML BAG XX ONE (07:00)
--- NOTE | 2024-03-23 13:31 | DVHPN2 ---
Reviewed: Care Plan, H&P, Labs, Medications, Previous Orders, Radiology Changes from previous H/P or p: No Changes Eyes: No Pain, No Vision change, No Conjunctivae inflammation, No Eyelid inflammation, No Other, No Redness ENT: No Ear pain, No Ear discharge, No Nose pain, No Nose discharge, No Nose congestion, No Mouth pain, No Mouth swelling, No Throat pain, No Throat swelling, No Other Cardiovascular: Chest Pain; No Palpitations, No Orthopnea, No Paroxysmal Noc. Dyspnea, No Edema, No Lt Headedness, No Other Respiratory: No Cough, No Dry, No Shortness of breath, No SOB with excertion, No Wheezing, No Hemoptysis, No Pleuritic Pain, No Sputum, No Other Gastrointestinal: Nausea, Vomiting, Abdominal Pain, Diarrhea, Constipation; No Melena; Hematochezia; No Other Genitourinary: No Dysuria, No Frequency, No Incontinence, No Hematuria, No Retention, No Other Musculoskeletal: No other, No neck pain, No shoulder pain, No arm pain, No back pain, No hand pain, No leg pain, No foot pain Skin: No Rash, No Lesions, No Jaundice, No Bruising, No Other Objective Vitals Vital Signs Date Time Temp Pulse Resp B/P (MAP) Pulse Ox O2 Delivery O2 Flow Rate FiO2 03/23/24 13:10 163/93 03/23/24 10:00 100 Nasal Cannula* 3 32 03/23/24 08:00 97.0 89 20 97.0 Intake/Output Intake and Output 03/23/24 07:00 Intake Total 200 ml Output Total 0 ml Balance 200 ml Intake Oral 0 ml IV Total 200 ml Output Urine Total 0 ml Medications Current Medications Medications Dose Ordered Sig/Ramila Route Start Time Stop Time Status Last Admin Dose Admin Albuterol 2.5 mg Q4HPRN PRN NEB 03/21/24 17:30 03/22/24 20:57 2.5 MG Ipratropium [place] 0.5 mg Q4HPRN PRN NEB 03/21/24 17:30 03/22/24 20:57 0.5 MG Acetaminophen 650 mg Q6HP PRN PO 03/21/24 17:30 03/22/24 11:22 650 MG Ondansetron HCl 4 mg Q4HP PRN IV 03/21/24 17:30 03/23/24 04:24 4 MG Nitroglycerin 0.4 mg Q5MINP PRN SL 03/21/24 17:30 Morphine Sulfate 2 mg Q30M PRN IV 03/21/24 17:30 03/21/24 20:45 2 MG Atorvastatin Calcium 10 mg HS PO 03/22/24 22:00 03/22/24 22:14 10 MG Piperacillin Sod/ Tazobactam Sod 100 ml @ 25 mls/hr Q12H IV 03/22/24 06:00 03/23/24 05:33 25 MLS/HR Pantoprazole Sodium 40 mg BID IV 03/21/24 22:00 03/23/24 09:13 40 MG Hydralazine HCl 10 mg Q6HP PRN IV 03/21/24 23:45 03/23/24 13:10 10 MG Oxycodone/ Acetaminophen 2 tab Q6HP PRN PO 03/22/24 15:00 03/23/24 04:25 2 TAB Docusate Sodium 100 mg BIDPRN PRN PO 03/22/24 22:00 03/22/24 22:14 100 MG Laboratory Results Laboratory Tests 03/22/24 19:01 Chemistry Test 03/22/24 19:01 Albumin 5.6 g/dL (3.2-4.8) H Calcium Level 7.2 mg/dL (8.7-10.4) L Total Protein 9.1 g/dL (5.7-8.2) H LFT Test 03/22/24 19:01 Alanine Aminotransferase (ALT) 25 U/L (7-40) Alkaline Phosphatase 184 U/L (46-116) H Aspartate Amino Transferase (AST) 59 U/L (13-40) H Total Bilirubin 0.2 mg/dL (0.2-1.0) Microbiology Microbiology Date/Time Source Procedure Growth Status 03/22/24 08:54 Nose MRSA Screen - Final Methicillin Resistant S.aureus Complete 03/21/24 19:42 Blood Blood Culture - Preliminary NO GROWTH AFTER 24 HOURS OF INCUBATION. Resulted Labs and/or images reviewed: Labs reviewed by me, Image(s) reviewed by me Assessment/Plan Assessment/Plan Intractable abdominal pain with melena: Rule out GI bleed, consult for Dr. Cisneros, myrna Desir Atypical chest pain rule out acute coronary syndrome cardiology consult appreciated ESRD on hemodialysis , Nephrology consult appreciated Sepsis Elevated creatinine Elevated liver function tests Uncontrolled hypertension Hypercholesterolemia COPD exacerbation Asthma Acute CHF exacerbation History of seizures History of TIA at the bedside Time spent 65 minutes Patient is full code Advanced care planning time 20 minutes Plan discussed with: Patient My Orders Orders - NANO COELHO MD Procedure Category Date Status Time * Gi [employer] CONS 03/22/24 Transmitted 13:29 Oxycodone W/ Acet PHA 03/22/24 In Process 5/325mg Tab (Percocet 15:00 Date of Service: Mar 23, 2024 Billing Provider: NANO COELHO MD Common Visit Codes: [id number] CARE 30-74 MIN NANO COELHO MD Mar 23, 2024 13:31
--- NOTE | 2024-03-23 13:46 | DVHPN2 ---
Progress Note Date Seen: Mar 23, 2024 Medical Necessity Reason Pt with a Central, PICC or Fol: No Subjective Patient reports: Feels better Objective vital signs Vital Sign Date Time Temp Pulse Resp B/P (MAP) Pulse Ox O2 Delivery O2 Flow Rate FiO2 03/23/24 13:10 163/93 03/23/24 10:00 100 Nasal Cannula* 3 32 03/23/24 08:00 97.0 89 20 97.0 Total Intake and Output 03/22/24 03/22/24 03/23/24 15:00 23:00 07:00 Intake Total 100 ml 100 ml 0 ml Output Total 0 ml Balance 100 ml 100 ml 0 ml medications Current Medications Medications Dose Ordered Sig/Ramila Route Start Time Stop Time Status Last Admin Dose Admin Albuterol 2.5 mg Q4HPRN PRN NEB 03/21/24 17:30 03/22/24 20:57 2.5 MG Ipratropium [place] 0.5 mg Q4HPRN PRN NEB 03/21/24 17:30 03/22/24 20:57 0.5 MG Acetaminophen 650 mg Q6HP PRN PO 03/21/24 17:30 03/22/24 11:22 650 MG Ondansetron HCl 4 mg Q4HP PRN IV 03/21/24 17:30 03/23/24 04:24 4 MG Nitroglycerin 0.4 mg Q5MINP PRN SL 03/21/24 17:30 Morphine Sulfate 2 mg Q30M PRN IV 03/21/24 17:30 03/21/24 20:45 2 MG Atorvastatin Calcium 10 mg HS PO 03/22/24 22:00 03/22/24 22:14 10 MG Piperacillin Sod/ Tazobactam Sod 100 ml @ 25 mls/hr Q12H IV 03/22/24 06:00 03/23/24 05:33 25 MLS/HR Pantoprazole Sodium 40 mg BID IV 03/21/24 22:00 03/23/24 09:13 40 MG Hydralazine HCl 10 mg Q6HP PRN IV 03/21/24 23:45 03/23/24 13:10 10 MG Oxycodone/ Acetaminophen 2 tab Q6HP PRN PO 03/22/24 15:00 03/23/24 04:25 2 TAB Docusate Sodium 100 mg BIDPRN PRN PO 03/22/24 22:00 03/22/24 22:14 100 MG Mupirocin 1 applic BID EACHNOSTRI 03/23/24 15:00 03/28/24 14:59 Examination: ABDOMEN:Abnormal laboratory and microbiology Laboratory Tests 03/22/24 19:01 Test 03/22/24 19:01 Range/Units Serum Glucose 93 74-106 mg/dL Microbiology Date/Time Source Procedure Growth Status 03/22/24 08:54 Nose MRSA Screen - Final Methicillin Resistant S.aureus Complete 03/21/24 19:42 Blood Blood Culture - Preliminary NO GROWTH AFTER 24 HOURS OF INCUBATION. Resulted Problem List/Assessment/Plan Problem List/Assessment/Plan ESRD HTN hyperkalemia metabolic acidosis abdomen pain HD today fluid removal 3L resume phos binders renal diet Plan discussed with: Patient My Orders My Orders Orders - OLI MORTON MD Procedure Category Date Status Time Basic Metabolic Panel LAB 03/24/24 Verified 04:00 Hemodialysis Orders ORDERS 03/23/24 Transmitted 13:41 Phosphorus LAB 03/24/24 Verified 04:00 Sevelamer (Renagel) PHA 03/23/24 Transmitted 18:00 OLI MORTON MD Mar 23, 2024 13:46
[2024-03-23] MEDS ORDERED: VANCOMYCIN PER PHARMACY 0 MG IV SCH (14:45)
--- NOTE | 2024-03-23 15:28 | DVH ---
EXAM: XY CHEST XRAY 1 VIEW Indication: SOB Technique: Single frontal view of the chest was obtained Comparison: CHEST PORTABLE on DOS: 01/07/22, CXRP on DOS: 01/07/22, CHEST PORTABLE on DOS: 04/24/21, C HEST PORTABLE on DOS: 02/09/21, CHEST PORTABLE on DOS: 12/14/20 FINDINGS: Lines and Tubes: None Lungs: No focal consolidation. Pleura: No effusion. No pneumothorax. Cardiomediastinal contours: Unremarkable Bones: No acute osseous abnormality. IMPRESSION: No acute cardiopulmonary disease.
[2024-03-23] MEDS: VANCOMYCIN 1GM/250ML KIT 250 ML IV ONE (16:48)
[2024-03-23] MEDS: MUPIROCIN 2% OINT 15gm or 22gm FOR MRSA NARES EACHNOSTRI SCH (16:48)
[2024-03-23] MEDS: SEVELAMER 800 MG TAB PO SCH (17:52)
[2024-03-23] MEDS: diphenhdrAMINE HCL 25 MG CAP PO ONE (23:16)
--- NOTE | 2024-03-23 23:50 | DVHPN2 ---
Progress Note - Dictate Date Seen: Mar 23, 2024 Medical Necessity Reason Pt with a Central, PICC or Fol: No Subjective Patient was seen and evaluated in follow up. Patient is complaining of abdominal pain, nausea and vomiting. Received HD today. MRSA + started on Bactroban. Echocardiogram is pending. Telemetry reviewed. vital signs Vital Sign Date Time Temp Pulse Resp B/P (MAP) Pulse Ox O2 Delivery O2 Flow Rate FiO2 03/23/24 21:48 100 Room Air* 0 21 03/23/24 21:00 98.7 93 17 169/91 (117) 98.7 Total Intake and Output 03/22/24 03/22/24 03/23/24 15:00 23:00 07:00 Intake Total 100 ml 100 ml 0 ml Output Total 0 ml Balance 100 ml 100 ml 0 ml medications Current Medications Medications Dose Ordered Sig/Ramila Route Start Time Stop Time Status Last Admin Dose Admin Albuterol 2.5 mg Q4HPRN PRN NEB 03/21/24 17:30 03/22/24 20:57 2.5 MG Ipratropium [place] 0.5 mg Q4HPRN PRN NEB 03/21/24 17:30 03/22/24 20:57 0.5 MG Acetaminophen 650 mg Q6HP PRN PO 03/21/24 17:30 03/22/24 11:22 650 MG Ondansetron HCl 4 mg Q4HP PRN IV 03/21/24 17:30 03/23/24 04:24 4 MG Nitroglycerin 0.4 mg Q5MINP PRN SL 03/21/24 17:30 Morphine Sulfate 2 mg Q30M PRN IV 03/21/24 17:30 03/21/24 20:45 2 MG Atorvastatin Calcium 10 mg HS PO 03/22/24 22:00 03/23/24 23:16 10 MG Piperacillin Sod/ Tazobactam Sod 100 ml @ 25 mls/hr Q12H IV 03/22/24 06:00 03/23/24 17:52 25 MLS/HR Pantoprazole Sodium 40 mg BID IV 03/21/24 22:00 03/23/24 09:13 40 MG Hydralazine HCl 10 mg Q6HP PRN IV 03/21/24 23:45 03/23/24 13:10 10 MG Oxycodone/ Acetaminophen 2 tab Q6HP PRN PO 03/22/24 15:00 03/23/24 23:17 2 TAB Docusate Sodium 100 mg BIDPRN PRN PO 03/22/24 22:00 03/22/24 22:14 100 MG Mupirocin 1 applic BID EACHNOSTRI 03/23/24 15:00 03/28/24 14:59 03/23/24 22:00 1 APPLIC Sevelamer HCl 1,600 mg TIDWM PO 03/23/24 18:00 03/23/24 17:52 1,600 MG Vancomycin HCl 0 ml @ 0 mls/hr UD IV 03/23/24 14:45 objective GENERAL: Awake, alert, oriented. Ill-appearing. LUNGS: Clear. CARDIOVASCULAR: Heart sounds are good. ABDOMEN: Soft. laboratory and microbiology Laboratory Tests 03/22/24 19:01 Test 03/22/24 19:01 Range/Units Serum Glucose 93 74-106 mg/dL Problem List Elevated troponin. Atypical chest pain. Abdominal pain, lower back pain. Suspected GI bleed. ESRD on HD. Hypertensive urgency. Mild acute on chronic HFpEF. Assessment/Plan Continued all current supportive medical care. Lipitor. IV Hydralazine for SBP > 150. Morphine and Oxycodone for pain management. Nitro SL. GI prophylactics. IV antibiotics as ordered. Additional plan as per the hospital course. Plan discussed with: Patient PRAVEEN CASTRO MD Mar 23, 2024 23:50
[2024-03-24] VITALS (15 sets, daily range): BP systolic 100–229; BP diastolic 49–109; PULSE 74–113; RESP 16–20; TEMP 97.7–98; O2SAT 95–100
[2024-03-24] MEDS: ONDANSETRON ODT 4 MG TAB PO ONE (04:35)
[2024-03-24] MEDS: cloNIDine HCL 0.1 MG TAB PO ONE (04:36)
[2024-03-24] MEDS: EPOETIN ALFA-EPBX 10,000 UNIT/1ML VIAL SC ONE (05:09)
[2024-03-24] MEDS: KETOROLAC TROMETH 60MG/2ML VIAL IM ONE (05:10)
--- NOTE | 2024-03-24 10:52 | DVHPN2 ---
Progress Note Date Seen: Mar 24, 2024 Medical Necessity Reason Pt with a Central, PICC or Fol: No Subjective Patient reports: Feels worse Objective vital signs Vital Sign Date Time Temp Pulse Resp B/P (MAP) Pulse Ox O2 Delivery O2 Flow Rate FiO2 03/24/24 10:04 99 Nasal Cannula 2.0 03/24/24 10:04 28 03/24/24 09:00 97.7 107 20 171/101 (124) 97.7 Total Intake and Output 03/23/24 03/23/24 03/24/24 15:00 23:00 07:00 Intake Total 710 ml 500 ml Balance 710 ml 500 ml medications Current Medications Medications Dose Ordered Sig/Ramila Route Start Time Stop Time Status Last Admin Dose Admin Albuterol 2.5 mg Q4HPRN PRN NEB 03/21/24 17:30 03/24/24 05:28 2.5 MG Ipratropium [place] 0.5 mg Q4HPRN PRN NEB 03/21/24 17:30 03/24/24 05:28 0.5 MG Acetaminophen 650 mg Q6HP PRN PO 03/21/24 17:30 03/22/24 11:22 650 MG Ondansetron HCl 4 mg Q4HP PRN IV 03/21/24 17:30 03/24/24 07:10 4 MG Nitroglycerin 0.4 mg Q5MINP PRN SL 03/21/24 17:30 Morphine Sulfate 2 mg Q30M PRN IV 03/21/24 17:30 03/24/24 06:18 2 MG Atorvastatin Calcium 10 mg HS PO 03/22/24 22:00 03/23/24 23:16 10 MG Piperacillin Sod/ Tazobactam Sod 100 ml @ 25 mls/hr Q12H IV 03/22/24 06:00 03/24/24 06:26 25 MLS/HR Pantoprazole Sodium 40 mg BID IV 03/21/24 22:00 03/24/24 08:34 40 MG Hydralazine HCl 10 mg Q6HP PRN IV 03/21/24 23:45 03/24/24 08:35 10 MG Oxycodone/ Acetaminophen 2 tab Q6HP PRN PO 03/22/24 15:00 03/24/24 05:30 2 TAB Docusate Sodium 100 mg BIDPRN PRN PO 03/22/24 22:00 03/22/24 22:14 100 MG Mupirocin 1 applic BID EACHNOSTRI 03/23/24 15:00 03/28/24 14:59 03/24/24 08:36 1 APPLIC Sevelamer HCl 1,600 mg TIDWM PO 03/23/24 18:00 03/24/24 08:35 1,600 MG Vancomycin HCl 0 ml @ 0 mls/hr UD IV 03/23/24 14:45 Examination: GENERAL:Abnormal, CVS:Abnormal, ABDOMEN:Abnormal laboratory and microbiology Laboratory Tests 03/22/24 19:01 Test 03/22/24 19:01 Range/Units Serum Glucose 93 74-106 mg/dL Microbiology Date/Time Source Procedure Growth Status 03/22/24 08:54 Nose MRSA Screen - Final Methicillin Resistant S.aureus Complete 03/21/24 19:42 Blood Blood Culture - Preliminary NO GROWTH AFTER 48 HOURS OF INCUBATION. Resulted Problem List/Assessment/Plan Problem List/Assessment/Plan ESRD HTN hyperkalemia metabolic acidosis abdomen pain HD yesterday, had severe nausea last night. BP very high yesterday and today refusing labs and IV access today oral BP meds nifedpine , coreg, hydralazine started today nausea meds phos binders renal diet Plan discussed with: Patient My Orders My Orders Orders - OLI MORTON MD Procedure Category Date Status Time Hemodialysis Orders ORDERS 03/23/24 Transmitted 13:41 Sevelamer ([place]) PHA 03/23/24 In Process 18:00 Nifedipine Er PHA 03/24/24 Verified (Procardia Xl 11:00 Carvedilol Tablet PHA 03/24/24 Verified (Coreg Tablet) 11:00 Hydralazine Hcl PHA 03/24/24 Verified Tablet (Apresoline 12:00 OLI MORTON MD Mar 24, 2024 10:52
[2024-03-24] MEDS: NIFEdipine ER 30 MG TAB PO SCH (11:35)
[2024-03-24] MEDS: hydrALAZINE HCL 25 MG TAB PO SCH (11:36)
[2024-03-24] MEDS: CARVEDILOL 12.5 MG TAB PO SCH (11:36)
--- NOTE | 2024-03-24 12:53 | DVHPN2 ---
Reviewed: Care Plan, H&P, Labs, Medications, Previous Orders, Radiology Changes from previous H/P or p: No Changes Eyes: No Pain, No Vision change, No Conjunctivae inflammation, No Eyelid inflammation, No Other, No Redness ENT: No Ear pain, No Ear discharge, No Nose pain, No Nose discharge, No Nose congestion, No Mouth pain, No Mouth swelling, No Throat pain, No Throat swelling, No Other Cardiovascular: Chest Pain; No Palpitations, No Orthopnea, No Paroxysmal Noc. Dyspnea, No Edema, No Lt Headedness, No Other Respiratory: No Cough, No Dry, No Shortness of breath, No SOB with excertion, No Wheezing, No Hemoptysis, No Pleuritic Pain, No Sputum, No Other Gastrointestinal: Nausea, Vomiting, Abdominal Pain, Diarrhea, Constipation; No Melena; Hematochezia; No Other Genitourinary: No Dysuria, No Frequency, No Incontinence, No Hematuria, No Retention, No Other Musculoskeletal: No other, No neck pain, No shoulder pain, No arm pain, No back pain, No hand pain, No leg pain, No foot pain Skin: No Rash, No Lesions, No Jaundice, No Bruising, No Other Objective Vitals Vital Signs Date Time Temp Pulse Resp B/P (MAP) Pulse Ox O2 Delivery O2 Flow Rate FiO2 03/24/24 12:38 118 148/96 03/24/24 10:04 99 Nasal Cannula 2.0 03/24/24 10:04 28 03/24/24 09:00 97.7 20 97.7 Intake/Output Intake and Output 03/24/24 07:00 Intake Total 1210 ml Balance 1210 ml Intake Oral 860 ml IV Total 350 ml Medications Current Medications Medications Dose Ordered Sig/Ramila Route Start Time Stop Time Status Last Admin Dose Admin Albuterol 2.5 mg Q4HPRN PRN NEB 03/21/24 17:30 03/24/24 05:28 2.5 MG Ipratropium [place] 0.5 mg Q4HPRN PRN NEB 03/21/24 17:30 03/24/24 05:28 0.5 MG Acetaminophen 650 mg Q6HP PRN PO 03/21/24 17:30 03/22/24 11:22 650 MG Ondansetron HCl 4 mg Q4HP PRN IV 03/21/24 17:30 03/24/24 07:10 4 MG Nitroglycerin 0.4 mg Q5MINP PRN SL 03/21/24 17:30 Morphine Sulfate 2 mg Q30M PRN IV 03/21/24 17:30 03/24/24 06:18 2 MG Atorvastatin Calcium 10 mg HS PO 03/22/24 22:00 03/23/24 23:16 10 MG Piperacillin Sod/ Tazobactam Sod 100 ml @ 25 mls/hr Q12H IV 03/22/24 06:00 03/24/24 06:26 25 MLS/HR Pantoprazole Sodium 40 mg BID IV 03/21/24 22:00 03/24/24 08:34 40 MG Hydralazine HCl 10 mg Q6HP PRN IV 03/21/24 23:45 03/24/24 08:35 10 MG Oxycodone/ Acetaminophen 2 tab Q6HP PRN PO 03/22/24 15:00 03/24/24 11:37 2 TAB Docusate Sodium 100 mg BIDPRN PRN PO 03/22/24 22:00 03/22/24 22:14 100 MG Mupirocin 1 applic BID EACHNOSTRI 03/23/24 15:00 03/28/24 14:59 03/24/24 08:36 1 APPLIC Sevelamer HCl 1,600 mg TIDWM PO 03/23/24 18:00 03/24/24 08:35 1,600 MG Vancomycin HCl 0 ml @ 0 mls/hr UD IV 03/23/24 14:45 Nifedipine 90 mg DAILY PO 03/24/24 11:00 03/24/24 11:35 90 MG Carvedilol 25 mg Q12HR PO 03/24/24 11:00 03/24/24 11:36 25 MG Hydralazine HCl 25 mg Q6HR PO 03/24/24 12:00 03/24/24 11:36 25 MG Laboratory Results Laboratory Tests 03/22/24 19:01 Microbiology Microbiology Date/Time Source Procedure Growth Status 03/22/24 08:54 Nose MRSA Screen - Final Methicillin Resistant S.aureus Complete 03/21/24 19:42 Blood Blood Culture - Preliminary NO GROWTH AFTER 48 HOURS OF INCUBATION. Resulted Labs and/or images reviewed: Labs reviewed by me, Image(s) reviewed by me Assessment/Plan Assessment/Plan Intractable abdominal pain with melena: CT abdomen pelvis without contrast negative GI consult appreciated Atypical chest pain rule out acute coronary syndrome cardiology consult appreciated ESRD on hemodialysis , Nephrology consult appreciated Sepsis Elevated creatinine Elevated liver function tests Uncontrolled hypertension Hypercholesterolemia COPD exacerbation Asthma Acute CHF exacerbation History of seizures History of TIA Chronic pain syndrome: Patient says Dilaudid only medication that works for him, DC Percocet start Dilaudid 2 mg IV q.4 hr at the bedside Time spent 65 minutes Patient is full code Advanced care planning time 20 minutes Plan discussed with: Patient My Orders Orders - NANO COELHO MD Procedure Category Date Status Time Mupirocin 2% Oint PHA 03/23/24 In Process Mrsa Nares (Bactroban 15:00 Chest Xray 1 View XY 03/23/24 Resulted 13:37 Blood Culture TORIE 03/23/24 In Process 13:37 Urine Bacterial TORIE 03/23/24 Logged Culture 13:37 Complete Blood Count LAB 03/24/24 Logged 04:00 Complete Blood Count LAB 03/25/24 Verified 04:00 Complete Blood Count LAB 03/26/24 Verified 04:00 Complete Blood Count LAB 03/27/24 Verified 04:00 Complete Blood Count LAB 03/28/24 Verified 04:00 Comprehensive LAB 03/24/24 Logged Metabolic Panel 04:00 Comprehensive LAB 03/25/24 Verified Metabolic Panel 04:00 Comprehensive LAB 03/26/24 Verified Metabolic Panel 04:00 Comprehensive LAB 03/27/24 Verified Metabolic Panel 04:00 Comprehensive LAB 03/28/24 Verified Metabolic Panel 04:00 Renal DIET 03/23/24 Transmitted Standard(2gna,3gk,Lopho) Dinner Vancomycin Per PHA 03/23/24 In Process Pharmacy 14:45 Insert Midline ORDERS 03/23/24 Transmitted 18:30 Phosphorus LAB 03/24/24 Logged 04:00 Date of Service: Mar 24, 2024 Billing Provider: NANO COELHO MD Common Visit Codes: [id number] INP/OBS CARE(HIGH) NANO COELHO MD Mar 24, 2024 12:53
[2024-03-24 13:36] LABS: Basophils # (auto) 0 10 ^3/uL (0-0.2); Basophils % (auto) 0.1 % (0.0-2.0); Eosinophils # (auto) 0 10 ^3/uL (0-0.8); Hemoglobin 11.1 g/dL (13.5-17.5); White Blood Cell 12.9 10^3/uL (4.4-10.8)
[2024-03-24 13:38] LABS: Hematocrit 34.6 % (41.0-53.0); Lymphocytes % (auto) 7.8 % (10.0-50.0); Mean Corpuscular Hemoglobin 22.9 pg (28.0-32.0); Mean Corpuscular Hgb Conc. 32.1 g/dL (32.0-36.0); Mean Corpuscular Volume 71.3 fL (80.0-100.0); Monocytes # (auto) 1.1 10 ^3/uL (0-1.3); Monocytes % (auto) 8.6 % (0.0-12.0); Neutrophils # (auto) 10.8 10 ^3/uL (1.6-8.6); Neutrophils % (auto) 83.5 % (37.0-80.0); Nucleated Red Blood Cells % 0.1 %; Platelet Count (auto) 191 10^3/uL (140-450); Red Blood Cells 4.85 10^6/uL (4.5-5.90); Red Cell Distribution Width 16.6 % (11.8-14.3)
[2024-03-24 13:52] LABS: Alanine Aminotransferase 22 U/L (7-40); Anion Gap 19 (5-15); BUN/Creatinine Ratio 5.4 (10.0-20.0); Carbon Dioxide 26 mmol/L (20-31); Potassium 3.8 mmol/L (3.5-5.1)
[2024-03-24] MEDS: HYDROmorphone HCL 2 MG/ML VL/or syr IV PRN (13:52)
[2024-03-24 13:53] LABS: Total Protein 7.9 g/dL (5.7-8.2)
[2024-03-24 14:08] LABS: Alkaline Phosphatase 144 U/L (46-116); Aspartate Aminotransferase 44 U/L (13-40); Bilirubin, Total 0.2 mg/dL (0.2-1.0); Blood Urea Nitrogen 69 mg/dL (9-23); Calcium 6.7 mg/dL (8.7-10.4); Chloride 90 mmol/L (98-107); Glucose 151 mg/dL (74-106); Phosphorus 6.8 mg/dL (2.4-5.1); Sodium 135 mmol/L (136-145)
--- NOTE | 2024-03-24 22:08 | DVHPN2 ---
Progress Note - Dictate Date Seen: Mar 24, 2024 Medical Necessity Reason Pt with a Central, PICC or Fol: No Subjective Patient was seen and evaluated in follow up. Patient reports feeling worse today. Patient hypertensive this morning, received antihypertensive with improvement. WBC 12.9, L 90, BUN 69, Comb Winder 12.75. Echocardiogram is pending. Telemetry reviewed. vital signs Vital Sign Date Time Temp Pulse Resp B/P (MAP) Pulse Ox O2 Delivery O2 Flow Rate FiO2 03/24/24 21:56 66 18 135/71 03/24/24 21:00 97.8 99 97.8 03/24/24 20:25 Room Air 0.0 03/24/24 20:25 N/A Total Intake and Output 03/23/24 03/23/24 03/24/24 15:00 23:00 07:00 Intake Total 710 ml 500 ml Balance 710 ml 500 ml medications Current Medications Medications Dose Ordered Sig/Ramila Route Start Time Stop Time Status Last Admin Dose Admin Albuterol 2.5 mg Q4HPRN PRN NEB 03/21/24 17:30 03/24/24 05:28 2.5 MG Ipratropium [place] 0.5 mg Q4HPRN PRN NEB 03/21/24 17:30 03/24/24 05:28 0.5 MG Acetaminophen 650 mg Q6HP PRN PO 03/21/24 17:30 03/22/24 11:22 650 MG Ondansetron HCl 4 mg Q4HP PRN IV 03/21/24 17:30 03/24/24 07:10 4 MG Nitroglycerin 0.4 mg Q5MINP PRN SL 03/21/24 17:30 Morphine Sulfate 2 mg Q30M PRN IV 03/21/24 17:30 03/24/24 06:18 2 MG Atorvastatin Calcium 10 mg HS PO 03/22/24 22:00 03/23/24 23:16 10 MG Piperacillin Sod/ Tazobactam Sod 100 ml @ 25 mls/hr Q12H IV 03/22/24 06:00 03/24/24 17:39 25 MLS/HR Pantoprazole Sodium 40 mg BID IV 03/21/24 22:00 03/24/24 08:34 40 MG Hydralazine HCl 10 mg Q6HP PRN IV 03/21/24 23:45 03/24/24 08:35 10 MG Docusate Sodium 100 mg BIDPRN PRN PO 03/22/24 22:00 03/22/24 22:14 100 MG Mupirocin 1 applic BID EACHNOSTRI 03/23/24 15:00 03/28/24 14:59 03/24/24 08:36 1 APPLIC Sevelamer HCl 1,600 mg TIDWM PO 03/23/24 18:00 03/24/24 08:35 1,600 MG Vancomycin HCl 0 ml @ 0 mls/hr UD IV 03/23/24 14:45 Nifedipine 90 mg DAILY PO 03/24/24 11:00 03/24/24 11:35 90 MG Carvedilol 25 mg Q12HR PO 03/24/24 11:00 03/24/24 11:36 25 MG Hydralazine HCl 25 mg Q6HR PO 03/24/24 12:00 03/24/24 11:36 25 MG Hydromorphone HCl 2 mg Q4HPRN PRN IV 03/24/24 13:00 03/24/24 21:56 2 MG objective GENERAL: Awake, alert, oriented. Ill-appearing. LUNGS: Clear. CARDIOVASCULAR: Heart sounds are good. ABDOMEN: Soft. laboratory and microbiology Laboratory Tests 03/24/24 13:23 Test 03/24/24 13:23 Range/Units Serum Glucose 151 H 74-106 mg/dL Problem List Elevated troponin. Atypical chest pain. Abdominal pain, lower back pain. Suspected GI bleed. ESRD on HD. Hypertensive urgency. Mild acute on chronic HFpEF. Assessment/Plan Continued all current supportive medical care. Lipitor. Coreg, Hydralazine, Nifedipine. Dilaudid for pain management. IV Hydralazine for SBP > 150. Nitro SL. GI prophylactics. IV antibiotics as ordered. Additional plan as per the hospital course. Plan discussed with: Patient PRAVEEN CASTRO MD Mar 24, 2024 22:08
[2024-03-25] VITALS (11 sets, daily range): BP systolic 100–146; BP diastolic 59–84; PULSE 71–101; RESP 15–22; TEMP 97.6–98.9; O2SAT 96–100
--- NOTE | 2024-03-25 10:59 | DVHPN2 ---
Reviewed: Care Plan, H&P, Labs, Medications, Previous Orders, Radiology Changes from previous H/P or p: No Changes Eyes: No Pain, No Vision change, No Conjunctivae inflammation, No Eyelid inflammation, No Other, No Redness ENT: No Ear pain, No Ear discharge, No Nose pain, No Nose discharge, No Nose congestion, No Mouth pain, No Mouth swelling, No Throat pain, No Throat swelling, No Other Cardiovascular: Chest Pain; No Palpitations, No Orthopnea, No Paroxysmal Noc. Dyspnea, No Edema, No Lt Headedness, No Other Respiratory: No Cough, No Dry, No Shortness of breath, No SOB with excertion, No Wheezing, No Hemoptysis, No Pleuritic Pain, No Sputum, No Other Gastrointestinal: Nausea, Vomiting, Abdominal Pain, Diarrhea, Constipation; No Melena; Hematochezia; No Other Genitourinary: No Dysuria, No Frequency, No Incontinence, No Hematuria, No Retention, No Other Musculoskeletal: No other, No neck pain, No shoulder pain, No arm pain, No back pain, No hand pain, No leg pain, No foot pain Skin: No Rash, No Lesions, No Jaundice, No Bruising, No Other Objective Vitals Vital Signs Date Time Temp Pulse Resp B/P (MAP) Pulse Ox O2 Delivery O2 Flow Rate FiO2 03/25/24 09:54 99 Room Air 0.0 03/25/24 09:54 N/A 03/25/24 08:42 98.1 78 18 108/65 (79) 98.1 Intake/Output Intake and Output 03/25/24 07:00 Intake Total 965 ml Output Total 900 ml Balance 65 ml Intake Oral 840 ml IV Total 125 ml Output Urine Total 900 ml # Bowel Movements 1 Medications Current Medications Medications Dose Ordered Sig/Ramila Route Start Time Stop Time Status Last Admin Dose Admin Albuterol 2.5 mg Q4HPRN PRN NEB 03/21/24 17:30 03/24/24 05:28 2.5 MG Ipratropium [place] 0.5 mg Q4HPRN PRN NEB 03/21/24 17:30 03/24/24 05:28 0.5 MG Acetaminophen 650 mg Q6HP PRN PO 03/21/24 17:30 03/22/24 11:22 650 MG Ondansetron HCl 4 mg Q4HP PRN IV 03/21/24 17:30 03/24/24 07:10 4 MG Nitroglycerin 0.4 mg Q5MINP PRN SL 03/21/24 17:30 Morphine Sulfate 2 mg Q30M PRN IV 03/21/24 17:30 03/24/24 06:18 2 MG Atorvastatin Calcium 10 mg HS PO 03/22/24 22:00 03/24/24 22:11 10 MG Piperacillin Sod/ Tazobactam Sod 100 ml @ 25 mls/hr Q12H IV 03/22/24 06:00 03/25/24 07:11 25 MLS/HR Pantoprazole Sodium 40 mg BID IV 03/21/24 22:00 03/25/24 08:36 40 MG Hydralazine HCl 10 mg Q6HP PRN IV 03/21/24 23:45 03/24/24 08:35 10 MG Docusate Sodium 100 mg BIDPRN PRN PO 03/22/24 22:00 03/22/24 22:14 100 MG Mupirocin 1 applic BID EACHNOSTRI 03/23/24 15:00 03/28/24 14:59 03/25/24 08:36 1 APPLIC Sevelamer HCl 1,600 mg TIDWM PO 03/23/24 18:00 03/24/24 08:35 1,600 MG Vancomycin HCl 0 ml @ 0 mls/hr UD IV 03/23/24 14:45 Nifedipine 90 mg DAILY PO 03/24/24 11:00 03/24/24 11:35 90 MG Carvedilol 25 mg Q12HR PO 03/24/24 11:00 03/24/24 22:10 25 MG Hydralazine HCl 25 mg Q6HR PO 03/24/24 12:00 03/24/24 11:36 25 MG Hydromorphone HCl 2 mg Q4HPRN PRN IV 03/24/24 13:00 03/25/24 07:11 2 MG Laboratory Results Laboratory Tests 03/24/24 13:23 Chemistry Test 03/24/24 13:23 Albumin 5.0 g/dL (3.2-4.8) H Calcium Level 6.7 mg/dL (8.7-10.4) L Phosphorus Level 6.8 mg/dL (2.4-5.1) H Total Protein 7.9 g/dL (5.7-8.2) LFT Test 03/24/24 13:23 Alanine Aminotransferase (ALT) 22 U/L (7-40) Alkaline Phosphatase 144 U/L (46-116) H Aspartate Amino Transferase (AST) 44 U/L (13-40) H Total Bilirubin 0.2 mg/dL (0.2-1.0) Microbiology Microbiology Date/Time Source Procedure Growth Status 03/23/24 14:44 Blood Blood Culture - Preliminary NO GROWTH AFTER 24 HOURS OF INCUBATION. Resulted 03/22/24 08:54 Nose MRSA Screen - Final Methicillin Resistant S.aureus Complete Labs and/or images reviewed: Labs reviewed by me, Image(s) reviewed by me Assessment/Plan Assessment/Plan Intractable abdominal pain with melena: CT abdomen pelvis without contrast negative GI consult appreciated Atypical chest pain rule out acute coronary syndrome cardiology consult appreciated ESRD on hemodialysis , Nephrology consult appreciated Sepsis Elevated creatinine Elevated liver function tests Uncontrolled hypertension Hypercholesterolemia MRSA screen positive: Bactroban nasal ointment COPD exacerbation Asthma Acute CHF exacerbation History of seizures History of TIA Chronic pain syndrome: Patient says Dilaudid only medication that works for him, DC Percocet start Dilaudid 2 mg IV q.4 hr at the bedside Time spent 65 minutes Patient is full code Plan discussed with: Patient My Orders Orders - NANO COELHO MD Procedure Category Date Status Time Hydromorphone PHA 03/24/24 In Process Injection (Dilaudid 13:00 Date of Service: Mar 25, 2024 Billing Provider: NANO COELHO MD Common Visit Codes: [id number] CARE 30-74 MIN NANO COELHO MD Mar 25, 2024 10:59
[2024-03-25 14:47] LABS: Alanine Aminotransferase 20 U/L (7-40); Albumin 4.6 g/dL (3.2-4.8); Anion Gap 18 (5-15); Aspartate Aminotransferase 34 U/L (13-40); BUN/Creatinine Ratio 4.9 (10.0-20.0); Carbon Dioxide 24 mmol/L (20-31); Potassium 3.8 mmol/L (3.5-5.1); Total Protein 7.6 g/dL (5.7-8.2)
[2024-03-25 14:51] LABS: Alkaline Phosphatase 132 U/L (46-116); Bilirubin, Total 0.2 mg/dL (0.2-1.0); Blood Urea Nitrogen 71 mg/dL (9-23); Calcium 6.4 mg/dL (8.7-10.4); Chloride 87 mmol/L (98-107); Glucose 143 mg/dL (74-106); Sodium 129 mmol/L (136-145)
[2024-03-25 16:05] LABS: Basophils # (auto) 0 10 ^3/uL (0-0.2); Basophils % (auto) 0.1 % (0.0-2.0); Eosinophils # (auto) 0.1 10 ^3/uL (0-0.8); Eosinophils % (auto) 0.5 % (0.0-7.0); Lymphocytes # (auto) 1.2 10 ^3/uL (0.4-5.4); Nucleated Red Blood Cells % 0.1 %; Red Blood Cells 4.95 10^6/uL (4.5-5.90); Red Cell Distribution Width 16.6 % (11.8-14.3)
[2024-03-25 16:07] LABS: Hematocrit 35.9 % (41.0-53.0); Hemoglobin 11.4 g/dL (13.5-17.5); Lymphocytes % (auto) 6.9 % (10.0-50.0); Mean Corpuscular Hgb Conc. 31.8 g/dL (32.0-36.0); Mean Corpuscular Volume 72.4 fL (80.0-100.0); Monocytes % (auto) 10.9 % (0.0-12.0); Neutrophils # (auto) 14.8 10 ^3/uL (1.6-8.6); Neutrophils % (auto) 81.6 % (37.0-80.0); Platelet Count (auto) 190 10^3/uL (140-450); White Blood Cell 18.1 10^3/uL (4.4-10.8)
--- NOTE | 2024-03-25 16:36 | DVHPN2 ---
Progress Note Date Seen: Mar 25, 2024 Medical Necessity Reason Pt with a Central, PICC or Fol: No Subjective Patient reports: No new complaints Objective vital signs Vital Sign Date Time Temp Pulse Resp B/P (MAP) Pulse Ox O2 Delivery O2 Flow Rate FiO2 03/25/24 14:46 84 18 106/64 03/25/24 12:51 98.1 99 98.1 03/25/24 11:01 Room Air* 0 21 Total Intake and Output 03/24/24 03/24/24 03/25/24 15:00 23:00 07:00 Intake Total 100 ml 265 ml 600 ml Output Total 900 ml Balance 100 ml 265 ml -300 ml medications Current Medications Medications Dose Ordered Sig/Ramila Route Start Time Stop Time Status Last Admin Dose Admin Albuterol 2.5 mg Q4HPRN PRN NEB 03/21/24 17:30 03/25/24 11:01 2.5 MG Ipratropium [place] 0.5 mg Q4HPRN PRN NEB 03/21/24 17:30 03/25/24 11:01 0.5 MG Acetaminophen 650 mg Q6HP PRN PO 03/21/24 17:30 03/22/24 11:22 650 MG Ondansetron HCl 4 mg Q4HP PRN IV 03/21/24 17:30 03/24/24 07:10 4 MG Nitroglycerin 0.4 mg Q5MINP PRN SL 03/21/24 17:30 Morphine Sulfate 2 mg Q30M PRN IV 03/21/24 17:30 03/24/24 06:18 2 MG Atorvastatin Calcium 10 mg HS PO 03/22/24 22:00 03/24/24 22:11 10 MG Piperacillin Sod/ Tazobactam Sod 100 ml @ 25 mls/hr Q12H IV 03/22/24 06:00 03/25/24 07:11 25 MLS/HR Pantoprazole Sodium 40 mg BID IV 03/21/24 22:00 03/25/24 08:36 40 MG Hydralazine HCl 10 mg Q6HP PRN IV 03/21/24 23:45 03/24/24 08:35 10 MG Docusate Sodium 100 mg BIDPRN PRN PO 03/22/24 22:00 03/22/24 22:14 100 MG Mupirocin 1 applic BID EACHNOSTRI 03/23/24 15:00 03/28/24 14:59 03/25/24 08:36 1 APPLIC Sevelamer HCl 1,600 mg TIDWM PO 03/23/24 18:00 03/24/24 08:35 1,600 MG Vancomycin HCl 0 ml @ 0 mls/hr UD IV 03/23/24 14:45 Nifedipine 90 mg DAILY PO 03/24/24 11:00 03/24/24 11:35 90 MG Carvedilol 25 mg Q12HR PO 03/24/24 11:00 03/24/24 22:10 25 MG Hydralazine HCl 25 mg Q6HR PO 03/24/24 12:00 03/24/24 11:36 25 MG Hydromorphone HCl 2 mg Q4HPRN PRN IV 03/24/24 13:00 03/25/24 12:56 2 MG Examination: GENERAL:Abnormal, ABDOMEN:Abnormal laboratory and microbiology Laboratory Tests 03/25/24 14:00 Test 03/25/24 14:00 Range/Units Serum Glucose 143 H 74-106 mg/dL Microbiology Date/Time Source Procedure Growth Status 03/23/24 14:44 Blood Blood Culture - Preliminary NO GROWTH AFTER 48 HOURS OF INCUBATION. Resulted 03/22/24 08:54 Nose MRSA Screen - Final Methicillin Resistant S.aureus Complete Problem List/Assessment/Plan Problem List/Assessment/Plan ESRD HTN hyperkalemia metabolic acidosis abdomen pain HD oral BP meds nifedipine , coreg, hydralazine s nausea meds phos binders renal diet Plan discussed with: Patient My Orders My Orders Orders - OLI MORTON MD Procedure Category Date Status Time Hemodialysis Orders ORDERS 03/25/24 Transmitted 04:00 OLI MORTON MD Mar 25, 2024 16:36
--- NOTE | 2024-03-25 19:02 | DVHPN2 ---
Progress Note - Dictate Date Seen: Mar 25, 2024 Medical Necessity Reason Pt with a Central, PICC or Fol: No Subjective Patient was seen and evaluated in follow up. No overnight events. Patient is scheduled for HD today. Per bedside RN, patient wishes to change his PCP. WBC 18.1, NA 129, BUN 71, Senior Executive Assistant 14.54. Telemetry reviewed. vital signs Vital Sign Date Time Temp Pulse Resp B/P (MAP) Pulse Ox O2 Delivery O2 Flow Rate FiO2 03/25/24 12:56 80 19 104/62 03/25/24 12:51 98.1 99 98.1 03/25/24 11:01 Room Air* 0 21 Total Intake and Output 03/24/24 03/24/24 03/25/24 15:00 23:00 07:00 Intake Total 100 ml 265 ml 600 ml Output Total 900 ml Balance 100 ml 265 ml -300 ml medications Current Medications Medications Dose Ordered Sig/Ramila Route Start Time Stop Time Status Last Admin Dose Admin Albuterol 2.5 mg Q4HPRN PRN NEB 03/21/24 17:30 03/25/24 11:01 2.5 MG Ipratropium [place] 0.5 mg Q4HPRN PRN NEB 03/21/24 17:30 03/25/24 11:01 0.5 MG Acetaminophen 650 mg Q6HP PRN PO 03/21/24 17:30 03/22/24 11:22 650 MG Ondansetron HCl 4 mg Q4HP PRN IV 03/21/24 17:30 03/24/24 07:10 4 MG Nitroglycerin 0.4 mg Q5MINP PRN SL 03/21/24 17:30 Morphine Sulfate 2 mg Q30M PRN IV 03/21/24 17:30 03/24/24 06:18 2 MG Atorvastatin Calcium 10 mg HS PO 03/22/24 22:00 03/24/24 22:11 10 MG Piperacillin Sod/ Tazobactam Sod 100 ml @ 25 mls/hr Q12H IV 03/22/24 06:00 03/25/24 07:11 25 MLS/HR Pantoprazole Sodium 40 mg BID IV 03/21/24 22:00 03/25/24 08:36 40 MG Hydralazine HCl 10 mg Q6HP PRN IV 03/21/24 23:45 03/24/24 08:35 10 MG Docusate Sodium 100 mg BIDPRN PRN PO 03/22/24 22:00 03/22/24 22:14 100 MG Mupirocin 1 applic BID EACHNOSTRI 03/23/24 15:00 03/28/24 14:59 03/25/24 08:36 1 APPLIC Sevelamer HCl 1,600 mg TIDWM PO 03/23/24 18:00 03/24/24 08:35 1,600 MG Vancomycin HCl 0 ml @ 0 mls/hr UD IV 03/23/24 14:45 Nifedipine 90 mg DAILY PO 03/24/24 11:00 03/24/24 11:35 90 MG Carvedilol 25 mg Q12HR PO 03/24/24 11:00 03/24/24 22:10 25 MG Hydralazine HCl 25 mg Q6HR PO 03/24/24 12:00 03/24/24 11:36 25 MG Hydromorphone HCl 2 mg Q4HPRN PRN IV 03/24/24 13:00 03/25/24 12:56 2 MG objective GENERAL: Awake, alert, oriented. Ill-appearing. LUNGS: Clear. CARDIOVASCULAR: Heart sounds are good. ABDOMEN: Soft. laboratory and microbiology Test 03/25/24 14:00 Range/Units Serum Glucose Pending Problem List Elevated troponin. Atypical chest pain. Abdominal pain, lower back pain. Suspected GI bleed. ESRD on HD. Hypertensive urgency. Mild acute on chronic HFpEF. Assessment/Plan Continued all current supportive medical care. Lipitor. Coreg, Hydralazine, Nifedipine. Dilaudid for pain management. IV Hydralazine for SBP > 150. Nitro SL. GI prophylactics. IV antibiotics as ordered. Additional plan as per the hospital course. Plan discussed with: Patient PRAVEEN CASTRO MD Mar 25, 2024 14:31
[2024-03-25] MEDS: VANCOMYCIN 500mg/100mL 100 ML IV ONE (19:05)
--- NOTE | 2024-03-25 22:32 | DVHSR ---
APPROVED REPORT EXAM: Two-dimensional and M-mode echocardiogram with Doppler and color Doppler. Blood Pressure: 152/89 mmHg INDICATION Chest Pain RISK FACTORS Height: 68, Weight: 169 DIMENSIONS LVDd4.7 (3.8-5.7cm)LA (2D)5.0 (1.9-4.0cm)Aortic Root3.6 (2.0-3.7cm) LVDs3.3 (2.5-4.0cm)LA (MM) (1.9-4.0cm)Aortic Cusp Exc2.1 (1.5-2.0cm) EF (%) 55.0 (55-70%)Rt. Atrium4.8 (1.9-4.0cm)Asc. Aorta3.0 cm Mitral Valve MitralMitral Stenosis E wave0.98m/sMV Mean GR.mmHg A wave1.07m/sMV Peak GR.mmHg E/A ratio0.92D MVAcm2 DECEL [id number] 1/2 [id number] IVRTmsDop MVA3.66cm2 Aortic Valve Aortic ValveAortic Stenosis V11.23m/Angel Mean GR.6mmHg V21.74m/Angel Peak GR.12mmHg LVOT Diameter2.1 (1.8-2.4cm)Doppler AVA2.45cm2 AI P 1/2 [id number] Pulmonic Valve V21.52m/s Other Information Technically limited study due to patient laying on his right side. Was non compliant during exam Conclusion NORMAL LV EJECTION FRACTION OF 65% MILD TO MODERATE DEGREE AORTIC REGURGITATION ON DOPPLER STUDY GROSSLY NORMAL VALVE NORMAL RV FUNCTION NO EFFUSION SUGGESTION ; REPEAT ECHO EVERY YEAR FOR FOR AORTIC REGURGITATION
[2024-03-26] VITALS (7 sets, daily range): BP systolic 102–137; BP diastolic 62–93; PULSE 72–95; RESP 18–22; TEMP 97.7–98.8; O2SAT 100
[2024-03-26 07:54] LABS: Anion Gap 16 (5-15); Carbon Dioxide 27 mmol/L (20-31)
[2024-03-26 07:55] LABS: Albumin 4.8 g/dL (3.2-4.8); Total Protein 7.4 g/dL (5.7-8.2)
[2024-03-26 07:59] LABS: Alanine Aminotransferase 25 U/L (7-40); Alkaline Phosphatase 151 U/L (46-116); Aspartate Aminotransferase 51 U/L (13-40); BUN/Creatinine Ratio 4.5 (10.0-20.0); Bilirubin, Total 0.3 mg/dL (0.2-1.0); Blood Urea Nitrogen 43 mg/dL (9-23); Calcium 7.2 mg/dL (8.7-10.4); Chloride 89 mmol/L (98-107); Glucose 119 mg/dL (74-106); Potassium 4.3 mmol/L (3.5-5.1); Sodium 132 mmol/L (136-145)
[2024-03-26 11:13] LABS: Basophils # (auto) 0 10 ^3/uL (0-0.2); Basophils % (auto) 0.1 % (0.0-2.0); Eosinophils # (auto) 0.1 10 ^3/uL (0-0.8); Eosinophils % (auto) 1.1 % (0.0-7.0); Hemoglobin 10.5 g/dL (13.5-17.5); Lymphocytes # (auto) 1.2 10 ^3/uL (0.4-5.4); Lymphocytes % (auto) 9.9 % (10.0-50.0); Mean Corpuscular Hemoglobin 22.8 pg (28.0-32.0); Mean Corpuscular Hgb Conc. 31.8 g/dL (32.0-36.0); Mean Corpuscular Volume 71.6 fL (80.0-100.0); Monocytes # (auto) 1.5 10 ^3/uL (0-1.3); Monocytes % (auto) 12.9 % (0.0-12.0); Neutrophils # (auto) 9.1 10 ^3/uL (1.6-8.6); Nucleated Red Blood Cells % 0.1 %; Platelet Count (auto) 190 10^3/uL (140-450); Red Blood Cells 4.61 10^6/uL (4.5-5.90); Red Cell Distribution Width 16.5 % (11.8-14.3)
[2024-03-26] MEDS ORDERED: LEVO500T91 PO (11:15)
--- NOTE | 2024-03-26 11:18 | DVHPN2 ---
Reviewed: Care Plan, H&P, Labs, Medications, Previous Orders, Radiology Changes from previous H/P or p: No Changes Eyes: No Pain, No Vision change, No Conjunctivae inflammation, No Eyelid inflammation, No Other, No Redness ENT: No Ear pain, No Ear discharge, No Nose pain, No Nose discharge, No Nose congestion, No Mouth pain, No Mouth swelling, No Throat pain, No Throat swelling, No Other Cardiovascular: Chest Pain; No Palpitations, No Orthopnea, No Paroxysmal Noc. Dyspnea, No Edema, No Lt Headedness, No Other Respiratory: No Cough, No Dry, No Shortness of breath, No SOB with excertion, No Wheezing, No Hemoptysis, No Pleuritic Pain, No Sputum, No Other Gastrointestinal: Nausea, Vomiting, Abdominal Pain, Diarrhea, Constipation; No Melena; Hematochezia; No Other Genitourinary: No Dysuria, No Frequency, No Incontinence, No Hematuria, No Retention, No Other Musculoskeletal: No other, No neck pain, No shoulder pain, No arm pain, No back pain, No hand pain, No leg pain, No foot pain Skin: No Rash, No Lesions, No Jaundice, No Bruising, No Other Objective Vitals Vital Signs Date Time Temp Pulse Resp B/P (MAP) Pulse Ox O2 Delivery O2 Flow Rate FiO2 03/26/24 10:00 100 Nasal Cannula* 2 28 03/26/24 09:21 78 130/68 03/26/24 08:52 97.7 18 97.7 Intake/Output Intake and Output 03/26/24 07:00 Intake Total 1365 ml Output Total 0 ml Balance 1365 ml Intake Oral 1340 ml IV Total 25 ml Output Urine Total 0 ml Medications Current Medications Medications Dose Ordered Sig/Ramila Route Start Time Stop Time Status Last Admin Dose Admin Albuterol 2.5 mg Q4HPRN PRN NEB 03/21/24 17:30 03/25/24 11:01 2.5 MG Ipratropium [place] 0.5 mg Q4HPRN PRN NEB 03/21/24 17:30 03/25/24 11:01 0.5 MG Acetaminophen 650 mg Q6HP PRN PO 03/21/24 17:30 03/22/24 11:22 650 MG Ondansetron HCl 4 mg Q4HP PRN IV 03/21/24 17:30 03/24/24 07:10 4 MG Nitroglycerin 0.4 mg Q5MINP PRN SL 03/21/24 17:30 Morphine Sulfate 2 mg Q30M PRN IV 03/21/24 17:30 03/24/24 06:18 2 MG Atorvastatin Calcium 10 mg HS PO 03/22/24 22:00 03/25/24 22:29 10 MG Piperacillin Sod/ Tazobactam Sod 100 ml @ 25 mls/hr Q12H IV 03/22/24 06:00 03/26/24 06:13 25 MLS/HR Pantoprazole Sodium 40 mg BID IV 03/21/24 22:00 03/26/24 09:19 40 MG Hydralazine HCl 10 mg Q6HP PRN IV 03/21/24 23:45 03/24/24 08:35 10 MG Docusate Sodium 100 mg BIDPRN PRN PO 03/22/24 22:00 03/22/24 22:14 100 MG Mupirocin 1 applic BID EACHNOSTRI 03/23/24 15:00 03/28/24 14:59 03/26/24 09:22 1 APPLIC Sevelamer HCl 1,600 mg TIDWM PO 03/23/24 18:00 03/26/24 09:19 1,600 MG Vancomycin HCl 0 ml @ 0 mls/hr UD IV 03/23/24 14:45 Nifedipine 90 mg DAILY PO 03/24/24 11:00 03/26/24 09:20 90 MG Carvedilol 25 mg Q12HR PO 03/24/24 11:00 03/26/24 09:21 25 MG Hydralazine HCl 25 mg Q6HR PO 03/24/24 12:00 03/26/24 06:13 25 MG Hydromorphone HCl 2 mg Q4HPRN PRN IV 03/24/24 13:00 03/26/24 07:43 2 MG Laboratory Results Laboratory Tests 03/26/24 06:48 03/26/24 10:40 Chemistry Test 03/25/24 14:00 03/26/24 06:48 Albumin 4.6 g/dL (3.2-4.8) 4.8 g/dL (3.2-4.8) Calcium Level 6.4 mg/dL (8.7-10.4) L 7.2 mg/dL (8.7-10.4) L Total Protein 7.6 g/dL (5.7-8.2) 7.4 g/dL (5.7-8.2) LFT Test 03/25/24 14:00 03/26/24 06:48 Alanine Aminotransferase (ALT) 20 U/L (7-40) 25 U/L (7-40) Alkaline Phosphatase 132 U/L (46-116) H 151 U/L (46-116) H Aspartate Amino Transferase (AST) 34 U/L (13-40) 51 U/L (13-40) H Total Bilirubin 0.2 mg/dL (0.2-1.0) 0.3 mg/dL (0.2-1.0) Microbiology Microbiology Date/Time Source Procedure Growth Status 03/23/24 14:44 Blood Blood Culture - Preliminary NO GROWTH AFTER 48 HOURS OF INCUBATION. Resulted 03/22/24 08:54 Nose MRSA Screen - Final Methicillin Resistant S.aureus Complete Assessment/Plan Assessment/Plan Intractable abdominal pain with melena: CT abdomen pelvis without contrast negative GI consult appreciated stool for occult blood negative Atypical chest pain rule out acute coronary syndrome cardiology consult appreciated ESRD on hemodialysis , Nephrology consult appreciated Sepsis Elevated creatinine Use of home oxygen Chronic narcotic dependency Elevated liver function tests Uncontrolled hypertension Hypercholesterolemia MRSA screen positive: Bactroban nasal ointment COPD exacerbation Asthma Acute CHF exacerbation History of seizures History of TIA at the bedside Time spent 65 minutes Patient is full code Plan discussed with: Patient Date of Service: Mar 26, 2024 Billing Provider: NANO COELHO MD Common Visit Codes: [id number] INP/OBS CARE(HIGH) NANO COELHO MD Mar 26, 2024 11:18
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
--- NOTE | 2024-03-26 14:51 | DVHPN2 ---
Progress Note Date Seen: Mar 26, 2024 Medical Necessity Reason Pt with a Central, PICC or Fol: No Subjective Review of Systems: CVS:Abnormal Objective vital signs Vital Sign Date Time Temp Pulse Resp B/P (MAP) Pulse Ox O2 Delivery O2 Flow Rate FiO2 03/26/24 12:44 98.8 81 18 102/62 (75) 100 98.8 03/26/24 10:00 Nasal Cannula* 2 28 Total Intake and Output 03/25/24 03/25/24 03/26/24 15:00 23:00 07:00 Intake Total 25 ml 860 ml 480 ml Output Total 0 ml Balance 25 ml 860 ml 480 ml medications Current Medications Medications Dose Ordered Sig/Ramila Route Start Time Stop Time Status Last Admin Dose Admin Albuterol 2.5 mg Q4HPRN PRN NEB 03/21/24 17:30 03/25/24 11:01 2.5 MG Ipratropium [place] 0.5 mg Q4HPRN PRN NEB 03/21/24 17:30 03/25/24 11:01 0.5 MG Acetaminophen 650 mg Q6HP PRN PO 03/21/24 17:30 03/22/24 11:22 650 MG Ondansetron HCl 4 mg Q4HP PRN IV 03/21/24 17:30 03/24/24 07:10 4 MG Nitroglycerin 0.4 mg Q5MINP PRN SL 03/21/24 17:30 Morphine Sulfate 2 mg Q30M PRN IV 03/21/24 17:30 03/24/24 06:18 2 MG Atorvastatin Calcium 10 mg HS PO 03/22/24 22:00 03/25/24 22:29 10 MG Piperacillin Sod/ Tazobactam Sod 100 ml @ 25 mls/hr Q12H IV 03/22/24 06:00 03/26/24 06:13 25 MLS/HR Pantoprazole Sodium 40 mg BID IV 03/21/24 22:00 03/26/24 09:19 40 MG Hydralazine HCl 10 mg Q6HP PRN IV 03/21/24 23:45 03/24/24 08:35 10 MG Docusate Sodium 100 mg BIDPRN PRN PO 03/22/24 22:00 03/22/24 22:14 100 MG Mupirocin 1 applic BID EACHNOSTRI 03/23/24 15:00 03/28/24 14:59 03/26/24 09:22 1 APPLIC Sevelamer HCl 1,600 mg TIDWM PO 03/23/24 18:00 03/26/24 09:19 1,600 MG Vancomycin HCl 0 ml @ 0 mls/hr UD IV 03/23/24 14:45 Nifedipine 90 mg DAILY PO 03/24/24 11:00 03/26/24 09:20 90 MG Carvedilol 25 mg Q12HR PO 03/24/24 11:00 03/26/24 09:21 25 MG Hydralazine HCl 25 mg Q6HR PO 03/24/24 12:00 03/26/24 06:13 25 MG Hydromorphone HCl 2 mg Q4HPRN PRN IV 03/24/24 13:00 03/26/24 07:43 2 MG Examination: GENERAL:Abnormal, CVS:Abnormal laboratory and microbiology Laboratory Tests 03/26/24 10:40 03/26/24 06:48 Test 03/26/24 06:48 Range/Units Serum Glucose 119 H 74-106 mg/dL Microbiology Date/Time Source Procedure Growth Status 03/23/24 14:44 Blood Blood Culture - Preliminary NO GROWTH AFTER 48 HOURS OF INCUBATION. Resulted 03/22/24 08:54 Nose MRSA Screen - Final Methicillin Resistant S.aureus Complete Problem List/Assessment/Plan Problem List/Assessment/Plan ESRD HTN hyperkalemia metabolic acidosis abdomen pain HD saturday oral BP meds nifedipine , coreg, hydralazine s nausea meds phos binders renal diet Plan discussed with: Patient Dietary Evaluation Review Comments: Continue current plan of care Expected Outcomes/Goals: F/U in 3-5 days OLI MORTON MD Mar 26, 2024 14:51
--- NOTE | 2024-03-26 23:19 | DVHPN2 ---
Progress Note - Dictate Date Seen: Mar 26, 2024 Medical Necessity Reason Pt with a Central, PICC or Fol: No Subjective Patient was seen and evaluated in follow up. Patient has no new complaints at this time. WBC 12, BUN 43, TRACK MANAGER 9.60, AST 51. Patient is cardiac stable for discharge. Telemetry reviewed. vital signs Vital Sign Date Time Temp Pulse Resp B/P (MAP) Pulse Ox O2 Delivery O2 Flow Rate FiO2 03/26/24 12:44 98.8 81 18 102/62 (75) 100 98.8 03/26/24 10:00 Nasal Cannula* 2 28 Total Intake and Output 03/25/24 03/25/24 03/26/24 14:59 22:59 06:59 Intake Total 25 ml 860 ml 480 ml Output Total 0 ml Balance 25 ml 860 ml 480 ml medications Current Medications Medications Dose Ordered Sig/Ramila Route Start Time Stop Time Status Last Admin Dose Admin Albuterol 2.5 mg Q4HPRN PRN NEB 03/21/24 17:30 03/25/24 11:01 2.5 MG Ipratropium [place] 0.5 mg Q4HPRN PRN NEB 03/21/24 17:30 03/25/24 11:01 0.5 MG Acetaminophen 650 mg Q6HP PRN PO 03/21/24 17:30 03/22/24 11:22 650 MG Ondansetron HCl 4 mg Q4HP PRN IV 03/21/24 17:30 03/24/24 07:10 4 MG Nitroglycerin 0.4 mg Q5MINP PRN SL 03/21/24 17:30 Morphine Sulfate 2 mg Q30M PRN IV 03/21/24 17:30 03/24/24 06:18 2 MG Atorvastatin Calcium 10 mg HS PO 03/22/24 22:00 03/25/24 22:29 10 MG Piperacillin Sod/ Tazobactam Sod 100 ml @ 25 mls/hr Q12H IV 03/22/24 06:00 03/26/24 06:13 25 MLS/HR Pantoprazole Sodium 40 mg BID IV 03/21/24 22:00 03/26/24 09:19 40 MG Hydralazine HCl 10 mg Q6HP PRN IV 03/21/24 23:45 03/24/24 08:35 10 MG Docusate Sodium 100 mg BIDPRN PRN PO 03/22/24 22:00 03/22/24 22:14 100 MG Mupirocin 1 applic BID EACHNOSTRI 03/23/24 15:00 03/28/24 14:59 03/26/24 09:22 1 APPLIC Sevelamer HCl 1,600 mg TIDWM PO 03/23/24 18:00 03/26/24 09:19 1,600 MG Vancomycin HCl 0 ml @ 0 mls/hr UD IV 03/23/24 14:45 Nifedipine 90 mg DAILY PO 03/24/24 11:00 03/26/24 09:20 90 MG Carvedilol 25 mg Q12HR PO 03/24/24 11:00 03/26/24 09:21 25 MG Hydralazine HCl 25 mg Q6HR PO 03/24/24 12:00 03/26/24 06:13 25 MG Hydromorphone HCl 2 mg Q4HPRN PRN IV 03/24/24 13:00 03/26/24 07:43 2 MG objective GENERAL: Awake, alert, oriented. Ill-appearing. LUNGS: Clear. CARDIOVASCULAR: Heart sounds are good. ABDOMEN: Soft. laboratory and microbiology Laboratory Tests 03/26/24 10:40 03/26/24 06:48 Test 03/26/24 06:48 Range/Units Serum Glucose 119 H 74-106 mg/dL Problem List Elevated troponin. Atypical chest pain. Abdominal pain, lower back pain. Suspected GI bleed. ESRD on HD. Hypertensive urgency. Mild acute on chronic HFpEF. Assessment/Plan Continued all current supportive medical care. Lipitor. Coreg, Hydralazine, Nifedipine. Dilaudid for pain management. GI prophylactics. IV antibiotics as ordered. Additional plan as per the hospital course. Dietary Evaluation Review Comments: Continue current plan of care Expected Outcomes/Goals: F/U in 3-5 days Plan discussed with: Patient PRAVEEN CASTRO MD Mar 26, 2024 12:52
== END 2024-03-26 15:15 | disposition home or self-care (01) | DRG 871 ==
LOC: EDBD 10:15 → ER 10:15 → TELE 17:18 → TELE-WESTW 22:23
PROVIDERS: ADMIT Family Medicine; ATTEND Family Medicine
PROC: 5A1D70Z Performance of Urinary Filtration, Intermittent, Less than 6 Hours Per Day (ICD-10-PCS; principal; 2024-03-24)
PROC: 5A1D70Z Performance of Urinary Filtration, Intermittent, Less than 6 Hours Per Day (ICD-10-PCS; 2024-03-25)
DX: A41.9 Sepsis, unspecified organism (principal); I50.33 Acute on chronic diastolic (congestive) heart failure; N18.6 End stage renal disease; I24.9 Acute ischemic heart disease, unspecified; I13.2 Hypertensive heart and chronic kidney disease with heart failure and with stage 5 chronic kidney disease, or end stage renal disease; J44.1 Chronic obstructive pulmonary disease with (acute) exacerbation; K92.1 Melena; F11.20 Opioid dependence, uncomplicated; A04.9 Bacterial intestinal infection, unspecified; F12.10 Cannabis abuse, uncomplicated; D64.9 Anemia, unspecified; E78.00 Pure hypercholesterolemia, unspecified; E87.5 Hyperkalemia; G40.909 Epilepsy, unspecified, not intractable, without status epilepticus; I16.0 Hypertensive urgency; F10.10 Alcohol abuse, uncomplicated; M54.50 Low back pain, unspecified; K42.9 Umbilical hernia without obstruction or gangrene; G89.4 Chronic pain syndrome; Z91.013 Allergy to seafood; Z99.2 Dependence on renal dialysis; Z82.49 Family history of ischemic heart disease and other diseases of the circulatory system; Z86.73 Personal history of transient ischemic attack (TIA), and cerebral infarction without residual deficits; Z80.0 Family history of malignant neoplasm of digestive organs; Z83.3 Family history of diabetes mellitus; Z99.81 Dependence on supplemental oxygen
CPT/HCPCS: 36415; 71045; 74177; 80053; 80061; 80202; 82270; 83690; 84100; 84443; 84484; 85025; 85610; 85730; 86850; 86900; 86901; 87040; 87077; 87081; 90935; 93005; 93306; 94640; 99291; G0378; J1885; J2405; J2470; J2543; Q0162